=== PATIENT | male | born 1965 | race Asian ===

== ENCOUNTER 2018-08-15 09:41 | Outpatient (REF) | payer BC, SELFPAY ==
[2018-08-15 12:44] LABS: Anion Gap 8.3 mmol/L (3-11); BUN 28 mg/dL (7-18); CO2 28.7 mmol/L (21.0-32.0); CREATININE 1.09 mg/dL (0.70-1.30); Calcium 9.2 mg/dL (8.5-10.1); Chloride 103 mmol/L (98-107); Glucose 172 mg/dL (70-100); Potassium 3.5 mmol/L (3.5-5.1); Sodium 140 mmol/L (136-145)
== END 2018-08-15 10:01 ==
LOC: NCHCN 09:41
PROVIDERS: Visit Provider Nurse Practitioner Family
DX: E10.9 Type 1 diabetes mellitus without complications (principal)
CPT/HCPCS: 80048

== ENCOUNTER 2018-10-31 08:58 | Day surgery (SDC) | payer BC, SELFPAY ==
--- NOTE | 2018-10-31 06:12 | W.COLOREPORT ---
Date of service: 10/31/18 Time of Service: 10:03 Colonoscopy Report Date of procedure: 10/31/18 Pre-op diagnosis general: Colon Cancer Screening Post-op diagnosis procedure note: same Procedure: Colonoscopy Surgeon: Carmel Jackson Anesthesia proc note operative: MAC (Raisa Bhat CRNA/ ASA 3) Estimated blood loss (mL): 0 Pathology: none sent Complications: None Disposition: same day Indications: Mr. Chung is a pleasant 53 year old male seen in the office for a screening colonoscopy. Risks, benefits and complications have been reviewed. Complications include but are not limited to bleeding, pain, perforation, missed small lesion/polyp, sore throat, aspiration and adverse reaction to the medications. Questions were entertained and answered to their satisfaction and they wished to proceed. No guarantees were given or implied. Prep: Miralax/Dulcolax Procedure Start Time: :03 Procedure End Time: 10:41 Retraction Time: 29 minutes Findings: Right sided Diverticulosis Procedure Description: After informed consent was obtained the patient was taken to the procedure room and placed in a left decubitous position. Monitors were applied and a time out was done. The patients name, date of , procedure, allergies to medications and metal in their body was reviewed. The patient was then sedated. Once sedated and comfortable a rectal exam was done. External exam was normal. Internal exam revealed a normal sphincter tone and no palpable masses. The prostate was not felt. The scope was then introduced and retro-flexed. No internal hemorrhoids were identified. The scope was then advanced to the cecum without difficulty. The TI and appendiceal orifice were identified. The prep was OK. There was a lot of bile and bubbles in the right side of the colon. This was irrigated as best as possible. The scope was then slowly retracted over 29 minutes back into the rectum. There were no polyps identified. There was moderate diverticulosis of the right colon. The scope was removed and the patient was woken up and taken back to Same day surgery in stable condition. The patient tolerated the procedure well and there were no immediate complications. Follow up: The patient should follow up in 10 years unless they develop changes in bowel habits or other new gastrointestinal complaints.
--- NOTE | 2018-10-31 06:14 | W.PM.DSUDISC ---
Discharge Plan Disposition Patient Disposition: HOME Condition: Good Discharge Details Reason For Visit: Colon Cancer Screening Attending Provider: Carmel Jackson Primary Care Provider: Silke Lyon Home Meds and New Rx's Prescriptions: Continued cholecalciferol (vitamin D3) 1,000 unit capsule 1,000 unit PO DAILY RF: 0 allopurinol 100 MG tablet 200 mg PO BID RF: 0 metformin [Glucophage] 1,000 MG tablet 1,000 mg PO BID RF: 0 aspirin 325 MG tablet 162 mg PO DAILY RF: 0 chlorthalidone 25 MG tablet 50 mg PO DAILY RF: 0 amlodipine 10 MG tablet 10 mg PO DAILY RF: 0 lisinopril 40 MG tablet 40 mg PO DAILY RF: 0 atorvastatin [Lipitor] 40 MG tablet 40 mg PO DAILY RF: 0 indomethacin 50 MG capsule 50 mg PO TID PRNRF: 0 labetalol 100 MG tablet 100 mg PO BID RF: 0 Tresiba FlexTouch U-200 200 UNIT/ML insulin pen 90 units Sub-Q DAILY RF: 0 Novolin R Regular U-100 Insuln 100 unit/mL solution 40 unit Sub-Q TID RF: 0 Invokana 300 MG tablet 300 mg PO DAILY AM RF: 0 Novolin N NPH U-100 Insulin 100 unit/mL Suspension 70 units subcut HS RF: 0 Discontinued bisacodyl [Dulcolax (bisacodyl)] 5 mg tablet,delayed release (DR/EC) 5 mg PO ONCE Qty: 4 RF: 0 polyethylene glycol 3350 17 gram/dose powder 255 g PO ONCE Qty: 255 RF: 0 Discharge Instructions Instructions: Colonoscopy (DC) Additional Instructions: Findings: Normal colon Follow up: 10 years Please call if you develop: fevers >101.5 Nausea or Vomiting Abdominal pain that is not transient DAY SURGERY UNIT POST COLONOSCOPY INSTRUCTIONS 1. Because there will be medication in your system for the next 24 hours, you may feel a little sleepy. Your coordination will be affected. Therefore: a. Do not drive or operate dangerous equipment for 24 hours. b. Do not drink alcohol beverages for 24 hours (not even beer). c. Plan to go home and rest for the day. 2. Generally there are no restrictions on your activity after a day or so has gone by, but you may feel a bit fatigued for a few days. 3 After you arrive home you may have a light meal and return to a normal diet as you can tolerate it without feeling sick to your stomach. 4. After surgery, you may feel pain or discomfort. This should be only transient, but if it persists please contact your doctor. 5. If there are any questions regarding the findings of your procedure, please feel free to contact your doctor. 6. If you are unable to contact your doctor with a problem, contact the hospital at [phone]. 7. Continue all your regular medications unless directed otherwise. I understand the above instructions and have no questions. Signature of Patient or Responsible Adult Escort Date/Time Name of Responsible Adult Escort Signature of Nurse Date/Time Activity:: Activity as Tolerated Diet:: As Tolerated Discharge Orders Discharge Orders: Discharge Order (Routine); Ordered 10/31/18 Ordered By: Carmel Jackson DS: Diagnosis Discharge Diagnosis (1) S/P colonoscopy: Status: Acute
[2018-10-31 09:18] VITALS: BP 137/77; PULSE 72; RESP 16; TEMP 35.9; O2SAT 96
[2018-10-31] MEDS: Lactated Ringers 1,000 ML 80 ML IV (09:48)
[2018-10-31 11:23] VITALS: BP 135/84; PULSE 73; RESP 16; TEMP 36
== END 2018-10-31 11:27 | disposition home or self-care (01) ==
PROVIDERS: PCP Nurse Practitioner Family; Visit Provider Surgery
PROC: 0DJD8ZZ Inspection of Lower Intestinal Tract, Via Natural or Artificial Opening Endoscopic (ICD-10-PCS; CPT 45378; principal; 2018-10-31 10:00)
DX: Z12.11 Encounter for screening for malignant neoplasm of colon (principal); K57.30 Diverticulosis of large intestine without perforation or abscess without bleeding; E11.9 Type 2 diabetes mellitus without complications; Z79.4 Long term (current) use of insulin; I10 Essential (primary) hypertension; G47.33 Obstructive sleep apnea (adult) (pediatric)
CPT/HCPCS: 45378

== ENCOUNTER 2019-03-27 01:22 | Outpatient (CLI) | payer BC, SELFPAY ==
--- NOTE | 2019-03-27 10:20 | DIABASSESS_ITS ---
DESCRIPTION/ASSESSMENT: Johnson Chung presents for diabetes self management focused on nutrition. Current A1c 9.7. He sees Dr. Deal at [facility] for diabetes management. He reports medication regimen of Tresiba 90 units; NPH 70 units; Regular insulin 40 units per meal. He also takes Invocana and Metformin. States he has had 4 hypoglycemic episodes in 10 years. Johnson admits he 'likes to eat' and also recognizes that he stress eats. He describes being bullied as a kid and was determined to be bigger than those kids. He has 2 eggs, 2 sausage, hash browns and a [place] toast for breakfast; sandwich and diet soda for lunch; 2 cans corporate executive chef boy R iris for lunch with banana, yoplait and 2 diet sodas. He has a slim steven at break. For supper his cooks him noodles or fried rice. In the evening he eats pringles. He admits to high stress caring for 2 adult children with autism. His spends her time at home napping or watching TV. Three nights a week they eat with his mother. States he is drained at the end of his work day and does no physical activity. INTERVENTION: Discussed his goals for diabetes. He would like to 'get in shape'. Reviewed long-term complications of uncontrolled diabetes. Discussed food choices he could change. He can give up rice, but not noodles. Discussed hunger when snacking in the evening. Discussed possible supports for changing some behaviors including seeing the Behavioral Therapist at his provider office. Discussed bariatric surgery and need to find a different stress management plan if he chooses surgery. PLAN: He will look at ways to decrease the volume of food by cutting one item at breakfast; cutting lunch to 1 can of food; increasing vegetables. He will consider bariatric surgery Referral will be made to Behavioral Health Specialist at [facility] Individual MNT __3__ units billed TIME IN: 1020 OUT: 1110 No DM group education series being offered at this time.
== END 2019-03-27 01:42 ==
PROVIDERS: PCP Nurse Practitioner Family; Visit Provider Dietitian, Registered
DX: E11.9 Type 2 diabetes mellitus without complications (principal); Z79.4 Long term (current) use of insulin; Z71.3 Dietary counseling and surveillance
CPT/HCPCS: 97802

== ENCOUNTER 2019-04-10 01:13 | Outpatient (CLI) | payer BC, SELFPAY ==
--- NOTE | 2019-04-10 13:15 | DIABASSESS_ITS ---
DESCRIPTION/ASSESSMENT: Johnson Chung presents for diabetes follow up focused on weight management. He feels he is eating less with the help of Trulicity. He has cut his portion of egg, sausage, and has given up potato at breakfast. He has cut rice portion by 1/2 and will eat only 1 can of Tire Worker boy R D. He still loves noodles. He does admit snacking on junk food at times. He is having trouble with exercise and feels this is his biggest action to work on. 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 States his fasting blood sugar is generally 135-195. INTERVENTION: Discussed food choices; hunger/fullness. Encouraged him to continue decreasing his portions to prevent stomach upset. Further suggested he may need to decrease his insulin. Reviewed hypoglycemia symptoms. Brainstormed physical activity ideas. He thinks he may be able to go to the gym on weekends and take his kids. He also agrees to walk 20 minutes after supper twice in a week. Did take random blood sugar after lunch at 235. Given his complicated insulin regimen, he may benefit from wearing the Professional CGM and will discuss this with him at his follow up appointment. ACTION PLAN: Walk 2 days a week after supper 20 minutes; use [employer] [facility] on weekend Continue cutting portions; watch for hypoglycemia symptoms. Individual MNT __2__ units billed No DM group education series being offered at this time.
== END 2019-04-10 01:33 ==
PROVIDERS: PCP Nurse Practitioner Family; Visit Provider Dietitian, Registered
DX: E11.9 Type 2 diabetes mellitus without complications (principal); Z79.4 Long term (current) use of insulin; Z71.3 Dietary counseling and surveillance
CPT/HCPCS: 97803

== ENCOUNTER 2019-06-05 09:56 | Emergency (ER) | payer BC, SELFPAY ==
[2019-06-05 10:07] VITALS: BP 132/66; PULSE 78; RESP 20; TEMP 36.8; O2SAT 97
--- NOTE | 2019-06-05 10:17 | W.ED.GENAD ---
Discharge Plan Disposition Patient Disposition: HOME Condition: Good Discharge Details Chief Complaint: Orthopedic Clinical Impression: Elbow tendinitis Primary Care Provider: Silke Lyon ED Provider: Hina Hudson Home Meds and New Rx's Prescriptions: Continued cholecalciferol (vitamin D3) 1,000 unit capsule 1,000 unit PO DAILY RF: 0 Trulicity 1.5 mg/0.5 mL pen injector 1.5 mg SC QWEEK RF: 0 allopurinol 100 MG tablet 200 mg PO BID RF: 0 metformin [Glucophage] 1,000 MG tablet 1,000 mg PO BID RF: 0 aspirin 325 MG tablet 162 mg PO DAILY RF: 0 chlorthalidone 25 MG tablet 50 mg PO DAILY RF: 0 amlodipine 10 MG tablet 10 mg PO DAILY RF: 0 lisinopril 40 MG tablet 40 mg PO DAILY RF: 0 atorvastatin [Lipitor] 40 MG tablet 40 mg PO DAILY RF: 0 indomethacin 50 MG capsule 50 mg PO TID PRNRF: 0 labetalol 100 MG tablet 100 mg PO BID RF: 0 Tresiba FlexTouch U-200 200 UNIT/ML insulin pen 90 units Sub-Q DAILY RF: 0 Novolin R Regular U-100 Insuln 100 unit/mL solution 40 unit Sub-Q TID RF: 0 Invokana 300 MG tablet 300 mg PO DAILY AM RF: 0 Novolin N NPH U-100 Insulin 100 unit/mL Suspension 70 units subcut HS RF: 0 Discharge Instructions Instructions: Tendinitis (ED) Additional Instructions: Ice packs or ice massage to the area as discussed. Rest activities as tolerated. Use forearm strap for tennis elbow strap as discussed. May use Tylenol for soreness if needed. May use your indomethacin or ibuprofen for inflammation if needed for 3 days. Follow-up with your orthopedic doctor for reevaluation Return for any worsening or concerns sooner if needed Stand Alone Forms: Work Release Discharge Data Discharge Date/Time-TO BE ENTERED AT DEPARTURE: 06/05/19 10:32 Medical Decision Making Patient's history and physical exam are consistent with lateral epicondylitis of the left arm with tendinitis. Recommended conservative treatments. Patient agrees with plan of care. Is undergoing physical therapy for the right arm as well as under orthopedic evaluation for right arm tendinitis. He will follow with his specialist. Tennis elbow strap encouraged. HPI General Date/Time Provider Initiated Documentation: 06/05/19 10:07. HPI Narrative: Patient presents for complaints of left elbow pain. Patient denies any injury or trauma. Patient is currently undergoing treatment with orthopedic doctor as well as physical therapy for right elbow tendinitis. Has been minimizing use of right elbow therefore increasing use of left arm. Now having onset of left arm soreness which is very similar nature. Again denies any injury or trauma. No associated numbness, tingling or weakness. Patient reports pain at the lateral elbow as well as into the forearm worse with range of motion. Improved with rest. Worse in the last few days. No rashes at the site. No ill feeling. No other concerns or complaints at this time Related Data Home Medications Medication Instructions Recorded Confirmed allopurinol 200 mg PO BID 06/09/13 06/05/19 amlodipine 10 mg PO DAILY 06/09/13 06/05/19 aspirin 162 mg PO DAILY 06/09/13 06/05/19 chlorthalidone 50 mg PO DAILY 06/09/13 06/05/19 lisinopril 40 mg PO DAILY 06/09/13 06/05/19 metformin [Glucophage] 1,000 mg PO BID 06/09/13 06/05/19 Invokana 300 mg PO DAILY AM 08/14/16 06/05/19 Tresiba FlexTouch U-200 90 units SUB-Q DAILY 10/12/17 06/05/19 atorvastatin [Lipitor] 40 mg PO DAILY 10/12/17 06/05/19 indomethacin 50 mg PO TID PRN 10/12/17 06/05/19 labetalol 100 mg PO BID 10/12/17 06/05/19 cholecalciferol (vitamin D3) 1,000 1,000 unit PO DAILY 10/10/18 06/05/19 unit capsule insulin regular human 100 unit/mL 40 unit SUB-Q TID ml 10/10/18 06/05/19 injection solution Novolin N NPH U-100 Insulin 70 units SUBCUT HS 10/27/18 06/05/19 dulaglutide 1.5 mg/0.5 mL 1.5 mg SC QWEEK 03/27/19 06/05/19 subcutaneous pen injector Allergies Allergy/AdvReac Type Severity Reaction Status Date / Time No Known Allergies Allergy Unverified 06/05/19 10:10 General Stated Complaint: Orthopedic NOEMI: 4 Review of Systems Review of Systems Narrative: CONSTITUTIONAL: The patient denies fevers, chills. EYES: Denies vision changes, blurry vision, or eye pain. ENT: Denies hearing changes, tinnitus, vertigo, sore throat. CARDIAC: Denies chest pain, SOB. RESPIRATORY: Denies cough, sputum. Denies difficulty breathing. GASTROINTESTINAL: Denies abdominal pain, changes in bowel, vomiting or nausea. GENITOURINARY: Denies dysuria, or frequency of urination. MUSCULOSKELETAL: No gait changes. Patient with left elbow pain and forearm pain. NEUROLOGIC: Denies headaches, Denies focal weakness. Denies numbness. INTEGUMENT: Denies rashes. PSYCHIATRIC: Denies behavior changes. Denies anxiety or depression. ENDOCRINOLOGY: Denies fatigue. 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 Well hydrated. Alert and alert. HENMT: Head nomocephalic, normal to inspection. Atraumatic. Hearing grossly normal. EYES: General normal appearance. Alignment normal. Eyelids normal. Conjunctiva normal. NECK: Normal visual inspection. FROM. Trachea midline. No Midline tenderness. CHEST: Normal insepection of the chest. RESP: Normal respiratory effort. Speaking full sentences. No cough. No audible wheezing. No retractions. CARDIO: No JVD. MUSCULOSKELETAL: Normal Gait. FROM of all extremities. No shoulder pain with palpation. No humeral pain with palpation. Mild lateral epic condyle tenderness. Mild forearm tenderness. No wrist pain with palpation. Pain in the elbow with flexion of the wrist. Pulses intact distally. No skin rashes. Setter Induction Heating Equipment strength intact. Distal neurovascularly intact SKin: intact, dry no rash NEURO: Alert and awake. Speech clear. PSYCH: Normal affect. Cooperative. Course Vital Signs Vital signs: Vital Signs Temperature 36.8 C 06/05/19 10:07 Pulse 78 06/05/19 10:07 Respiratory Rate 20 06/05/19 10:07 Blood Pressure 132/66 06/05/19 10:07 Pulse Oximetry 97 06/05/19 10:07 Temperature 36.8 C 06/05/19 10:07 Temperature Source Skin 06/05/19 10:07 Pulse 78 06/05/19 10:07 Respiratory Rate 20 06/05/19 10:07 Blood Pressure 132/66 06/05/19 10:07 Blood Pressure Position Sitting 06/05/19 10:07 Pulse Oximetry 97 06/05/19 10:07 Oxygen Delivery Method Room Air 06/05/19 10:07 Oxygen Flow Rate 0 06/05/19 10:07 Pain Level 6 06/05/19 10:07
== END 2019-06-05 10:32 | disposition home or self-care (01) ==
PROVIDERS: Emergency Provider Physician Assistant; PCP Nurse Practitioner Family
DX: M77.12 Lateral epicondylitis, left elbow (principal); M77.9 Enthesopathy, unspecified; E11.9 Type 2 diabetes mellitus without complications; Z79.4 Long term (current) use of insulin; I10 Essential (primary) hypertension
CPT/HCPCS: 99283

== ENCOUNTER 2019-09-24 08:30 | Emergency (ER) | payer BC, SELFPAY ==
[2019-09-24 08:33] VITALS: BP 149/84; PULSE 88; TEMP 36.2; O2SAT 95
--- NOTE | 2019-09-24 08:53 | ED.GENADUL_ITS ---
Discharge Plan Disposition Patient Disposition: HOME Condition: Stable Discharge Details Chief Complaint: Cellulitis Clinical Impression: Leg wound, right, Bilateral leg edema Primary Care Provider: Silke Lyon ED Provider: Jordyn Huff Home Meds and New Rx's Prescriptions: New mupirocin 2 % ointment 1 applic TP TID Qty: 15 RF: 0 cephalexin [Keflex] 500 mg capsule 500 mg PO QID 7 Days Qty: 28 RF: 0 Continued cholecalciferol (vitamin D3) 1,000 unit capsule 1,000 unit PO DAILY RF: 0 Trulicity 1.5 mg/0.5 mL pen injector 1.5 mg SC QWEEK RF: 0 allopurinol 100 MG tablet 200 mg PO BID RF: 0 metformin [Glucophage] 1,000 MG tablet 1,000 mg PO BID RF: 0 aspirin 325 MG tablet 162 mg PO DAILY RF: 0 chlorthalidone 25 MG tablet 50 mg PO DAILY RF: 0 amlodipine 10 MG tablet 10 mg PO DAILY RF: 0 lisinopril 40 MG tablet 40 mg PO DAILY RF: 0 atorvastatin [Lipitor] 40 MG tablet 40 mg PO DAILY RF: 0 indomethacin 50 MG capsule 50 mg PO TID PRNRF: 0 labetalol 100 MG tablet 100 mg PO BID RF: 0 Tresiba FlexTouch U-200 200 UNIT/ML insulin pen 90 units Sub-Q DAILY RF: 0 Novolin R Regular U-100 Insuln 100 unit/mL solution 40 unit Sub-Q TID RF: 0 Invokana 300 MG tablet 300 mg PO DAILY AM RF: 0 Novolin N NPH U-100 Insulin 100 unit/mL Suspension 70 units subcut HS RF: 0 Discharge Instructions Instructions: Acute Wound Care (ED), Leg Edema (ED) Additional Instructions: Keep wound clean and dry. Apply the topical Bactroban ointment to the affected area 3 times daily. Cover the wound with a nonadherent dressing. Wear compression stockings as much as possible to help with your leg swelling. If you have no relief or worsening of leg pain, swelling, redness, start the oral antibiotics. Call your primary care doctor tomorrow to schedule a follow-up appointment for reevaluation this week. Return immediately to the emergency department if you develop any significant worsening of symptoms including fever, red streaking or significant pain. Discharge Data Discharge Physician: Jordyn Huff Medical Decision Making 54-year-old male with a history of morbid obesity, gout, diabetes presents with right leg wound for the past few days. He states he initially sustained the wound on a piece of sharp edge of aluminum 1 year ago which then mostly healed and then returned a few days ago. He denies any known specific new injury. Right distal lateral leg notes two small wounds which appear very minimally superficially infected. There is no evidence of an abscess. He appears nontoxic. Patient has significantly indurated bilateral lower extremities which appear chronic and likely due to patient's frequent standing at work, his weight, and possibly an element of lymphedema. He states he had worn compression stockings 1 year ago but not since then. The area was cleaned and topical antibiotic ointment and nonadherent dressing was placed. We will give a prescription for Bactroban which I think will likely be sufficient at this time. I stressed the importance to patient to keep his legs elevated and wear compression stockings as much as possible as this will be most beneficial for wound healing. We will also send with a prescription for Keflex if symptoms do not improve or worsen. He was advised to follow-up with his primary care doctor this week for reevaluation. Usual and customary return precautions given prior to discharge. Medical Records Medical records reviewed: Yes I reviewed the patient's medical records. HPI General Mode of arrival: ambulatory . Date/Time Provider Initiated Documentation: 09/24/19 08:41 . Limitations to Documentation: no limitations . Information obtained by: patient . History of Present Illness 54 year old M presents to the emergency department with the chief complaint of R leg wound, Quality is described as aching, Patient started experiencing this day(s) (4) and it has been constant. No relieving factors improve symptom(s), No exacerbating factors reported . Patient notes denies fever/chills, headaches, loss of appetite, malaise, seizure, shortness of breath, syncope and weakness. Patient did receive the following treatments prior to arrival, other (topical antibiotic ointment) Related Data Home Medications Medication Instructions Recorded Confirmed allopurinol 200 mg PO BID 06/09/13 09/24/19 amlodipine 10 mg PO DAILY 06/09/13 09/24/19 aspirin 162 mg PO DAILY 06/09/13 09/24/19 chlorthalidone 50 mg PO DAILY 06/09/13 09/24/19 lisinopril 40 mg PO DAILY 06/09/13 09/24/19 metformin [Glucophage] 1,000 mg PO BID 06/09/13 09/24/19 Invokana 300 mg PO DAILY AM 08/14/16 09/24/19 Tresiba FlexTouch U-200 90 units SUB-Q DAILY 10/12/17 09/24/19 atorvastatin [Lipitor] 40 mg PO DAILY 10/12/17 09/24/19 indomethacin 50 mg PO TID PRN 10/12/17 09/24/19 labetalol 100 mg PO BID 10/12/17 09/24/19 cholecalciferol (vitamin D3) 25 1,000 unit PO DAILY 10/10/18 09/24/19 mcg (1,000 unit) capsule insulin regular human 100 unit/mL 40 unit SUB-Q TID ml 10/10/18 09/24/19 injection solution Novolin N NPH U-100 Insulin 70 units SUBCUT HS 10/27/18 09/24/19 dulaglutide 1.5 mg/0.5 mL 1.5 mg SC QWEEK 03/27/19 09/24/19 subcutaneous pen injector cephalexin [Keflex] 500 mg PO QID 7 Days #28 cap 09/24/19 mupirocin 1 applic TP TID #15 gm 09/24/19 Previous Rx's Medication Instructions Recorded cephalexin [Keflex] 500 mg PO QID 7 Days #28 cap 09/24/19 mupirocin 1 applic TP TID #15 gm 09/24/19 Allergies Allergy/AdvReac Type Severity Reaction Status Date / Time No Known Allergies Allergy Unverified 09/24/19 08:42 General Stated Complaint: Cellulitis NOEMI: 4 Review of Systems All systems reviewed & are unremarkable except as noted in HPI and below Constitutional Constitutional: Reports as per HPI, Denies chills and Denies fever(s) Eyes Eyes: Denies blurry vision ENT Ears, Nose, Mouth, and Throat: Denies dizziness, Denies sore throat and Denies throat swelling Cardiovascular Cardiovascular: Denies chest pain and Denies dyspnea Respiratory Respiratory: Denies cough and Denies dyspnea Gastrointestinal Gastrointestinal: Denies abdominal pain, Denies diarrhea and Denies vomiting Genitourinary Genitourinary: Denies hematuria and Denies dysuria Musculoskeletal Musculoskeletal: Denies back pain and Denies numbness Integumentary/Breasts Skin/Breast: Reports lesions and Denies rash Neurologic Neurologic: Denies dizziness, Denies focal weakness and Denies numbness Allergic/Immunologic Allergic/Immunologic: Denies throat swelling [facility] Medical History Diastolic heart failure (Chronic) Glaucoma, bilateral (Chronic) Gout (Chronic) Hyperlipidemia (Chronic) Hypertension (Chronic) 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) Joint stiffness (Chronic) Morbid obesity (Chronic) Obstructive sleep apnea (Chronic) Proteinuria (Chronic) Retinal lattice degeneration (Chronic) Surgical History S/P colonoscopy (Acute ~10/31/18) Social History Smoking/Tobacco Use Status: Never Alcohol Intake: never Drug use: Never Current gender identity: male Do you feel safe at home: Yes Do you feel safe in your relationship?: Yes Exam Const General: cooperative, healthy appearing and no acute distress HENMT Head: normal to inspection Face and sinus: normal facial exam Eyes General: appearance normal, both eyes and all related structures EOM: EOM intact bilaterally Neck Neck: normal visual inspection and No submandibular swelling Lymphatic: no lymphadenopathy noted Chest Chest: normal inspection of the chest and no tenderness Resp Effort & Inspection: normal respiratory effort and able to speak in complete sentences Auscultation: clear to auscultation bilaterally Cardio Rate: regular rate Rhythm: regular rhythm GI Inspection: normal to inspection and obesity Palpation: soft, not firm, not rigid and nontender Auscultation: normal bowel sounds Neuro General: alert, awake and oriented x3 Cognition: normal cognition Speech: speech normal Motor: muscle tone normal throughout Sensory Exam: no sensory deficits noted Extrem General: normal to inspection, full ROM, normal capillary refill, no calf t enderness bilaterally and no edema Ankle/foot/toe images: 1. Two wounds - One 1x2cm and One 1x1cm open wound on right lateral distal leg. There is minimal surrounding erythema around each wound but with extensive induration of entire right and left leg. Psych Appearance: grossly normal Mental Status: mental status grossly normal Speech and Movement: speech and movement normal Affect: normal affect Course Vital Signs Vital signs: Vital Signs Temperature 97.2 F L 09/24/19 08:33 Pulse 88 09/24/19 08:33 Blood Pressure 149/84 H 09/24/19 08:33 Pulse Oximetry 95 09/24/19 08:33 Temperature 97.2 F L 09/24/19 08:33 Temperature Source Skin 09/24/19 08:33 Pulse 88 09/24/19 08:33 Respiratory Effort Non-Labored 09/24/19 08:47 Respiratory Depth Normal 09/24/19 08:47 Respiratory Pattern Normal 09/24/19 08:47 Blood Pressure 149/84 H 09/24/19 08:33 Blood Pressure Position Sitting 09/24/19 08:33 Pulse Oximetry 95 09/24/19 08:33 Oxygen Delivery Method Room Air 09/24/19 08:33 Oxygen Flow Rate 0 09/24/19 08:33 Pain Level 2 09/24/19 08:47
== END 2019-09-24 09:13 | disposition home or self-care (01) ==
PROVIDERS: Emergency Provider Physician Assistant; PCP Nurse Practitioner Family
DX: S81.811A Laceration without foreign body, right lower leg, initial encounter (principal); W26.8XXA Contact with other sharp object(s), not elsewhere classified, initial encounter; L03.115 Cellulitis of right lower limb; R60.0 Localized edema; E11.9 Type 2 diabetes mellitus without complications; Z79.4 Long term (current) use of insulin; E66.01 Morbid (severe) obesity due to excess calories; Z68.42 Body mass index [BMI] 45.0-49.9, adult; I10 Essential (primary) hypertension
CPT/HCPCS: 99283

== ENCOUNTER 2020-07-19 18:05 | Outpatient (REF) | payer BC, SELFPAY ==
[2020-07-19 20:17] LABS: Anion Gap 7.5 mmol/L (3-11); BUN 43 mg/dL (7-18); CO2 29.5 mmol/L (21.0-32.0); CREATININE 1.53 mg/dL (0.70-1.30); Calcium 9.1 mg/dL (8.5-10.1); Chloride 101 mmol/L (98-107); Estimated GFR 48.04 (mL/min/1.73m2); Glucose 332 mg/dL (74-106); Potassium 3.3 mmol/L (3.5-5.1); Sodium 138 mmol/L (136-145)
== END 2020-07-19 18:25 ==
LOC: NCHCN 18:05
PROVIDERS: PCP Nurse Practitioner Family; Visit Provider Physician Assistant
DX: R60.0 Localized edema (principal)
CPT/HCPCS: 80048

== ENCOUNTER 2020-08-12 14:56 | Outpatient (REF) | payer BC, SELFPAY ==
[2020-08-12 20:29] LABS: HGB 11.7 g/dL (13.5-17.5); MCH 30.5 pg (27.0-33.0); MCHC 32.5 % (32.0-36.0); MPV 11.6 fL (8.0-11.0); Platelet Count 173 10^3/uL (130-400); RBC 3.83 10^6/uL (4.36-5.78); RDW 12.3 % (11.8-14.1); RDW-SD 42.6 fL
[2020-08-12 20:46] LABS: ALT 38 U/L (16-63); AST 21 U/L (15-37); Albumin 3.3 g/dL (3.4-5.0); Alkaline Phosphatase 88 U/L (46-116); Anion Gap 10.2 mmol/L (3-11); BUN 49 mg/dL (7-18); Bilirubin, Total 0.3 mg/dL (0.2-1.0); CO2 24.8 mmol/L (21.0-32.0); Calcium 8.1 mg/dL (8.5-10.1); Chloride 101 mmol/L (98-107); Estimated GFR 39.67 (mL/min/1.73m2); Glucose 293 mg/dL (74-106); Potassium 3.7 mmol/L (3.5-5.1); Sodium 136 mmol/L (136-145); Total Protein 6.7 g/dL (6.4-8.2)
== END 2020-08-12 15:16 ==
LOC: NCHCN 14:56
PROVIDERS: PCP Nurse Practitioner Family; Visit Provider Physician Assistant
DX: R60.0 Localized edema (principal)
CPT/HCPCS: 80053; 85027

== ENCOUNTER 2020-08-26 10:56 | Outpatient (REF) | payer BC, SELFPAY ==
[2020-08-26 19:15] LABS: Anion Gap 8.4 mmol/L (3-11); BUN 36 mg/dL (7-18); CO2 24.6 mmol/L (21.0-32.0); CREATININE 1.46 mg/dL (0.70-1.30); Calcium 8.2 mg/dL (8.5-10.1); Chloride 104 mmol/L (98-107); Cholesterol 200 mg/dL (<200); Estimated GFR 50.51 (mL/min/1.73m2); Glucose 149 mg/dL (74-106); HDL Cholesterol 33 mg/dL (40-60); Potassium 3.9 mmol/L (3.5-5.1); Sodium 137 mmol/L (136-145); Triglyceride 622 mg/dL (<150)
[2020-08-26 19:45] LABS: LDL CHOLESTEROL 56 mg/dL (<100)
[2020-08-26 20:52] LABS: Hemoglobin A1C 7.8 % (<5.7)
== END 2020-08-26 11:16 ==
LOC: NCHCN 10:56
PROVIDERS: PCP Nurse Practitioner Family; Visit Provider Physician Assistant
DX: E10.9 Type 1 diabetes mellitus without complications (principal); Z79.4 Long term (current) use of insulin; R60.0 Localized edema; N28.9 Disorder of kidney and ureter, unspecified
CPT/HCPCS: 80048; 80061; 83721; 83036

== ENCOUNTER 2020-09-11 00:31 | Outpatient (CLI) | payer BC, SELFPAY ==
--- NOTE | 2020-09-11 14:50 | DI.US_ITS ---
APPROVED REPORT EXAM: Comprehensive 2D, Doppler, and color-flow Echocardiogram Patient Location: Out-Patient Baker: Lita Rodriguez RDCS (AE) Indications: Bilateral leg edema Other Information Study Quality: Fair. Technically limited study due to body habitus. Conclusion Left Ventricle : The left ventricle is normal size. The left ventricular systolic function is normal. The left ventricular ejection fraction is within the normal range. There is normal left ventricular wall thickness. There is normal LV segmental wall motion. Diastolic function is indeterminate. LVEF i s 57%. Right Ventricle : Right ventricle is not well visualized. Right ventricular systolic function could n ot be assessed. Atria : The left atrium size is normal. The right atrium size is normal. Mitral Valve : Moderate mitral annular calcification. Trace mitral regurgitation. No evidence of mitr al valve stenosis. Great Vessels : The aortic root is normal in size. The ascending aorta is mildly dilated IVC is norm al in size and collapses >50% with inspiration. Wall motion Left Ventricle The left ventricle is normal size. The left ventricular systolic function is normal. The left ventric ular ejection fraction is within the normal range. There is normal left ventricular wall thickness. T here is normal LV segmental wall motion. Diastolic function is indeterminate. There is no ventricular septal defect visualized. LVEF is 57%. Right Ventricle Right ventricle is not well visualized. Right ventricular systolic function could not be assessed. Atria The left atrium size is normal. The right atrium size is normal. The interatrial septum is intact wit h no evidence for an atrial septal defect. Aortic Valve The aortic valve is normal in structure. Aortic valve is trileaflet. There is no aortic valvular sten osis. No aortic regurgitation is present. Mitral Valve Moderate mitral annular calcification. No evidence of mitral valve stenosis. Trace mitral regurgitati on. Tricuspid Valve The tricuspid valve is normal in structure. There is no tricuspid valve stenosis. Trace tricuspid reg urgitation. Unable to assess PA pressure. Pulmonic Valve The pulmonary valve is normal in structure. There is no pulmonic valvular stenosis. Trace pulmonic re gurgitation. Great Vessels The aortic root is normal in size. The ascending aorta is mildly dilated IVC is normal in size and co llapses >50% with inspiration. Pericardium There is no pericardial effusion. 2D Dimensions IVSD d PLAX 1.18 cm M: 0.6-1.2 LV Vol A2C d MOD 113.2 mL LVPW d PLAX 1.17 cm M: 0.6 - 1.2 LV Vol A4C d MOD 180.6 mL LVID d PLAX 5.52 cm M: 4.2 - 5.8 LA vol/ BSA A2C s A-L 28.6 mL/m2 LVDs 3.75 cm M: 2.5 - 4.0 LA vol/ BSA A4C s A-L 24.6 mL/m2 Ao Root d 3.45 cm M: 3.1 - 3.7 LA Vol/ BSA Biplane s A-L 26.7 mL/m2 RA Area A4C 14.49 cm2 LA Area A4C s MOD 19.72 cm2 RA Vol/ BSA A4C s A-L 14.5 mL/m2 LA Area A2C s MOD 21.13 cm2 Ao Asc Diam d 3.80 cm M: 2.6 - 3.4 LV EF A4C MOD 57.2 % LV EF Teichholz 59.4 % LV EF A2C MOD 55.6 % LVEF (Raya's) 53.90 % M: 52 - 72 LV EF Biplane MOD 53.9 % LV Volume 102.28 mL M: 62 - 150 SV 78.65 mL LV Volume Index 41.07 mL/m2 M: 34 - 74 SV Index 31.61 mL/m2 LV Vol Biplane MOD 145.9 mL FS 31.90 % M-Mode TAPSE 2.13 cm (M/F) >1.7 LV Diastology MV E' medial 0.049 (>0.07 m/s) E/A Ratio 1.0 LV E/e MED 12.60 (<14) MV E Vmax 0.62 (0.4-1.3 m/s) MV E' lateral 0.087 (>0.1 m/s) MV A Vmax 0.60 (0.4-1.3 m/s) LV E/e LAT 7.05 (<14) MV E/A Ratio 0.99 MV E/E' medial 12.60 MV E/E' lateral 7.08 Aortic Valve LVOT Area 4.02 cm2 AoV Area Vmax 2.79 cm2 LVOT Vmax 1.03 m/s AoV Area/ BSA (Vmax) 1.12 cm2/m2 LVOT Mean Abel. 0.67 m/s TALA Mean Abel. 2.63 cm2 LVOT Peak Grad 4.2 mmHg TALA Mean Abel. Index 1.06 cm2/m2 LVOT Mean Grad 2.1 mmHg LVOT VTI 0.180 m LVOT Diam s 2.25 cm AoV Vmax 1.48 m/s Velocity Ratio 0.69 AoV Mean Abel. 1.03 m/s AoV Peak Grad 8.8 mmHg LVOT SV 72.44 mL AoV Mean Grad 5.0 mmHg AoV VTI 0.231 m AoV Area VTI 3.13 cm2 AoV Area/ BSA (VTI) 1.26 cm/m2 Mitral Valve MV DT 282 (160-240 msec) MV PHT 82 msec MV Area PHT 2.69 cm2 MV VTI 0.194 m MV VTI Annulus 0.201 m MV Area VTI 3.87 (4.0-6.0 cm2) Pulmonary Valve PV Vmax 1.19 (0.5-1.5 m/s) RVOT Peak Gr. 2.49 mmHg PV Peak Grad 5.6 mmHg RVOT Mean Gr. 1.15 mmHg PV Mean Grad 2.9 mmHg RVOT VTI 0.134 m PV VTI 0.202 m RVOT Vmax 0.79 m/s
== END 2020-09-11 00:51 ==
PROVIDERS: PCP Nurse Practitioner Family; Visit Provider Physician Assistant
DX: I77.810 Thoracic aortic ectasia (principal)
CPT/HCPCS: 93306

== ENCOUNTER 2020-12-06 18:12 | Outpatient (REF) | payer BC, SELFPAY ==
[2020-12-06 19:07] LABS: Anion Gap 11.7 mmol/L (3-11); BUN 51 mg/dL (7-18); CO2 23.3 mmol/L (21.0-32.0); CREATININE 1.9 mg/dL (0.70-1.30); Calcium 8.8 mg/dL (8.5-10.1); Chloride 103 mmol/L (98-107); Estimated GFR 37.27 (mL/min/1.73m2); Glucose 174 mg/dL (74-106); Magnesium 1.9 mg/dL (1.8-2.4); Potassium 4.5 mmol/L (3.5-5.1); Sodium 138 mmol/L (136-145)
== END 2020-12-06 18:13 | disposition home or self-care (01) ==
LOC: NCHCN 18:12
PROVIDERS: PCP Nurse Practitioner Family; Visit Provider Nurse Practitioner Family
DX: I10 Essential (primary) hypertension (principal); E10.9 Type 1 diabetes mellitus without complications; Z79.4 Long term (current) use of insulin
CPT/HCPCS: 80048; 83735

== ENCOUNTER 2021-02-01 12:22 | Observation (INO) | payer BC, SELFPAY ==
[2021-02-01] VITALS (16 sets, daily range): BP systolic 109–145; BP diastolic 43–72; PULSE 91–104; RESP 18–32; TEMP 37.1–38.8; O2SAT 91–98
--- NOTE | 2021-02-01 12:30 | RT.EKG_ITS ---
APPROVED REPORT Exam: Resting ECG Reason for Exam: weakness,nausea Patient Location: E HR:99 bpm ECG Measurements Heart Rate 99 AXIS [place] 188 P 46 QRSd 96 QRS 12 QT 318 T 39 QTc 409 Conclusion Sinus rhythm...normal P axis, V-rate 60- 99 ST elev, probable normal early repol pattern...ST elevation, age<55
[2021-02-01] MEDS: Normal Saline 1,000 ML 1000 ML IV ×2 (12:49→23:37)
[2021-02-01 12:51] LABS: Abs Immature Grans 0.06 10^3/uL (0.0-0.06); Absolute Basophil Count 0.02 10^3/uL (0.0-0.2); Absolute Eosinophil Count 0.02 10^3/uL (0.0-0.7); Absolute Lymphocyte Count 0.92 10^3/uL (1.2-3.4); Absolute Neutrophil Count 9.13 10^3/uL (1.2-6.7); Basophils % 0.2; Eosinophils % 0.2; HGB 9.9 g/dL (13.5-17.5); Immature Grans % 0.5; MCH 31.1 pg (27.0-33.0); MCV 94.3 fL (80-95); MPV 8.8 fL (8.0-11.0); Monocytes % 11.4; Neutrophils % 79.7; Nucleated RBC 0 %; Platelet Count 193 10^3/uL (130-400); RBC 3.18 10^6/uL (4.36-5.78); RDW 12.2 % (11.8-14.1); RDW-SD 42.2 fL; WBC 11.45 10^3/uL (4.4-10.8)
[2021-02-01 12:52] LABS: Absolute Monocyte Count 1.31 10^3/uL (0.1-0.8)
[2021-02-01 13:04] LABS: INR 1.1 (0.9-1.1); PTT Activated 31.9 sec (21.0-27.5); Prothrombin Time 11.3 sec (9.3-11.0)
[2021-02-01 13:05] LABS: Source Nasal/Nares
[2021-02-01 13:06] LABS: ALT 28 U/L (16-63); AST 15 U/L (15-37); Albumin 2.9 g/dL (3.4-5.0); Alkaline Phosphatase 90 U/L (46-116); Anion Gap 9.6 mmol/L (3-11); BUN 39 mg/dL (7-18); Bilirubin, Total 0.6 mg/dL (0.2-1.0); CO2 24.4 mmol/L (21.0-32.0); CREATININE 1.8 mg/dL (0.70-1.30); Calcium 8.8 mg/dL (8.5-10.1); Chloride 99 mmol/L (98-107); Estimated GFR 39.67 (mL/min/1.73m2); Glucose 144 mg/dL (74-106); Magnesium 1.8 mg/dL (1.8-2.4); Potassium 5.3 mmol/L (3.5-5.1); Sodium 133 mmol/L (136-145); Total Protein 7.7 g/dL (6.4-8.2); Troponin I < 0.05 ng/mL (<0.06)
[2021-02-01 13:37] LABS: D-Dimer 527 ng/mlFEU (<500)
--- NOTE | 2021-02-01 13:43 | DI.RAD_ITS ---
Exam(s) XR PORTABLE CHEST AP EXAM: XR PORTABLE CHEST AP CLINICAL HISTORY: nausea,chills. TECHNIQUE: 2D digital imaging was performed. COMPARISON: Prior chest x-ray September 2017 FINDINGS: Heart size is normal. The mediastinum is not widened. Lungs are clear. No infiltrates nor obvious pleural effusions. IMPRESSION: No acute pulmonary findings on this single AP portable view of the chest. DATA REPOSITORY: RADIATION DOSE DELIVERED: All CT scans at this facility use at least one of these dose optimization techniques: automated exposure control; mA and/or kV adjustment per patient size (includes targeted e xams where dose is matched to clinical indication); or iterative reconstruction.
[2021-02-01 13:48] LABS: COVID-19 PCR Negative (Negative)
--- NOTE | 2021-02-01 14:09 | DI.VRAD_ITS ---
PROCEDURE INFORMATION: Exam: XR Chest Exam date and time: 02/01/2021 12:39 PM Age: 55 years old Clinical indication: Shortness of breath; Patient HX: SOB, chest pain TECHNIQUE: Imaging protocol: XR of the chest. Views: 1 view. COMPARISON: CR CHEST 2 VIEWS PA,LAT 10/12/2017 4:37 PM FINDINGS: Lungs: Unremarkable. No consolidation. Pleural spaces: Unremarkable. No pleural effusion. No pneumothorax. Heart/Mediastinum: Unremarkable. No cardiomegaly. Bones/joints: Chronic degenerative changes of the spine are present. IMPRESSION: No acute findings. Dictated and Authenticated by: Manohar Alex MD. Ordering:LISANDRO Polk MD
[2021-02-01 14:20] LABS: Bilirubin Negative (Negative); Blood Moderate (Negative); Clarity Clear (Clear); Glucose 500 mg/dL (Negative); Ketones Negative (Negative); Leukocyte Esterase Negative (Negative); Nitrite Positive (Negative); Urobilinogen 0.2 EU/dL (Up TO 0.2)
[2021-02-01] MEDS: Ondansetron 4 MG/2 ML VIAL IVP ×2 (14:20→18:46)
[2021-02-01 14:29] LABS: *AMPHETAMINES SCREEN URINE Negative (Negative); *BARBITURATES SCREEN URINE Negative (Negative); *BENZODIAZEPINES SCREEN URINE Negative (Negative); Cannabinoids THC Negative (Negative); Cocaine Screen,Urine Negative (Negative); METHADONE URINE SCREEN Negative (Negative); OPIATES URINE SCREEN Negative (Negative)
[2021-02-01 14:30] LABS: Tricyclic Antidepressants Negative (Negative)
[2021-02-01 14:31] LABS: Bacteria Many HPF (Negative); C & S Indicated? Yes; Casts Negative LPF (Negative); Crystals Negative HPF (Negative); Epithelial Cells Few HPF (Negative); Mucus Negative (Negative)
--- NOTE | 2021-02-01 14:39 | W.ED.GENAD ---
Discharge Plan Disposition Patient Disposition: STILL A PATIENT Condition: Stable Discharge Details Clinical Impression: Acute UTI, Nausea Admit Date/Time: 02/01/21 18:34 Admit Provider: Zeenat Rodríguez Attending Provider: Zeenat Rodríguez Primary Care Provider: Silke Lyon ED Provider: Mali Beckham Discharge Data Discharge Date/Time-TO BE ENTERED AT DEPARTURE: 02/01/21 19:40 Medical Decision Making <EDILSON Roberto - Last Filed: 02/02/21 08:08> This is a 55-year-old gentleman, multiple comorbidities, presenting for what he describes as his second episode of epigastric sensation, bloating, fullness. Yesterday developed general fatigue and what he describes as chills. Denies any focal infectious symptoms. He presents with a blood pressure of 109/43, pulse in triage of 102 but during my examination was in the 90s. He initially walked to exam room 1 and was tachypneic at 32 but at rest his respirations were 24, he is afebrile, O2 sat 97% on room air. Given his vague complaints, multiple comorbidities, will initiate cardiac work-up. Patient is agreeable to this plan. Initial laboratory values reveal a white blood cell count of mild nonspecific leukocytosis 11.45 hemoglobin 9.9 hematocrit 30.0. Anemia is trending downward when compared to his most recent laboratory values, denies any black tarry stools or bright red blood in his stools. INR 1.1 D-dimer 527 however when age-adjusted, his normal is 530. Sodium 133, potassium 5.3. He is receiving IV fluid and his EKG was not consistent with hyperkalemia. Creatinine of 1.8, BUN 39, GFR 39.67 which appears to be near his baseline. Glucose 144. Anion gap 9.6. No signs of DKA. Magnesium 1.8 LFTs unremarkable. Troponin less than 0.05. Patient is agreeable to obtaining repeat troponin and EKG. Urinalysis positive nitrate, 10-20 white cells and red cells. Will give 1 g IV Rocephin, culture pending Upon reevaluation patient reports that he continues to feel the sensation in his epigastric region. We discussed giving him Zofran to see if his symptoms are consistent with nausea as well as p.o. challenging him Upon reassessment he reports that his symptoms are much improved, he is tolerating p.o. intake without difficulty Patient does not appear septic or toxic. Covid negative. Medical Records Medical records reviewed: Yes I reviewed the patient's medical records. Imaging Data Radiologic Study: Attestation: I personally reviewed and interpreted this imaging study as follows: Imaging: X-Ray Radiologist's impression: Chest x-ray negative per radiology Lab Data Lab results reviewed: Yes I reviewed the patient's lab results. Labs: 02/01/21 14:02 Urine - Reflex from Ua Urine Culture - Pending Laboratory Tests Range/Units 02/01/21 02/01/21 02/01/21 12:43 12:43 12:43 WBC (4.4-10.8) 10^3/uL 11.45 H RBC (4.36-5.78) 10^6/uL 3.18 L Hgb (13.5-17.5) g/dL 9.9 L Hct (40.0-50.0) % 30.0 L MCV (80-95) fL 94.3 MCH (27.0-33.0) pg 31.1 MCHC (32.0-36.0) % 33.0 RDW (11.8-14.1) % 12.2 Plt Count (130-400) 10^3/uL 193 MPV (8.0-11.0) fL 8.8 Immature Gran % 0.5 Neutrophils % 79.7 Lymphocytes % 8.0 Monocytes % 11.4 Eosinophils % 0.2 Basophils % 0.2 Nucleated RBC % % 0 Absolute Neutrophils (1.2-6.7) 10^3/uL 9.13 H Absolute Lymphocytes (1.2-3.4) 10^3/uL 0.92 L Absolute Monocytes (0.1-0.8) 10^3/uL 1.31 H Absolute Eosinophils (0.0-0.7) 10^3/uL 0.02 Absolute Basophils (0.0-0.2) 10^3/uL 0.02 PT (9.3-11.0) sec 11.3 H INR (0.9-1.1) 1.1 APTT (21.0-27.5) sec 31.9 H D-Dimer (<500) ng/mlFEU Sodium (136-145) mmol/L 133 L Potassium (3.5-5.1) mmol/L 5.3 H Chloride (98-107) mmol/L 99 Carbon Dioxide (21.0-32.0) mmol/L 24.4 Anion Gap (3-11) mmol/L 9.6 BUN (7-18) mg/dL 39 H Creatinine (0.70-1.30) mg/dL 1.8 H Estimated GFR/1.73 m2 (mL/min/1.73m2) 39.67 Glucose (74-106) mg/dL 144 H Calcium (8.5-10.1) mg/dL 8.8 Magnesium (1.8-2.4) mg/dL 1.8 Total Bilirubin (0.2-1.0) mg/dL 0.6 AST (15-37) U/L 15 ALT (16-63) U/L 28 Alkaline Phosphatase (46-116) U/L 90 Troponin I (<0.06) ng/mL < 0.05 Total Protein (6.4-8.2) g/dL 7.7 Albumin (3.4-5.0) g/dL 2.9 L Urine Color (Yellow) Urine Clarity (Clear) Urine pH (5-8) Ur Specific [place] (1.005-1.025) Urine Protein (Negative) mg/dL Urine Ketones (Negative) mg/dL Urine Blood (Negative) Urine Nitrite (Negative) Urine Bilirubin (Negative) Urine Urobilinogen (Up TO 0.2) EU/dL Ur Leukocyte Esterase (Negative) Urine RBC (0-2) HPF Urine WBC (0-5) HPF Ur Epithelial Cells (Negative) HPF Urine Crystals (Negative) HPF Urine Bacteria (Negative) HPF Urine Casts (Negative) LPF Urine Mucus (Negative) Ur Culture Indicated? Urine Glucose (Negative) mg/dL Urine Opiates Screen (Negative) Urine Methadone Screen (Negative) Ur Barbiturates Screen (Negative) Ur Tricyclics Screen (Negative) Ur Amphetamines Screen (Negative) U Benzodiazepines Scrn (Negative) Urine Cocaine Screen (Negative) Ur THC Screen (Negative) COVID-19 Source SARS-CoV-2 (PCR) (Negative) Range/Units 02/01/21 02/01/21 02/01/21 12:43 12:59 14:02 WBC (4.4-10.8) 10^3/uL RBC (4.36-5.78) 10^6/uL Hgb (13.5-17.5) g/dL Hct (40.0-50.0) % MCV (80-95) fL MCH (27.0-33.0) pg MCHC (32.0-36.0) % RDW (11.8-14.1) % Plt Count (130-400) 10^3/uL MPV (8.0-11.0) fL Immature Gran % Neutrophils % Lymphocytes % Monocytes % Eosinophils % Basophils % Nucleated RBC % % Absolute Neutrophils (1.2-6.7) 10^3/uL Absolute Lymphocytes (1.2-3.4) 10^3/uL Absolute Monocytes (0.1-0.8) 10^3/uL Absolute Eosinophils (0.0-0.7) 10^3/uL Absolute Basophils (0.0-0.2) 10^3/uL PT (9.3-11.0) sec INR (0.9-1.1) APTT (21.0-27.5) sec D-Dimer (<500) ng/mlFEU 527 H Sodium (136-145) mmol/L Potassium (3.5-5.1) mmol/L Chloride (98-107) mmol/L Carbon Dioxide (21.0-32.0) mmol/L Anion Gap (3-11) mmol/L BUN (7-18) mg/dL Creatinine (0.70-1.30) mg/dL Estimated GFR/1.73 m2 (mL/min/1.73m2) Glucose (74-106) mg/dL Calcium (8.5-10.1) mg/dL Magnesium (1.8-2.4) mg/dL Total Bilirubin (0.2-1.0) mg/dL AST (15-37) U/L ALT (16-63) U/L Alkaline Phosphatase (46-116) U/L Troponin I (<0.06) ng/mL Total Protein (6.4-8.2) g/dL Albumin (3.4-5.0) g/dL Urine Color (Yellow) Urine Clarity (Clear) Urine pH (5-8) Ur Specific [place] (1.005-1.025) Urine Protein (Negative) mg/dL Urine Ketones (Negative) mg/dL Urine Blood (Negative) Urine Nitrite (Negative) Urine Bilirubin (Negative) Urine Urobilinogen (Up TO 0.2) EU/dL Ur Leukocyte Esterase (Negative) Urine RBC (0-2) HPF Urine WBC (0-5) HPF Ur Epithelial Cells (Negative) HPF Urine Crystals (Negative) HPF Urine Bacteria (Negative) HPF Urine Casts (Negative) LPF Urine Mucus (Negative) Ur Culture Indicated? Urine Glucose (Negative) mg/dL Urine Opiates Screen (Negative) Negative Urine Methadone Screen (Negative) Negative Ur Barbiturates Screen (Negative) Negative Ur Tricyclics Screen (Negative) Negative Ur Amphetamines Screen (Negative) Negative U Benzodiazepines Scrn (Negative) Negative Urine Cocaine Screen (Negative) Negative Ur THC Screen (Negative) Negative COVID-19 Source Nasal/nares SARS-CoV-2 (PCR) (Negative) Negative Range/Units 02/01/21 14:02 WBC (4.4-10.8) 10^3/uL RBC (4.36-5.78) 10^6/uL Hgb (13.5-17.5) g/dL Hct (40.0-50.0) % MCV (80-95) fL MCH (27.0-33.0) pg MCHC (32.0-36.0) % RDW (11.8-14.1) % Plt Count (130-400) 10^3/uL MPV (8.0-11.0) fL Immature Gran % Neutrophils % Lymphocytes % Monocytes % Eosinophils % Basophils % Nucleated RBC % % Absolute Neutrophils (1.2-6.7) 10^3/uL Absolute Lymphocytes (1.2-3.4) 10^3/uL Absolute Monocytes (0.1-0.8) 10^3/uL Absolute Eosinophils (0.0-0.7) 10^3/uL Absolute Basophils (0.0-0.2) 10^3/uL PT (9.3-11.0) sec INR (0.9-1.1) APTT (21.0-27.5) sec D-Dimer (<500) ng/mlFEU Sodium (136-145) mmol/L Potassium (3.5-5.1) mmol/L Chloride (98-107) mmol/L Carbon Dioxide (21.0-32.0) mmol/L Anion Gap (3-11) mmol/L BUN (7-18) mg/dL Creatinine (0.70-1.30) mg/dL Estimated GFR/1.73 m2 (mL/min/1.73m2) Glucose (74-106) mg/dL Calcium (8.5-10.1) mg/dL Magnesium (1.8-2.4) mg/dL Total Bilirubin (0.2-1.0) mg/dL AST (15-37) U/L ALT (16-63) U/L Alkaline Phosphatase (46-116) U/L Troponin I (<0.06) ng/mL Total Protein (6.4-8.2) g/dL Albumin (3.4-5.0) g/dL Urine Color (Yellow) Yellow Urine Clarity (Clear) Clear Urine pH (5-8) 6.0 Ur Specific [place] (1.005-1.025) 1.020 Urine Protein (Negative) mg/dL >=300 H Urine Ketones (Negative) mg/dL Negative Urine Blood (Negative) Moderate H Urine Nitrite (Negative) Positive H Urine Bilirubin (Negative) Negative Urine Urobilinogen (Up TO 0.2) EU/dL 0.2 Ur Leukocyte Esterase (Negative) Negative Urine RBC (0-2) HPF 10-20 H Urine WBC (0-5) HPF 10-20 H Ur Epithelial Cells (Negative) HPF Few Urine Crystals (Negative) HPF Negative Urine Bacteria (Negative) HPF Many Urine Casts (Negative) LPF Negative Urine Mucus (Negative) Negative Ur Culture Indicated? Yes Urine Glucose (Negative) mg/dL 500 H Urine Opiates Screen (Negative) Urine Methadone Screen (Negative) Ur Barbiturates Screen (Negative) Ur Tricyclics Screen (Negative) Ur Amphetamines Screen (Negative) U Benzodiazepines Scrn (Negative) Urine Cocaine Screen (Negative) Ur THC Screen (Negative) COVID-19 Source SARS-CoV-2 (PCR) (Negative) ECG Data Attestation: I personally reviewed and interpreted this ECG (s) as follows: Interpretation: Please see official report by Dr. Soliz. Sinus rhythm, ventricular of 99. Nonspecific ST abnormalities, probable normal early repolarization pattern. No STEMI. <EDILSON Conteh - Last Filed: 02/01/21 18:56> Patient was signed out to me from Jam Sanchez PA-C, did evaluate the patient he had a temp of 102, will admit him for pyelonephritis as he has CT evidence of cystitis and pyelonephritis as well We will perform bladder scan Patient was given ceftriaxone prior to my evaluation of patient and he will have blood cultures although some several hours after receiving ceftriaxone, his lactate was negative but he meets sepsis criteria in terms of vitals and source given his comorbidities including chronic kidney disease, diabetes, I think this patient would benefit from overnight admission CT reviewed by me, [facility] interpretation reviewed where available Urine sent for culture 2 troponins negative for acute abnormality, found to be hyperkalemic, 5.3, no EKG findings consistent with this, no current chest pain or shortness of breath D-dimer found to be slightly elevated however using age-adjusted D-dimer and patient's lack findings consistent with pulmonary embolism including clinically no shortness of breath or chest pain, I do not think CTA is necessary at this point Case was discussed with Dr. Rodríguez who will admit patient to the hospitalist service at this time Differential Diagnosis Differential Diagnosis: Appendicitis, angina, diabetic ketoacidosis, pyelonephritis HPI <EDILSON Roberto - Last Filed: 02/02/21 08:08> General Mode of arrival: ambulatory. Date/Time Provider Initiated Documentation: 02/01/21 12:22. Limitations to Documentation: no limitations. Information obtained by: patient. HPI Narrative: This is a 55-year-old gentleman, past medical history that includes diastolic heart failure, gout, hyperlipidemia, hypertension, type 2 diabetes, morbid obesity, sleep apnea, who unfortunately is a very vague and poor historian. Patient reports that 2 weeks ago he developed a sensation in his epigastric region that he describes as a fullness, bloating, slightly nauseous. It resolved on its own after couple days and he never sought any treatment. He states that it returned 2 days ago, seem to be worse yesterday while at work, and tells me that he developed general fatigue and chills. He never had a fever. Patient states that he is still moving his bowels, and denies any vomiting. He denies recent illness or trauma. Denies any headache, fever, visual changes, neck pain, chest pain, shortness of breath, back pain, dysuria, diarrhea, numbness, tingling, weakness, worsening swelling of his legs, skin rash. He reports that he is able to eat but does not really want to, he is fearful if he eats it will not go down. Related Data Home Medications Medication Instructions Recorded Confirmed allopurinol 200 mg PO BID 06/09/13 02/01/21 aspirin 162 mg PO DAILY 06/09/13 02/01/21 chlorthalidone 50 mg PO DAILY 06/09/13 02/01/21 lisinopril 40 mg PO DAILY 06/09/13 02/01/21 metformin [Glucophage] 1,000 mg PO BID 06/09/13 02/01/21 Invokana 300 mg PO DAILY AM 08/14/16 02/01/21 Tresiba FlexTouch U-200 90 units SUB-Q DAILY 10/12/17 02/01/21 atorvastatin [Lipitor] 40 mg PO DAILY 10/12/17 02/01/21 indomethacin 50 mg PO TID PRN 10/12/17 02/01/21 labetalol 100 mg PO BID 10/12/17 02/01/21 cholecalciferol (vitamin D3) 25 1,000 unit PO DAILY 10/10/18 02/01/21 mcg (1,000 unit) capsule insulin regular human 100 unit/mL 40 unit SUB-Q TID ml 10/10/18 02/01/21 injection solution Novolin N NPH U-100 Insulin 70 units SUBCUT HS 10/27/18 02/01/21 dulaglutide 1.5 mg/0.5 mL 1.5 mg SC QWEEK 03/27/19 02/01/21 subcutaneous pen injector mupirocin 1 applic TP TID #15 gm 09/24/19 02/01/21 Previous Rx's Medication Instructions Recorded mupirocin 1 applic TP TID #15 gm 09/24/19 Allergies Allergy/AdvReac Type Severity Reaction Status Date / Time No Known Allergies Allergy Unverified 02/01/21 12:38 General Stated Complaint: GenMedical NOEMI: 2 Review of Systems <EDILSON Roberto - Last Filed: 02/02/21 08:08> Constitutional Constitutional: Reports fatigue, Denies fever(s) and Denies weakness Eyes Eyes: Denies change in vision ENT Ears, Nose, Mouth, and Throat: Denies neck pain Cardiovascular Cardiovascular: Denies chest pain and Denies dyspnea Respiratory Respiratory: Denies cough and Denies dyspnea Gastrointestinal Gastrointestinal: Denies abdominal pain, Denies melena, Denies hematochezia, Reports nausea and Denies vomiting Genitourinary Genitourinary: Denies dysuria Musculoskeletal Musculoskeletal: Denies back pain, Denies neck pain, Denies numbness and Denies tingling Integumentary/Breasts Skin/Breast: Denies rash Neurologic Neurologic: Denies numbness, Denies tingling and Denies weakness Endocrine Endocrine: Reports fatigue Hematologic/Lymphatic Hematologic/Lymphatic: Denies easy bleeding and Denies easy bruising PFSH <EDILSON Roberto - Last Filed: 02/02/21 08:08> Medical History (Updated 02/01/21 @ 23:37 by Zeenat Rodríguez MD) CKD (chronic kidney disease) stage 3, GFR 30-59 ml/min Diastolic heart failure Glaucoma, bilateral Gout Hyperlipidemia Hypertension Insulin dependent type 2 diabetes mellitus Joint stiffness Morbid obesity Obstructive sleep apnea noncompliant with CPAP; sleep study at [facility] [place] Proteinuria Retinal detachment, left Retinal lattice degeneration Surgical History (Updated 02/01/21 @ 23:37 by Zeenat Rodríguez MD) H/O eye surgery Left retinal detachment S/P colonoscopy (~10/31/18) Social History Smoking/Tobacco Use Status: Never Smoking risk assessment performed?: Yes Alcohol Intake: never Drug use: Never Current gender identity: male Do you feel safe at home: Yes Do you feel safe in your relationship?: Yes Exam <EDILSON Roberto - Last Filed: 02/02/21 08:08> Const General: cooperative, healthy appearing, comfortable and no acute distress Orientation: alert, awake and oriented x3 HENMT Head: normal to inspection, normocephalic and atraumatic Face and sinus: normal facial exam Mouth: moist mucous membranes Throat: posterior oropharynx normal Eyes General: appearance normal, both eyes and all related structures Conjunctivae: conjunctivae normal Neck Neck: normal visual inspection, full ROM, trachea midline, supple and nontender Resp Effort & Inspection: normal respiratory effort and able to speak in complete sentences Auscultation: clear to auscultation bilaterally Cardio Rate: regular rate Rhythm: regular rhythm GI Inspection: normal to inspection and obesity Palpation: soft, not firm, no guarding, no pulsatile masses and nontender Auscultation: normal bowel sounds Back/Spine/Pelvis Back: No back tenderness Skin General skin exam: no rashes or lesions noted Neuro General: patient alert, patient awake, moves all extremities and no focal motor deficits Cognition: normal cognition Speech: speech normal Gait: normal gait Motor: muscle tone normal throughout Sensory Exam: no sensory deficits noted Extrem General: full ROM, capillary refill normal, no calf tenderness and pedal edema bilaterally pitting and 3+ Psych Appearance: grossly normal Mental Status: mental status grossly normal Course <EDILSON Roberto - Last Filed: 02/02/21 08:08> Vital Signs Vital signs: Vital Signs Temperature 37.3 C 02/01/21 12:31 Pulse 102 H 02/01/21 12:31 Respiratory Rate 32 H 02/01/21 12:31 Blood Pressure 109/43 L 02/01/21 12:31 Pulse Oximetry 97 02/01/21 12:31 Temperature 37.3 C 02/01/21 12:31 Temperature Source Temporal Artery Scan 02/01/21 12:31 Pulse 98 H 02/01/21 14:10 Pulse 99 H 02/01/21 14:10 Respiratory Rate 32 H 02/01/21 13:01 Respiratory Effort 02/01/21 14:25 Respiratory Depth Normal 02/01/21 14:25 Respiratory Pattern Normal 02/01/21 12:47 Blood Pressure 122/49 L 02/01/21 14:10 Blood Pressure Mean 67 02/01/21 14:10 Blood Pressure Position Supine 02/01/21 12:31 Pulse Oximetry 96 02/01/21 14:10 Oxygen Delivery Method Room Air 02/01/21 12:31 Oxygen Flow Rate 0 02/01/21 12:31 Pain Level 0 02/01/21 12:31 Lab/Test Results Lab/Test Results: 02/01/21 14:02 Urine - Reflex from Ua Urine Culture - Pending Laboratory Tests Range/Units 02/01/21 02/01/21 02/01/21 12:43 12:43 12:43 WBC (4.4-10.8) 10^3/uL 11.45 H RBC (4.36-5.78) 10^6/uL 3.18 L Hgb (13.5-17.5) g/dL 9.9 L Hct (40.0-50.0) % 30.0 L MCV (80-95) fL 94.3 MCH (27.0-33.0) pg 31.1 MCHC (32.0-36.0) % 33.0 RDW (11.8-14.1) % 12.2 Plt Count (130-400) 10^3/uL 193 MPV (8.0-11.0) fL 8.8 Immature Gran % 0.5 Neutrophils % 79.7 Lymphocytes % 8.0 Monocytes % 11.4 Eosinophils % 0.2 Basophils % 0.2 Nucleated RBC % % 0 Absolute Neutrophils (1.2-6.7) 10^3/uL 9.13 H Absolute Lymphocytes (1.2-3.4) 10^3/uL 0.92 L Absolute Monocytes (0.1-0.8) 10^3/uL 1.31 H Absolute Eosinophils (0.0-0.7) 10^3/uL 0.02 Absolute Basophils (0.0-0.2) 10^3/uL 0.02 PT (9.3-11.0) sec 11.3 H INR (0.9-1.1) 1.1 APTT (21.0-27.5) sec 31.9 H D-Dimer (<500) ng/mlFEU Sodium (136-145) mmol/L 133 L Potassium (3.5-5.1) mmol/L 5.3 H Chloride (98-107) mmol/L 99 Carbon Dioxide (21.0-32.0) mmol/L 24.4 Anion Gap (3-11) mmol/L 9.6 BUN (7-18) mg/dL 39 H Creatinine (0.70-1.30) mg/dL 1.8 H Estimated GFR/1.73 m2 (mL/min/1.73m2) 39.67 Glucose (74-106) mg/dL 144 H Calcium (8.5-10.1) mg/dL 8.8 Magnesium (1.8-2.4) mg/dL 1.8 Total Bilirubin (0.2-1.0) mg/dL 0.6 AST (15-37) U/L 15 ALT (16-63) U/L 28 Alkaline Phosphatase (46-116) U/L 90 Troponin I (<0.06) ng/mL < 0.05 Total Protein (6.4-8.2) g/dL 7.7 Albumin (3.4-5.0) g/dL 2.9 L Urine Color (Yellow) Urine Clarity (Clear) Urine pH (5-8) Ur Specific [place] (1.005-1.025) Urine Protein (Negative) mg/dL Urine Ketones (Negative) mg/dL Urine Blood (Negative) Urine Nitrite (Negative) Urine Bilirubin (Negative) Urine Urobilinogen (Up TO 0.2) EU/dL Ur Leukocyte Esterase (Negative) Urine RBC (0-2) HPF Urine WBC (0-5) HPF Ur Epithelial Cells (Negative) HPF Urine Crystals (Negative) HPF Urine Bacteria (Negative) HPF Urine Casts (Negative) LPF Urine Mucus (Negative) Ur Culture Indicated? Urine Glucose (Negative) mg/dL Urine Opiates Screen (Negative) Urine Methadone Screen (Negative) Ur Barbiturates Screen (Negative) Ur Tricyclics Screen (Negative) Ur Amphetamines Screen (Negative) U Benzodiazepines Scrn (Negative) Urine Cocaine Screen (Negative) Ur THC Screen (Negative) COVID-19 Source SARS-CoV-2 (PCR) (Negative) Range/Units 02/01/21 02/01/21 02/01/21 12:43 12:59 14:02 WBC (4.4-10.8) 10^3/uL RBC (4.36-5.78) 10^6/uL Hgb (13.5-17.5) g/dL Hct (40.0-50.0) % MCV (80-95) fL MCH (27.0-33.0) pg MCHC (32.0-36.0) % RDW (11.8-14.1) % Plt Count (130-400) 10^3/uL MPV (8.0-11.0) fL Immature Gran % Neutrophils % Lymphocytes % Monocytes % Eosinophils % Basophils % Nucleated RBC % % Absolute Neutrophils (1.2-6.7) 10^3/uL Absolute Lymphocytes (1.2-3.4) 10^3/uL Absolute Monocytes (0.1-0.8) 10^3/uL Absolute Eosinophils (0.0-0.7) 10^3/uL Absolute Basophils (0.0-0.2) 10^3/uL PT (9.3-11.0) sec INR (0.9-1.1) APTT (21.0-27.5) sec D-Dimer (<500) ng/mlFEU 527 H Sodium (136-145) mmol/L Potassium (3.5-5.1) mmol/L Chloride (98-107) mmol/L Carbon Dioxide (21.0-32.0) mmol/L Anion Gap (3-11) mmol/L BUN (7-18) mg/dL Creatinine (0.70-1.30) mg/dL Estimated GFR/1.73 m2 (mL/min/1.73m2) Glucose (74-106) mg/dL Calcium (8.5-10.1) mg/dL Magnesium (1.8-2.4) mg/dL Total Bilirubin (0.2-1.0) mg/dL AST (15-37) U/L ALT (16-63) U/L Alkaline Phosphatase (46-116) U/L Troponin I (<0.06) ng/mL Total Protein (6.4-8.2) g/dL Albumin (3.4-5.0) g/dL Urine Color (Yellow) Urine Clarity (Clear) Urine pH (5-8) Ur Specific [place] (1.005-1.025) Urine Protein (Negative) mg/dL Urine Ketones (Negative) mg/dL Urine Blood (Negative) Urine Nitrite (Negative) Urine Bilirubin (Negative) Urine Urobilinogen (Up TO 0.2) EU/dL Ur Leukocyte Esterase (Negative) Urine RBC (0-2) HPF Urine WBC (0-5) HPF Ur Epithelial Cells (Negative) HPF Urine Crystals (Negative) HPF Urine Bacteria (Negative) HPF Urine Casts (Negative) LPF Urine Mucus (Negative) Ur Culture Indicated? Urine Glucose (Negative) mg/dL Urine Opiates Screen (Negative) Negative Urine Methadone Screen (Negative) Negative Ur Barbiturates Screen (Negative) Negative Ur Tricyclics Screen (Negative) Negative Ur Amphetamines Screen (Negative) Negative U Benzodiazepines Scrn (Negative) Negative Urine Cocaine Screen (Negative) Negative Ur THC Screen (Negative) Negative COVID-19 Source Nasal/nares SARS-CoV-2 (PCR) (Negative) Negative Range/Units 05/15/21 14:02 WBC (4.4-10.8) 10^3/uL RBC (4.36-5.78) 10^6/uL Hgb (13.5-17.5) g/dL Hct (40.0-50.0) % MCV (80-95) fL MCH (27.0-33.0) pg MCHC (32.0-36.0) % RDW (11.8-14.1) % Plt Count (130-400) 10^3/uL MPV (8.0-11.0) fL Immature Gran % Neutrophils % Lymphocytes % Monocytes % Eosinophils % Basophils % Nucleated RBC % % Absolute Neutrophils (1.2-6.7) 10^3/uL Absolute Lymphocytes (1.2-3.4) 10^3/uL Absolute Monocytes (0.1-0.8) 10^3/uL Absolute Eosinophils (0.0-0.7) 10^3/uL Absolute Basophils (0.0-0.2) 10^3/uL PT (9.3-11.0) sec INR (0.9-1.1) APTT (21.0-27.5) sec D-Dimer (<500) ng/mlFEU Sodium (136-145) mmol/L Potassium (3.5-5.1) mmol/L Chloride (98-107) mmol/L Carbon Dioxide (21.0-32.0) mmol/L Anion Gap (3-11) mmol/L BUN (7-18) mg/dL Creatinine (0.70-1.30) mg/dL Estimated GFR/1.73 m2 (mL/min/1.73m2) Glucose (74-106) mg/dL Calcium (8.5-10.1) mg/dL Magnesium (1.8-2.4) mg/dL Total Bilirubin (0.2-1.0) mg/dL AST (15-37) U/L ALT (16-63) U/L Alkaline Phosphatase (46-116) U/L Troponin I (<0.06) ng/mL Total Protein (6.4-8.2) g/dL Albumin (3.4-5.0) g/dL Urine Color (Yellow) Yellow Urine Clarity (Clear) Clear Urine pH (5-8) 6.0 Ur Specific [place] (1.005-1.025) 1.020 Urine Protein (Negative) mg/dL >=300 H Urine Ketones (Negative) mg/dL Negative Urine Blood (Negative) Moderate H Urine Nitrite (Negative) Positive H Urine Bilirubin (Negative) Negative Urine Urobilinogen (Up TO 0.2) EU/dL 0.2 Ur Leukocyte Esterase (Negative) Negative Urine RBC (0-2) HPF 10-20 H Urine WBC (0-5) HPF 10-20 H Ur Epithelial Cells (Negative) HPF Few Urine Crystals (Negative) HPF Negative Urine Bacteria (Negative) HPF Many Urine Casts (Negative) LPF Negative Urine Mucus (Negative) Negative Ur Culture Indicated? Yes Urine Glucose (Negative) mg/dL 500 H Urine Opiates Screen (Negative) Urine Methadone Screen (Negative) Ur Barbiturates Screen (Negative) Ur Tricyclics Screen (Negative) Ur Amphetamines Screen (Negative) U Benzodiazepines Scrn (Negative) Urine Cocaine Screen (Negative) Ur THC Screen (Negative) COVID-19 Source SARS-CoV-2 (PCR) (Negative) Sign Out <EDILSON Roberto - Last Filed: 02/02/21 08:08> Sign Out Data: Sign Out Comment: Presents for nausea, general fatigue, subjective chills yesterday. Cardiac work-up negative thus far. Awaiting repeat troponin and EKG. Urinalysis consistent with UTI, given 1 g IV Rocephin. Patient was given IV Zofran and p.o. challenge. Reports that his epigastric symptoms have greatly improved. Last updated by Jam Sanchez PA at 02/01/21 15:07
[2021-02-01] MEDS: cefTRIAXone 1 GM/50 ML BAG IVPB ×2 (14:48→22:01)
--- NOTE | 2021-02-01 15:45 | RT.EKG_ITS ---
APPROVED REPORT Exam: Resting ECG Reason for Exam: nausea Patient Location: E HR:95 bpm ECG Measurements Heart Rate [address] 187 P 50 QRSd 97 QRS 7 QT 323 T 34 QTc 408 Conclusion Sinus rhythm...normal P axis, V-rate 60- 99 ST elev, probable normal early repol pattern...ST elevation, age<55
--- NOTE | 2021-02-01 16:15 | DI.CT_ITS ---
Exam(s) CT ABDOMEN PELVIS WO EXAM: CT ABDOMEN PELVIS WO CLINICAL HISTORY: abdominal pain, sepsis, uti, elevated creatinine. TECHNIQUE: Imaging Protocol: Axial computed tomography images with coronal and sagittal reformatted images were created and reviewed CONTRAST MATERIAL: Intravenous: none Oral: None COMPARISON: No exams were available for comparison FINDINGS: VISUALIZED LUNG BASES: No nodules nor pleural effusions evident. ABDOMEN: There is no ascites. LIVER: There is slightly prominent in size. There is no obvious hepatic mass evident on this noninfu sed study. GALLBLADDER/BILIARY: Multiple small calculi are seen within the gallbladder lumen. There is no gallb ladder wall edema nor pericholecystic fluid. CBD is not dilated. PANCREAS: No evidence of pancreatic mass nor dilatation of the pancreatic duct. SPLEEN: Spleen size upper normal. ADRENALS: There is a 2 centimeter nodule at the genu of the right adrenal gland. The left adrenal gl and is unremarkable. KIDNEYS:There is a 1.8 x 1.6 cm exophytic cyst the lower pole level of the right kidney. There is al so a 1.1 x 1.1 cm probable cyst off the superior pole the right kidney. There is a tiny 1 millimeter nonobstructive calculus in the right kidney. No hydronephrosis nor hydroureter on either side. The re is some perinephric streaking bilaterally but more so around the right kidney. Possibly related t o infection. There is no obvious hydronephrosis.. ABDOMINAL AORTA: Abdominal aorta is not enlarged. LYMPH NODES: There is no retroperitoneal nor paraaortic adenopathy. ABDOMINAL WALL: No evidence of anterior abdominal hernia but there is relatively symmetrical thickeni ng of the skin and subcutaneous tissues over both sides of the abdomen without a drainable fluid onesimo ection. Correlation with clinical findings recommended. Probable cellulitis. No findings at the le althea of the umbilicus and subumbilical region of the anterior abdominal wall. GI: There is no evidence of bowel obstruction, free air, nor abscess. PELVIS: LYMPH NODES: There is no intrapelvic nor inguinal adenopathy. GI: No evidence of appendicitis.No evidence of sigmoid diverticulitis. URINARY BLADDER: Uniform thickening of the bladder wall, possibly related to under distention or cyst itis. REPRODUCTIVE: Prostate gland is not enlarged. OSSEOUS: No significant osseous lesions. IMPRESSION: 1. In addition to small cyst in the right kidney there is perinephric streaking-edema around the righ t kidney which may be related to infectious etiology such as pyelonephritis. However, cannot exclude the possibility that this is related to renal vein thrombosis which is difficult to visualize becaus e there was no IV contrast here. 2. Cholelithiasis. No obvious acute cholecystitis. Gallbladder is not distended nor edematous. The biliary tree is not dilated. 3. There is relatively symmetrical abnormal symmetrical thickening of the skin and subcutaneous fat o henrik both sides of the abdomen but without a drainable fluid collection. Probable infectious etiologi es such as cellulitis. Uniform thickening of the urinary bladder wall. This may be due to under distension but cannot rule out the possibility that this is related to cystitis. RADIATION DOSE DELIVERED: 2,290.37mGy.cm Total DLP DATA REPOSITORY: All CT scans at this facility are submitted to the National Radiology Data Registry (NRDR) Dose Index Registry (DIR) with the [employer] (ACR). RADIATION OPTIMIZATION: All CT scans at this facility use at least one of these dose optimization te chniques: automated exposure control; mA and/or kV adjustment per patient size (includes targeted exa ms where dose is matched to clinical indication); or iterative reconstruction.
[2021-02-01 16:28] LABS: Lactate 0.5 mmol/L (0.6-1.4)
[2021-02-01] MEDS: Acetaminophen 500 MG TAB 1000 MG PO (16:31)
[2021-02-01 16:33] LABS: Potassium 5.3 mmol/L (3.5-5.1)
[2021-02-01 16:36] LABS: Troponin I < 0.05 ng/mL (<0.06)
--- NOTE | 2021-02-01 17:10 | DI.VRAD_ITS ---
PROCEDURE INFORMATION: Exam: CT Abdomen And Pelvis Without Contrast Exam date and time: 02/01/2021 4:20 PM Age: 55 years old Clinical indication: Pain and abnormal findings; Abnormal lab test; Abnormal kidney function lab tests; Abdominal pain; Patient HX: Sepsis, TECHNIQUE: Imaging protocol: Computed tomography of the abdomen and pelvis without contrast. COMPARISON: No relevant prior studies available. FINDINGS: Liver: Normal. No mass. Gallbladder and bile ducts: Multiple gallstones are noted within the gallbladder. No gallbladder wall thickening or pericholecystic fluid is seen. Pancreas: Normal. No ductal dilation. Spleen: Normal. No splenomegaly. Adrenal glands: Normal. No mass. Kidneys and ureters: No hydronephrosis is noted. However, there is right perinephric edema especially adjacent to the inferior pole right kidney. There is a 1.8 cm diameter exophytic cyst arising from the lower pole right kidney with a density of -3 Hounsfield units. No nephrolithiasis is noted. The ureters do not appear dilated. Stomach and bowel: Diverticulosis of the colon is present. Appendix: The appendix is well-visualized and appears normal. Intraperitoneal space: Unremarkable. No free air. No significant fluid collection. Vasculature: Unremarkable. No abdominal aortic aneurysm. Lymph nodes: Unremarkable. No enlarged lymph nodes. Urinary bladder: The urinary bladder wall appears diffusely thickened. However, it is not well distended. Reproductive: Unremarkable as visualized. Bones/joints: Mild chronic degenerative change of the spine are present. Soft tissues: Unremarkable. IMPRESSION: 1. Cholelithiasis. 2. Right perinephric edema. This is a nonspecific finding but most commonly indicates pyelonephritis. Other causes such as venous thrombosis or neoplasm should be considered in the appropriate clinical circumstance. 3. Simple cyst of the lower pole right kidney. 4. Diverticulosis. 5. Thickened wall of the urinary bladder. This may be artifact due to lack of distention. However, cystitis or neoplasm cannot be excluded. Dictated and Authenticated by: Manohar Alex MD. Ordering:REINA Samson MD
[2021-02-01 20:15] LABS: C-Reactive Protein 13.39 mg/dL (0.0-0.3)
[2021-02-01] MEDS: Normal Saline Flush 10 ML SYR ×2 (21:58→22:01)
[2021-02-01] MEDS: Enoxaparin 30 MG/0.3 ML SYR SC (21:59)
[2021-02-01] MEDS: Pantoprazole 40 MG VIAL IVP (21:59)
[2021-02-01] MEDS: Normal Saline 1,000 ML 150 ML IV (22:00)
[2021-02-01 22:02] LABS: Procalcitonin 0.4 ng/mL
--- NOTE | 2021-02-01 22:02 | W.PM.HP.N ---
Date of service: 02/01/21 Time of Service: 22:02 Assessment and Plan Assessment and plan (1) Sepsis: Status: Acute Assessment and plan: Due to pyelonephritis, present on admission. While it is unusual to have pyelonephritis in absence of leucocyte esterase on UA, it is confirmed by imaging. I suspect that he does have urinary retention contributing to the complicated UTI. No surgical intervention indicated based on CT - no obstructive uropathy, 1 tiny stone. Continue IV ceftriaxone. Await blood and urine cx results. Continue IVF. (2) Pyelonephritis: Status: Acute Assessment and plan: As above (3) Nausea: Status: Acute Assessment and plan: Likely due to pyelonephritis. ?also component of gastroparesis. Provide antiemetics. Consider reglan. The patient is tolerating a diet - advance as tolerated. Decrease tonight's dose of insulin. (4) Insulin dependent type 2 diabetes mellitus: Status: Chronic Assessment and plan: As above- The patient did not take insulins as he was not eating. Will monitor sugars closely. Decrease doses of insulin. continue home insulins, but adjust tonight's NPH dose. (5) CKD (chronic kidney disease) stage 3, GFR 30-59 ml/min: Status: Chronic Assessment and plan: At baseline. Monitor Cr. (6) Obstructive sleep apnea: Status: Chronic Assessment and plan: Not compliant with CPAP because he ran out of supplies. States that the CPAP used to be through [facility]. States had a sleep study 8 years ago at [facility]. Agrees to wear a CPAP while here. (7) Hypertension: Status: Chronic Assessment and plan: Hold chlorthalidone in light of sepsis and patient needing IVF. Hold lisinopril due to hyperkalemia. (8) Hyperkalemia: Status: Acute Assessment and plan: As above - hold lisinopril. Low potassium diet. IVF. Recheck in am (9) DVT prophylaxis: Status: Acute Assessment and plan: SC lovenox (10) Discharge planning issues: Status: Acute Assessment and plan: Full code Obs Could benefit from a CGM/diabetes education Needs to have the CPAP supplies addressed. History of Present Illness History of Present Illness Chief Complaint: chills, fatigue, abdominal fullness Narrative: Mr Chung is a 55 year old male with PMHx of IDDM2, CHFpEF, hypertension, hyperlipidemia, obesity with BMI of 46.5, KEENA noncompliant with CPAP (states he does not have supplies for it; sleep study was done at [facility]) who presented to [facility] ED not feeling well since yesterday. Specifically, he endorses feeling tired, weak, having subjective fevers/chills, and a sensation of epigastric fullness, like something is stuck. He states he has barely eaten anything since yesterday, and because of that he had not taken any insulin today. His ED workup revealed evidence of pyelonephritis of both kidneys, though his UA was negative for leucocyte esterase. He was febrile and had a leucocytosis of 11.45, procalcitonin of 0.4. There was evidence of thickened bladder on the CT and urinary retention is being ruled out. The patient endorses nocturia, but denies dysuria/frequency/difficulty initiation the stream, feeling like he is not emptying his bladder, or back pain. There was a tiny nonobstructing calculus in the right kidney without evidence of obstructive uropathy on CT. He was initiated on empiric ceftriaxone and aggressive. Due to his overall ill appearance, hospitalist admission was requested. Patient is being placed in observation status. Review of Systems All systems reviewed & are unremarkable except as noted in HPI and below PFSH Medical History (Updated 02/01/21 @ 23:37 by Zeenat Rodríguez MD) CKD (chronic kidney disease) stage 3, GFR 30-59 ml/min Diastolic heart failure Glaucoma, bilateral Gout Hyperlipidemia Hypertension Insulin dependent type 2 diabetes mellitus Joint stiffness Morbid obesity Obstructive sleep apnea noncompliant with CPAP; sleep study at [facility] Proteinuria Retinal detachment, left Retinal lattice degeneration Surgical History (Updated 02/01/21 @ 23:37 by Zeenat Rodríguez MD) H/O eye surgery Left retinal detachment S/P colonoscopy (~10/31/18) Social History Smoking/Tobacco Use Status: Never Smoking risk assessment performed?: Yes Alcohol Intake: never Drug use: Never Current gender identity: male Do you feel safe at home: Yes Do you feel safe in your relationship?: Yes Meds Allergies and Home Medications Allergies Allergy/AdvReac Type Severity Reaction Status Date / Time No Known Allergies Allergy Unverified 02/01/21 12:38 Home Medications Medication Instructions Recorded Confirmed Type allopurinol 200 mg PO BID 06/09/13 02/01/21 History aspirin 162 mg PO DAILY 06/09/13 02/01/21 History chlorthalidone 50 mg PO DAILY 06/09/13 02/01/21 History lisinopril 40 mg PO DAILY 06/09/13 02/01/21 History metformin [Glucophage] 1,000 mg PO BID 06/09/13 02/01/21 History Invokana 300 mg PO DAILY AM 08/14/16 02/01/21 History Tresiba FlexTouch U-200 90 units SUB-Q DAILY 10/12/17 02/01/21 History atorvastatin [Lipitor] 40 mg PO DAILY 10/12/17 02/01/21 History indomethacin 50 mg PO TID PRN 10/12/17 02/01/21 History labetalol 100 mg PO BID 10/12/17 02/01/21 History cholecalciferol (vitamin D3) 25 1,000 unit PO DAILY 10/10/18 02/01/21 History mcg (1,000 unit) capsule insulin regular human 100 unit/mL 40 unit SUB-Q TID ml 10/10/18 02/01/21 History injection solution Novolin N NPH U-100 Insulin 70 units SUBCUT HS 10/27/18 02/01/21 History dulaglutide 1.5 mg/0.5 mL 1.5 mg SC QWEEK 03/27/19 02/01/21 History subcutaneous pen injector mupirocin 1 applic TP TID #15 gm 09/24/19 02/01/21 Rx Exam Narrative Exam Narrative: General: Very pleasant obese male who looks ill, A&Ox3, able to answer all questions Neurological: A&ox3, no focal deficits; preserved sensation in B feet Psychiatric: Appropriate speech pattern/content Skin: Acanthosis nigricans of the neck, ankles; B feet without lesions HEENT: Atraumatic, normocephalic, EOMI, dry MM, clear oropharynx, no submandibular or cervical lymphadenopathy, + goiter, no JVD Cardiovascular: RRR, no m/r/g, tachycardic Lungs: CTAB Gastrointestinal: soft,nontender, nondistended Genitourinary: deferred Extremities: +1 edmea BLE's (chronic), no c/c, trace pedal pulses B Results Imaging Additional studies: CT abdomen/pelvis: 1. In addition to small cyst in the right kidney there is perinephric streaking-edema around the right kidney which may be related to infectious etiology such as pyelonephritis.? However, cannot exclude the possibility that this is related to renal vein thrombosis which is difficult to visualize because there was no IV contrast here. 2. Cholelithiasis.? No obvious acute cholecystitis.? Gallbladder is not distended nor edematous.? The biliary tree is not dilated. 3. There is relatively symmetrical abnormal symmetrical thickening of the skin and subcutaneous fat over both sides of the abdomen but without a drainable fluid collection.? Probable infectious etiologies such as cellulitis. Uniform thickening of the urinary bladder wall.? This may be due to under distension but cannot rule out the possibility that this is related to cystitis. CXR: No acute pulmonary findings on this single AP portable view of the chest. EKG #1: ST, HR 99, peaked T waves vs early repolarization pattern, no acute ischemia EKG #2: ST, HR 95, unchanged Labs Result diagrams: 02/01/21 12:43 02/01/21 15:40 Labs: Laboratory Results - last 24 hr 02/01/21 02/01/21 02/01/21 12:43 12:43 12:43 WBC 11.45 H RBC 3.18 L Hgb 9.9 L Hct 30.0 L MCV 94.3 MCH 31.1 MCHC 33.0 RDW 12.2 Plt Count 193 MPV 8.8 Immature Gran % 0.5 Neutrophils % 79.7 Lymphocytes % 8.0 Monocytes % 11.4 Eosinophils % 0.2 Basophils % 0.2 Nucleated RBC % 0 Absolute Neutrophils 9.13 H Absolute Lymphocytes 0.92 L Absolute Monocytes 1.31 H Absolute Eosinophils 0.02 Absolute Basophils 0.02 PT 11.3 H INR 1.1 APTT 31.9 H D-Dimer VBG Lactate Sodium 133 L Potassium 5.3 H Chloride 99 Carbon Dioxide 24.4 Anion Gap 9.6 BUN 39 H Creatinine 1.8 H Estimated GFR/1.73 m2 39.67 Glucose 144 H Calcium 8.8 Magnesium 1.8 Total Bilirubin 0.6 AST 15 ALT 28 Alkaline Phosphatase 90 Troponin I < 0.05 C-Reactive Protein Total Protein 7.7 Albumin 2.9 L Urine Color Urine Clarity Urine pH Ur Specific [place] Urine Protein Urine Ketones Urine Blood Urine Nitrite Urine Bilirubin Urine Urobilinogen Ur Leukocyte Esterase Urine RBC Urine WBC Ur Epithelial Cells Urine Crystals Urine Bacteria Urine Casts Urine Mucus Ur Culture Indicated? Urine Glucose Urine Opiates Screen Urine Methadone Screen Ur Barbiturates Screen Ur Tricyclics Screen Ur Amphetamines Screen U Benzodiazepines Scrn Urine Cocaine Screen Ur THC Screen COVID-19 Source SARS-CoV-2 (PCR) 02/01/21 02/01/21 02/01/21 12:43 12:59 14:02 WBC RBC Hgb Hct MCV MCH MCHC RDW Plt Count MPV Immature Gran % Neutrophils % Lymphocytes % Monocytes % Eosinophils % Basophils % Nucleated RBC % Absolute Neutrophils Absolute Lymphocytes Absolute Monocytes Absolute Eosinophils Absolute Basophils PT INR APTT D-Dimer 527 H VBG Lactate Sodium Potassium Chloride Carbon Dioxide Anion Gap BUN Creatinine Estimated GFR/1.73 m2 Glucose Calcium Magnesium Total Bilirubin AST ALT Alkaline Phosphatase Troponin I C-Reactive Protein Total Protein Albumin Urine Color Urine Clarity Urine pH Ur Specific [place] Urine Protein Urine Ketones Urine Blood Urine Nitrite Urine Bilirubin Urine Urobilinogen Ur Leukocyte Esterase Urine RBC Urine WBC Ur Epithelial Cells Urine Crystals Urine Bacteria Urine Casts Urine Mucus Ur Culture Indicated? Urine Glucose Urine Opiates Screen Negative Urine Methadone Screen Negative Ur Barbiturates Screen Negative Ur Tricyclics Screen Negative Ur Amphetamines Screen Negative U Benzodiazepines Scrn Negative Urine Cocaine Screen Negative Ur THC Screen Negative COVID-19 Source Nasal/nares SARS-CoV-2 (PCR) Negative 02/01/21 02/01/21 02/01/21 14:02 15:40 15:40 WBC RBC Hgb Hct MCV MCH MCHC RDW Plt Count MPV Immature Gran % Neutrophils % Lymphocytes % Monocytes % Eosinophils % Basophils % Nucleated RBC % Absolute Neutrophils Absolute Lymphocytes Absolute Monocytes Absolute Eosinophils Absolute Basophils PT INR APTT D-Dimer VBG Lactate Sodium Potassium 5.3 H Chloride Carbon Dioxide Anion Gap BUN Creatinine Estimated GFR/1.73 m2 Glucose Calcium Magnesium Total Bilirubin AST ALT Alkaline Phosphatase Troponin I < 0.05 C-Reactive Protein Total Protein Albumin Urine Color Yellow Urine Clarity Clear Urine pH 6.0 Ur Specific [place] 1.020 Urine Protein >=300 H Urine Ketones Negative Urine Blood Moderate H Urine Nitrite Positive H Urine Bilirubin Negative Urine Urobilinogen 0.2 Ur Leukocyte Esterase Negative Urine RBC 10-20 H Urine WBC 10-20 H Ur Epithelial Cells Few Urine Crystals Negative Urine Bacteria Many Urine Casts Negative Urine Mucus Negative Ur Culture Indicated? Yes Urine Glucose 500 H Urine Opiates Screen Urine Methadone Screen Ur Barbiturates Screen Ur Tricyclics Screen Ur Amphetamines Screen U Benzodiazepines Scrn Urine Cocaine Screen Ur THC Screen COVID-19 Source SARS-CoV-2 (PCR) 02/01/21 02/01/21 15:40 16:22 WBC RBC Hgb Hct MCV MCH MCHC RDW Plt Count MPV Immature Gran % Neutrophils % Lymphocytes % Monocytes % Eosinophils % Basophils % Nucleated RBC % Absolute Neutrophils Absolute Lymphocytes Absolute Monocytes Absolute Eosinophils Absolute Basophils PT INR APTT D-Dimer VBG Lactate 0.5 L Sodium Potassium Chloride Carbon Dioxide Anion Gap BUN Creatinine Estimated GFR/1.73 m2 Glucose Calcium Magnesium Total Bilirubin AST ALT Alkaline Phosphatase Troponin I C-Reactive Protein 13.39 H Total Protein Albumin Urine Color Urine Clarity Urine pH Ur Specific [place] Urine Protein Urine Ketones Urine Blood Urine Nitrite Urine Bilirubin Urine Urobilinogen Ur Leukocyte Esterase Urine RBC Urine WBC Ur Epithelial Cells Urine Crystals Urine Bacteria Urine Casts Urine Mucus Ur Culture Indicated? Urine Glucose Urine Opiates Screen Urine Methadone Screen Ur Barbiturates Screen Ur Tricyclics Screen Ur Amphetamines Screen U Benzodiazepines Scrn Urine Cocaine Screen Ur THC Screen COVID-19 Source SARS-CoV-2 (PCR) Last Vital Signs Temp 37.1 C 02/01/21 19:58 Pulse 94 H 02/01/21 19:58 Resp 18 02/01/21 19:58 BP 135/72 02/01/21 19:58 Pulse Ox 96 02/01/21 19:58 COVID-19 Screening Have you, or household traveled for leisure in last 14 days?: No Had IN PERSON contact w/suspected or confirmed C-19 person: No
[2021-02-01] MEDS: Insulin NPH-Human 300 UNITS/3 ML PEN 50 UNIT SC (23:04)
[2021-02-02] VITALS (11 sets, daily range): BP systolic 121–140; BP diastolic 65–84; PULSE 83–97; RESP 17–26; TEMP 36.5–38.6; O2SAT 90–98
--- NOTE | 2021-02-02 | DI.US_ITS ---
Exam(s) US RENAL EXAM: US RENAL CLINICAL HISTORY: edema around right kidney, ? pyelo vs renal thromb TECHNIQUE: Ultrasound of both kidneys performed using standard protocol. COMPARISON: US US ECHOCARDIOGRAM from 09/11/2020 FINDINGS: RIGHT KIDNEY: Measures 13.4 cm in length. There is an exophytic cyst off the inferior pole of the right kidney bonifacio uring 2 x 2.1 cm. Is also a 1.6 x 1.3 cm cyst in the superior pole of the right kidney. Normal tanner ical thickness and corticomedullary differentiation. No intrarenal calculi nor hydronephrosis. LEFT KIDNEY: Measures 12.7 cm in length. Small 8 x 7 millimeter midpole level cyst. No other focal left kidney f indings. Normal cortical thickness and corticomedullary differentiaion. No solids masses. No intrar enal calculi nor hydonephrosis. URINARY BLADDER: Prevoid volume is 298 cc Postvoid volume is 5 cc No evidence of bladder mass nor diverticuli. Ureterovesical jets: Both identified and appear symmetrical IMPRESSION: 1. Small bilateral renal cysts. No solid renal masses. No calculi nor hydronephrosis. 2. Incidentally noted are multiple gallbladder polyps. Largest measures 7 millimeters. DATA REPOSITORY:
[2021-02-02] MEDS: Acetaminophen 325 MG TAB 650 MG PO (03:30)
[2021-02-02] MEDS: Normal Saline 1,000 ML 150 ML IV (07:07)
[2021-02-02 07:26] LABS: Abs Immature Grans 0.05 10^3/uL (0.0-0.06); Absolute Basophil Count 0.02 10^3/uL (0.0-0.2); Absolute Eosinophil Count 0.04 10^3/uL (0.0-0.7); Absolute Lymphocyte Count 0.95 10^3/uL (1.2-3.4); Absolute Monocyte Count 1.25 10^3/uL (0.1-0.8); Basophils % 0.2; Eosinophils % 0.4; HCT 25.6 % (40.0-50.0); HGB 8.3 g/dL (13.5-17.5); Immature Grans % 0.5; Lymphocytes % 9.3; MCH 31.1 pg (27.0-33.0); MCHC 32.4 % (32.0-36.0); MCV 95.9 fL (80-95); MPV 9.2 fL (8.0-11.0); Monocytes % 12.2; Neutrophils % 77.4; Nucleated RBC 0 %; RBC 2.67 10^6/uL (4.36-5.78); RDW 12.4 % (11.8-14.1); RDW-SD 43.5 fL; WBC 10.21 10^3/uL (4.4-10.8)
[2021-02-02 07:43] LABS: Iron 18 ug/dL (65-175); Total Iron Binding Capacity 139 ug/dL (250-450); Transferrin Sat 13 % (20-55)
[2021-02-02 08:00] LABS: BUN 38 mg/dL (7-18); CREATININE 1.9 mg/dL (0.70-1.30); Calcium 8.2 mg/dL (8.5-10.1); Chloride 102 mmol/L (98-107); Estimated GFR 37.27 (mL/min/1.73m2); Ferritin 533 ng/mL (26-388); Glucose 115 mg/dL (74-106); Magnesium 2.1 mg/dL (1.8-2.4); Potassium 4.8 mmol/L (3.5-5.1); Sodium 137 mmol/L (136-145)
[2021-02-02 08:02] LABS: Basophilic Stippling Present; Diff Comment Diff Reviewed; Hypochromasia 1+; Polychromasia Present
[2021-02-02 08:09] LABS: Uric Acid 5.3 mg/dL (3.5-7.2)
[2021-02-02 08:11] LABS: TSH (W/Ref FT4) 0.86 uIU/mL (0.36-3.74); Vitamin B12 381 pg/mL (193-986)
[2021-02-02] MEDS: Labetalol 100 MG TAB PO ×2 (08:15→19:50)
[2021-02-02] MEDS: Aspirin 81 MG CHEW 162 MG PO (08:15)
[2021-02-02] MEDS: Cholecalciferol (Vitamin D3) 1,000 UNIT TAB 1000 UNITS PO (08:15)
[2021-02-02] MEDS: Allopurinol 100 MG TAB 200 MG PO ×2 (08:16→19:49)
[2021-02-02] MEDS: Atorvastatin 40 MG TAB PO (08:16)
--- NOTE | 2021-02-02 10:52 | DI.VRAD_ITS ---
PROCEDURE INFORMATION: Exam: US Retroperitoneal; Complete; Kidneys and Bladder Exam date and time: 02/02/2021 9:01 AM Age: 55 years old Clinical indication: Pain; Other: Epigastric; Patient HX: Edema around right kidney seen on CT. ? Pylo vs. Renal thrombus TECHNIQUE: Imaging protocol: Real-time ultrasound of the retroperitoneum with image documentation. Complete exam focused on the kidneys and bladder. COMPARISON: CT ABDOMEN PELVIS WO 02/01/2021 4:38 PM FINDINGS: Liver: Fatty infiltration of the liver, partially visualized. Gallbladder: Nonmobile polyps versus adenomyomatosis of the gallbladder. Largest measures 7 mm. Right kidney: Measures 13.4 x 5.7 x 6.3 cm. No stones. No hydronephrosis. Multiple cortical renal cysts. Largest on the right measures 2 x 1.2 x 2.1 cm. Contains internal echoes, may be artifact due to patient body habitus. Left kidney: Measures 12.7 x 5.5 x 6.3 cm. No stones. No hydronephrosis. Cortical renal cysts, largest measures 0.8 x 0.7 x 0.8 cm. Urinary bladder: Unremarkable. Full bladder measures 298 cubic cm, postvoid measures 5 cubic cm. IMPRESSION: 1. Cortical renal cysts bilaterally. No hydronephrosis. 2. Nonmobile polyps versus adenomyomatosis of the gallbladder. Largest measures 7 mm. Dictated and Authenticated by: Aileen Cali MD. Ordering:BYRON Xiao MD
[2021-02-02] MEDS: Insulin Aspart 300 UNITS/3 ML PEN SC ×2 (11:55→21:23)
--- NOTE | 2021-02-02 13:02 | PGE_ITS ---
Date of Service Date of service: 02/02/21 Time of Service: 13:02 Assessment and Plan Assessment and plan (1) Sepsis: Start date: 02/02/21 Start time: 13:06 Status: Ruled-out Assessment and plan: He was febrile, however lactate 0.5 WBC 11.45 now at 10.21 he was febrile on admission. Blood cultures pending. No pain at this time HR slight tach Resp normal BP normotensive. (2) Pyelonephritis: Start date: 02/02/21 Start time: 13:15 Status: Acute Assessment and plan: Per CT pyelo, No complaints of pain at this time. continue ceftriaxone CRP was 13. Procal 0.4 growing gram negative sujatha greater than 100,000 continue ceftriaxone. (3) Nausea: Start date: 02/02/21 Start time: 13:19 Status: Resolved Assessment and plan: Resolved, no longer feeling nauseated (4) Insulin dependent type 2 diabetes mellitus: Start date: 02/02/21 Start time: 13:20 Status: Chronic Assessment and plan: Confusion on insulin regimen. Pt states taking NPH but has not picked any up since over a year. Pharmacy will contact PCP for Clarification. At this time BGL is 150's. Continue to monitor. (5) CKD (chronic kidney disease) stage 3, GFR 30-59 ml/min: Start date: 02/02/21 Start time: 13:23 Status: Chronic Assessment and plan: At baseline. Monitor Cr. (6) Obstructive sleep apnea: Start date: 02/02/21 Start time: 13:23 Status: Chronic Assessment and plan: Not compliant with CPAP because he ran out of supplies. States that the CPAP used to be through [facility]. States had a sleep study 8 years ago at [facility]. Agrees to wear a CPAP while here. (7) Hypertension: Start date: 02/02/21 Start time: 13:24 Status: Chronic Assessment and plan: will continue to hold chlorithaladone in setting of worsening CKD Hold lisinopril due to hyperkalemia. (8) Hyperkalemia: Start date: 02/02/21 Start time: 13:25 Status: Resolved Assessment and plan: Now 4.8 recently placed on spironolactone, and potassium supplement, potassium should be discontinued if he is hyperkalemic on spironolactone (9) DVT prophylaxis: Start date: 02/02/21 Start time: 13:25 Status: Acute Assessment and plan: [place] dennisx (10) Discharge planning issues: Start date: 02/02/21 Start time: 13:25 Status: Acute Assessment and plan: Full code Obs Could benefit from a CGM/diabetes education Needs to have the CPAP supplies addressed. discussed with dr. Schumacher Subjective Subjective Patient reports: feels better Interval history since last seen: Doing well. Laying in bed no complaints. Renal US with IMPRESSION: 1. Cortical renal cysts bilaterally. No hydronephrosis. 2. Nonmobile polyps versus adenomyomatosis of the gallbladder. Largest measures 7 mm. He denies pain. Afebrile at this time. continue antibiotics, tolerating diet. Exam Narrative Exam Narrative: General: Very pleasant obese male laying in bed NADl, able to answer all questions Neurological: A&ox3, no focal deficits; preserved sensation in B feet Psychiatric: Appropriate speech pattern/content Skin: Acanthosis nigricans of the neck, ankles; B feet without lesions HEENT: Atraumatic, normocephalic, EOMI, dry MM, clear oropharynx, no submandibular or cervical lymphadenopathy, + goiter, no JVD Cardiovascular: RRR, no m/r/g, tachycardic Lungs: CTAB Gastrointestinal: soft,nontender, nondistended Extremities: BLE's with chronic discoloration and vascular changes, no c/c, trace pedal pulses B Objective Last Vital Signs Temp 36.6 C 02/02/21 11:01 Pulse 83 02/02/21 11:01 Resp 20 02/02/21 11:01 BP 124/65 02/02/21 11:01 Pulse Ox 94 02/02/21 11:01 Laboratory Results - last 24 hr 02/01/21 02/01/21 02/01/21 12:43 12:43 12:43 WBC RBC Hgb Hct MCV MCH MCHC RDW Plt Count MPV Immature Gran % Neutrophils % Lymphocytes % Monocytes % Eosinophils % Basophils % Nucleated RBC % Absolute Neutrophils Absolute Lymphocytes Absolute Monocytes Absolute Eosinophils Absolute Basophils RBC Morphology Polychromasia Hypochromasia Basophilic Stippling PT 11.3 H INR 1.1 APTT 31.9 H D-Dimer 527 H VBG Lactate Sodium 133 L Potassium 5.3 H Chloride 99 Carbon Dioxide 24.4 Anion Gap 9.6 BUN 39 H Creatinine 1.8 H Estimated GFR/1.73 m2 39.67 Glucose 144 H Uric Acid Calcium 8.8 Magnesium 1.8 Iron TIBC Transferrin % Sat Ferritin Total Bilirubin 0.6 AST 15 ALT 28 Alkaline Phosphatase 90 Troponin I < 0.05 C-Reactive Protein Total Protein 7.7 Albumin 2.9 L Vitamin B12 Folate Procalcitonin TSH Urine Color Urine Clarity Urine pH Ur Specific [place] Urine Protein Urine Ketones Urine Blood Urine Nitrite Urine Bilirubin Urine Urobilinogen Ur Leukocyte Esterase Urine RBC Urine WBC Ur Epithelial Cells Urine Crystals Urine Bacteria Urine Casts Urine Mucus Ur Culture Indicated? Urine Glucose Urine Opiates Screen Urine Methadone Screen Ur Barbiturates Screen Ur Tricyclics Screen Ur Amphetamines Screen U Benzodiazepines Scrn Urine Cocaine Screen Ur THC Screen COVID-19 Source SARS-CoV-2 (PCR) 02/01/21 02/01/21 02/01/21 12:59 14:02 14:02 WBC RBC Hgb Hct MCV MCH MCHC RDW Plt Count MPV Immature Gran % Neutrophils % Lymphocytes % Monocytes % Eosinophils % Basophils % Nucleated RBC % Absolute Neutrophils Absolute Lymphocytes Absolute Monocytes Absolute Eosinophils Absolute Basophils RBC Morphology Polychromasia Hypochromasia Basophilic Stippling PT INR APTT D-Dimer VBG Lactate Sodium Potassium Chloride Carbon Dioxide Anion Gap BUN Creatinine Estimated GFR/1.73 m2 Glucose Uric Acid Calcium Magnesium Iron TIBC Transferrin % Sat Ferritin Total Bilirubin AST ALT Alkaline Phosphatase Troponin I C-Reactive Protein Total Protein Albumin Vitamin B12 Folate Procalcitonin TSH Urine Color Yellow Urine Clarity Clear Urine pH 6.0 Ur Specific [place] 1.020 Urine Protein >=300 H Urine Ketones Negative Urine Blood Moderate H Urine Nitrite Positive H Urine Bilirubin Negative Urine Urobilinogen 0.2 Ur Leukocyte Esterase Negative Urine RBC 10-20 H Urine WBC 10-20 H Ur Epithelial Cells Few Urine Crystals Negative Urine Bacteria Many Urine Casts Negative Urine Mucus Negative Ur Culture Indicated? Yes Urine Glucose 500 H Urine Opiates Screen Negative Urine Methadone Screen Negative Ur Barbiturates Screen Negative Ur Tricyclics Screen Negative Ur Amphetamines Screen Negative U Benzodiazepines Scrn Negative Urine Cocaine Screen Negative Ur THC Screen Negative COVID-19 Source Nasal/nares SARS-CoV-2 (PCR) Negative 02/01/21 02/01/21 02/01/21 15:40 15:40 15:40 WBC RBC Hgb Hct MCV MCH MCHC RDW Plt Count MPV Immature Gran % Neutrophils % Lymphocytes % Monocytes % Eosinophils % Basophils % Nucleated RBC % Absolute Neutrophils Absolute Lymphocytes Absolute Monocytes Absolute Eosinophils Absolute Basophils RBC Morphology Polychromasia Hypochromasia Basophilic Stippling PT INR APTT D-Dimer VBG Lactate Sodium Potassium 5.3 H Chloride Carbon Dioxide Anion Gap BUN Creatinine Estimated GFR/1.73 m2 Glucose Uric Acid Calcium Magnesium Iron TIBC Transferrin % Sat Ferritin Total Bilirubin AST ALT Alkaline Phosphatase Troponin I < 0.05 C-Reactive Protein Total Protein Albumin Vitamin B12 Folate Procalcitonin 0.4 TSH Urine Color Urine Clarity Urine pH Ur Specific [place] Urine Protein Urine Ketones Urine Blood Urine Nitrite Urine Bilirubin Urine Urobilinogen Ur Leukocyte Esterase Urine RBC Urine WBC Ur Epithelial Cells Urine Crystals Urine Bacteria Urine Casts Urine Mucus Ur Culture Indicated? Urine Glucose Urine Opiates Screen Urine Methadone Screen Ur Barbiturates Screen Ur Tricyclics Screen Ur Amphetamines Screen U Benzodiazepines Scrn Urine Cocaine Screen Ur THC Screen COVID-19 Source SARS-CoV-2 (PCR) 02/01/21 02/01/21 02/02/21 15:40 16:22 06:30 WBC RBC Hgb Hct MCV MCH MCHC RDW Plt Count MPV Immature Gran % Neutrophils % Lymphocytes % Monocytes % Eosinophils % Basophils % Nucleated RBC % Absolute Neutrophils Absolute Lymphocytes Absolute Monocytes Absolute Eosinophils Absolute Basophils RBC Morphology Polychromasia Hypochromasia Basophilic Stippling PT INR APTT D-Dimer VBG Lactate 0.5 L Sodium 137 Potassium 4.8 Chloride 102 Carbon Dioxide 23.0 Anion Gap 12.0 H BUN 38 H Creatinine 1.9 H Estimated GFR/1.73 m2 37.27 Glucose 115 H Uric Acid 5.3 Calcium 8.2 L Magnesium 2.1 Iron TIBC Transferrin % Sat Ferritin 533 H Total Bilirubin AST ALT Alkaline Phosphatase Troponin I C-Reactive Protein 13.39 H Total Protein Albumin Vitamin B12 Folate Procalcitonin TSH Urine Color Urine Clarity Urine pH Ur Specific [place] Urine Protein Urine Ketones Urine Blood Urine Nitrite Urine Bilirubin Urine Urobilinogen Ur Leukocyte Esterase Urine RBC Urine WBC Ur Epithelial Cells Urine Crystals Urine Bacteria Urine Casts Urine Mucus Ur Culture Indicated? Urine Glucose Urine Opiates Screen Urine Methadone Screen Ur Barbiturates Screen Ur Tricyclics Screen Ur Amphetamines Screen U Benzodiazepines Scrn Urine Cocaine Screen Ur THC Screen COVID-19 Source SARS-CoV-2 (PCR) 02/02/21 02/02/21 02/02/21 06:30 06:30 06:30 WBC 10.21 RBC 2.67 L Hgb 8.3 L Hct 25.6 L MCV 95.9 H MCH 31.1 MCHC 32.4 RDW 12.4 Plt Count MPV 9.2 Immature Gran % 0.5 Neutrophils % 77.4 Lymphocytes % 9.3 Monocytes % 12.2 Eosinophils % 0.4 Basophils % 0.2 Nucleated RBC % 0 Absolute Neutrophils 7.90 H Absolute Lymphocytes 0.95 L Absolute Monocytes 1.25 H Absolute Eosinophils 0.04 Absolute Basophils 0.02 RBC Morphology See below Polychromasia Present Hypochromasia 1+ Basophilic Stippling Present PT INR APTT D-Dimer VBG Lactate Sodium Potassium Chloride Carbon Dioxide Anion Gap BUN Creatinine Estimated GFR/1.73 m2 Glucose Uric Acid Calcium Magnesium Iron 18 L TIBC 139 L Transferrin % Sat 13 L Ferritin Total Bilirubin AST ALT Alkaline Phosphatase Troponin I C-Reactive Protein Total Protein Albumin Vitamin B12 381 Folate 16.0 Procalcitonin TSH 0.86 Urine Color Urine Clarity Urine pH Ur Specific [place] Urine Protein Urine Ketones Urine Blood Urine Nitrite Urine Bilirubin Urine Urobilinogen Ur Leukocyte Esterase Urine RBC Urine WBC Ur Epithelial Cells Urine Crystals Urine Bacteria Urine Casts Urine Mucus Ur Culture Indicated? Urine Glucose Urine Opiates Screen Urine Methadone Screen Ur Barbiturates Screen Ur Tricyclics Screen Ur Amphetamines Screen U Benzodiazepines Scrn Urine Cocaine Screen Ur THC Screen COVID-19 Source SARS-CoV-2 (PCR)
[2021-02-02] MEDS: Insulin Glargine 300 UNITS/3 ML PEN 45 UNITS SC (14:11)
--- NOTE | 2021-02-02 18:03 | RESPIRATORY ---
Pt does not use cpap at home, says he is unable to afford supplies and hasn't used in about 5 years.
[2021-02-02] MEDS: Pantoprazole 40 MG VIAL IVP (18:17)
[2021-02-02] MEDS: Normal Saline Flush 10 ML SYR IVP ×2 (18:18→19:51)
[2021-02-02] MEDS: cefTRIAXone 2 GM/50 ML BAG IVPB (18:18)
--- NOTE | 2021-02-02 18:59 | PDOC.CMIN ---
- If Service Date Differs Date of service: 02/02/21 Time of Service: 18:59 Care Management Initial Assess REASON FOR HOSPITALIZATION:: sepsis PAST MEDICAL HISTORY/PAST SURGICAL HISTORY:: Medical History (Updated 02/01/21 @ 23:37 by Zeenat Rodríguez MD). CKD (chronic kidney disease) stage 3, GFR 30-59 ml/min. Diastolic heart failure. Glaucoma, bilateral. Gout. Hyperlipidemia. Hypertension. Insulin dependent type 2 diabetes mellitus. Joint stiffness. Morbid obesity. Obstructive sleep apnea. noncompliant with CPAP; sleep study at [facility]. Proteinuria. Retinal detachment, left. Retinal lattice degeneration. Surgical History (Updated 02/01/21 @ 23:37 by Zeenat Rodríguez MD). H/O eye surgery. Left retinal detachment. S/P colonoscopy (~10/31/18) PREVIOUS FUNCTIONAL STATUS/SOCIAL/FAMILY SUPPORTS:: Johnson lives in a single family home in [place] with his and 2 children ages 21 and 23. He works at [employer] in [place] in various capacities. Johnson is independent at baseline, drives and does not receive any community services. CURRENT FUNCTIONAL STATUS:: Johnson was sitting up in bed when CM met with him. He was polite but not talkative, answering questions when asked. Johnson did share that his left eye is blurry all the time and is extremely bothersome. He is scheduled to have cataract surgery in 2 weeks. He was febrile last night and admitted to being in a lot of pain. ADVANCE DIRECTIVES:: no and not interested at this time. Has patient been provided with info about the portal/API?: Yes Did the patient sign up for the portal?: No CODE STATUS:: Full Code INSURANCE COVERAGE / FINANCIAL ISSUES:: [employer] CURRENT HOME/COMMUNITY SERVICES/EQUIPMENT:: none PRIMARY CARE PHYSICIAN:: Silke Lyon POTENTIAL DISCHARGE NEEDS:: Follow up with PCP and plan of care PATIENT/FAMILY EDUCATION NEEDS:: Review of discharge instructions, medications, activity, limitations, Ask Me Three. TRANSPORTATION:: via private vehicle with family PLAN:: Johnson will likely be discharged home with no new services. He will follow up with his community providers and plan of care and transport with family. CM will contine to support Johnson and assess for discharge planning concerns.
[2021-02-02] MEDS: Enoxaparin 30 MG/0.3 ML SYR SC (19:51)
[2021-02-03 03:24] VITALS: BP 127/68; PULSE 87; RESP 19; TEMP 37.2; O2SAT 96
[2021-02-03 07:30] VITALS: BP 155/75; PULSE 89; RESP 18; TEMP 36.8; O2SAT 96
[2021-02-03 07:39] LABS: Abs Immature Grans 0.05 10^3/uL (0.0-0.06); Absolute Basophil Count 0.03 10^3/uL (0.0-0.2); Absolute Monocyte Count 0.95 10^3/uL (0.1-0.8); Absolute Neutrophil Count 6.68 10^3/uL (1.2-6.7); Basophils % 0.3; Eosinophils % 1.1; HCT 25.8 % (40.0-50.0); HGB 8.4 g/dL (13.5-17.5); Immature Grans % 0.6; Lymphocytes % 10.3; MCHC 32.6 % (32.0-36.0); MCV 95.2 fL (80-95); MPV 9.5 fL (8.0-11.0); Monocytes % 10.9; Neutrophils % 76.8; Nucleated RBC 0 %; Platelet Count 180 10^3/uL (130-400); RBC 2.71 10^6/uL (4.36-5.78); RDW 12.2 % (11.8-14.1); RDW-SD 42.6 fL; WBC 8.71 10^3/uL (4.4-10.8)
[2021-02-03 07:47] LABS: Anion Gap 8.7 mmol/L (3-11); BUN 31 mg/dL (7-18); CO2 24.3 mmol/L (21.0-32.0); CREATININE 1.8 mg/dL (0.70-1.30); Calcium 8.6 mg/dL (8.5-10.1); Chloride 102 mmol/L (98-107); Estimated GFR 39.67 (mL/min/1.73m2); Glucose 86 mg/dL (74-106); Potassium 4.4 mmol/L (3.5-5.1); Sodium 135 mmol/L (136-145)
[2021-02-03] MEDS: Labetalol 100 MG TAB PO (08:31)
[2021-02-03] MEDS: Atorvastatin 40 MG TAB PO (08:31)
[2021-02-03] MEDS: Cholecalciferol (Vitamin D3) 1,000 UNIT TAB 1000 UNITS PO (08:32)
[2021-02-03] MEDS: Allopurinol 100 MG TAB 200 MG PO (08:32)
[2021-02-03] MEDS: Aspirin 81 MG CHEW 162 MG PO (08:32)
[2021-02-03] MEDS: Insulin Glargine 300 UNITS/3 ML PEN 45 UNITS SC (08:32)
--- NOTE | 2021-02-03 11:47 | W.PM.DS.N ---
Date of service: 02/03/21 Time of Service: 11:47 DS: Diagnosis Discharge Diagnosis (1) Pyelonephritis: Start date: 02/03/21 Start time: 11:47 Status: Resolved Asessment and Plan: No pain. evidenced by CT. Initiated on ceftriaxone. Fevers have defervesced. he has been doing well. He denies pain, and dysuria. His blood cultures no growth to date. Spoke with lab urine culture growing e. coli. sensitive to ceftriaxone. Therefore patient will discharged home on levaquin daily x 7 days. (2) Nausea: Start date: 02/03/21 Start time: 12:01 Status: Resolved Asessment and Plan: resolved (3) Insulin dependent type 2 diabetes mellitus: Start date: 02/03/21 Start time: 12:02 Status: Chronic Asessment and Plan: He needs to follow up with his director of materials management to adjust medication regimen and narrow insulins. Continue carb controlled diet. (4) CKD (chronic kidney disease) stage 3, GFR 30-59 ml/min: Start date: 02/03/21 Start time: 12:04 Status: Chronic Asessment and Plan: at baseline (5) Obstructive sleep apnea: Start date: 02/03/21 Start time: 12:04 Status: Chronic Asessment and Plan: Refuses to wear cpap at home, he was agreeable here (6) Hypertension: Start date: 02/03/21 Start time: 12:05 Status: Chronic Asessment and Plan: continue home regimen, variable while in the hospital mostly normatensive (7) Hyperkalemia: Start date: 02/03/21 Start time: 12:05 Status: Resolved Asessment and Plan: Normal, potassium should be held until he sees his primary as he is on spironolactone and came in with hyperkalemia above case discussed with Dr. Schumacher Discharge Plan Disposition Patient Disposition: HOME Condition: Stable Discharge Details Reason For Visit: SEPSIS DUE TO PYELONEPHRITIS Admit Date/Time: 02/01/21 18:34 Admit Provider: Zeenat Rodríguez Attending Provider: Zeenat Rodríguez Primary Care Provider: Silke Lyon Hospital Course Hospital Course: 55 y.o male admitted to [facility] for pyelonephritis and UTI. Labs in the ED revealed slight elevated WBC at 11, anemia of 8.4, potassium 5.3, procal 0.4,. He was admitted to /s and initiated on ceftriaxone. He was febrile on admission but defervesced over the last 24 hours. Urine cx growing e.coli per lab. Will treat with 7 day course of levaquin for complicated UTI. Renal u/s revealed no hydronephrosis, cysts bilaterally. Blood cultures negative. He feels well. Denies pain, dysuria. He is being discharged home. Recommend follow up with his Floor Clerk to narrow insulin. Follow up with PCP in 1 week. call to make appt. Home Meds and New Rx's Prescriptions: New levofloxacin 750 mg tablet 750 mg PO DAILY Qty: 7 RF: 0 Continued cholecalciferol (vitamin D3) 1,000 unit capsule 1,000 unit PO DAILY RF: 0 Trulicity 1.5 mg/0.5 mL pen injector 1.5 mg SC QWEEK RF: 0 allopurinol 100 MG tablet 200 mg PO BID RF: 0 metformin [Glucophage] 1,000 MG tablet 1,000 mg PO BID RF: 0 aspirin 325 MG tablet 162 mg PO DAILY RF: 0 chlorthalidone 25 MG tablet 50 mg PO DAILY RF: 0 lisinopril 40 MG tablet 40 mg PO DAILY RF: 0 atorvastatin [Lipitor] 40 MG tablet 40 mg PO DAILY RF: 0 labetalol 100 MG tablet 100 mg PO BID RF: 0 Toujeo SoloStar U-300 Insulin 300 unit/mL (1.5 mL) insulin pen 90 unit SUBCUT DAILY RF: 0 betamethasone dipropionate 0.05 % cream 0 applic TOPICAL BID RF: 0 spironolactone 50 mg tablet 50 mg PO DAILY RF: 0 Invokana 300 MG tablet 300 mg PO DAILY AM RF: 0 No Action Novolin R Regular U-100 Insuln 100 unit/mL solution 40 unit Sub-Q AC RF: 0 Novolin N NPH U-100 Insulin 100 unit/mL suspension 70 unit SUBCUT HS RF: 0 Discharge Instructions Instructions: Urinary Tract Infection in Men (GEN), Kidney Infection (GEN) Additional Instructions: Follow up with PCP in 1 week, call to make that appt. Take antibiotics x 1 week Continue low carb diet. Stand Alone Forms: Nursing Discharge Form Referrals: Silke Lyon [Primary Care Provider] - 02/14/21 1:30 pm Activity:: Activity as Tolerated Equipment/Supplies:: No Equipment Needed Diet:: Carb Counting Discharge Orders Discharge Orders: Discharge Order (Routine); Ordered 02/03/21 Ordered By: Ninoska Manley DS: Summary Time Spent with Patient providing and/or coordinating discharge services: Greater than 30 minutes Status at Discharge Functional status at discharge: independent ambulation Overall status at discharge: patient is back to baseline Mental Status: mental status grossly normal Speech and Movement: speech and movement normal Mood: congruent mood Affect: normal affect Exam Narrative Exam Narrative: General: Very pleasant obese male sitting up in chair. NAD, able to answer all questions Neurological: A&ox3, no focal deficits; preserved sensation in B feet Psychiatric: Appropriate speech pattern/content Skin: Acanthosis nigricans of the neck, ankles; B feet without lesions HEENT: Atraumatic, normocephalic, EOMI, dry MM, clear oropharynx, no submandibular or cervical lymphadenopathy, + goiter, no JVD Cardiovascular: RRR, no m/r/g, tachycardic Lungs: CTAB Gastrointestinal: soft,nontender, nondistended Extremities: BLE's with chronic discoloration and vascular changes, no c/c, trace pedal pulses B Psych Mental Status: mental status grossly normal Speech and Movement: speech and movement normal Mood: congruent mood Affect: normal affect DS: Data Vitals/I&O Vitals and I&O: Vital Signs Temperature 36.8 C 02/03/21 07:30 Temperature Source Tympanic 02/03/21 07:30 Pulse 89 02/03/21 07:30 Pulse Rhythm Regular 02/03/21 09:11 Pulse 104 H 02/01/21 17:31 Respiratory Rate 18 02/03/21 07:30 Respiratory Effort Non-Labored 02/03/21 09:11 Respiratory Depth Normal 02/03/21 09:11 Respiratory Pattern Normal 02/03/21 09:11 Blood Pressure 155/75 H 02/03/21 07:30 Blood Pressure Mean 72 02/01/21 17:31 Blood Pressure Position Supine 02/01/21 12:31 Pulse Oximetry 96 02/03/21 07:30 Oxygen Delivery Method Room Air 02/03/21 07:30 Oxygen Flow Rate 0 02/03/21 07:30 Pain Level 0 02/03/21 07:30 Intake & Output 02/02/21 02/02/21 02/03/21 11:59 23:59 11:59 Intake Total 1000 / 4110 3110 / 4110 250 / 250 Output Total 1000 / 2200 1200 / 2200 1000 / 1000 Balance 0 / 1910 1910 / 1910 -750 / -750 Weight 136.9 kg Intake: IV 1000 / 3060 2060 / 3060 Oral 1050 / 1050 250 / 250 Output: Urine 1000 / 2200 1200 / 2200 1000 / 1000 Other: Urine Color Yellow Yellow Yellow Urine Appearance Clear Clear Clear Urine Odor Normal None Comment multiple voids empited another 1000cc from night auditor Voiding Methods Toilet Toilet Toilet Data Completed and Pending Completed studies during hospitalization [Text1]: Exam(s) XR PORTABLE CHEST AP EXAM:? XR PORTABLE CHEST AP CLINICAL HISTORY: ? nausea,chills. ? TECHNIQUE:? 2D digital imaging was performed. COMPARISON:? Prior chest x-ray September 2017 FINDINGS: Heart size is normal.? The mediastinum is not widened. Lungs are clear.? No infiltrates nor obvious pleural effusions. Exam(s) US RENAL EXAM:? US RENAL CLINICAL HISTORY:? edema around right kidney, ? pyelo vs renal thromb TECHNIQUE:? Ultrasound of both kidneys? performed using standard protocol. COMPARISON:? US US ECHOCARDIOGRAM from 09/11/2020 FINDINGS: RIGHT KIDNEY: Measures 13.4 cm in length. There is an exophytic cyst off the inferior pole of the right kidney measuring 2 x 2.1 cm.? Is also a 1.6 x 1.3 cm cyst in the superior pole of the right kidney.? Normal cortical thickness and corticomedullary differentiation. No intrarenal calculi nor hydronephrosis. LEFT KIDNEY: Measures 12.7 cm in length.? Small 8 x 7 millimeter midpole level cyst.? No other focal left kidney findings.? Normal cortical thickness and corticomedullary differentiaion.? No solids masses. No intrarenal calculi nor hydonephrosis. URINARY BLADDER: Prevoid volume is 298 cc Postvoid volume is 5 cc No evidence of bladder mass nor diverticuli. Ureterovesical jets: Both identified and appear symmetrical IMPRESSION: 1.? Small bilateral renal cysts.? No solid renal masses.? No calculi nor hydronephrosis. 2.? Incidentally noted are multiple gallbladder polyps.? Largest measures 7 millimeters. : 1965 Age: 55 ? Exam(s) a CT:CT abdomen & pelvis wo Exam(s) CT ABDOMEN ? PELVIS WO EXAM: ? CT ABDOMEN ? PELVIS WO CLINICAL HISTORY: ? abdominal pain, sepsis, uti, elevated creatinine. ? TECHNIQUE:? Imaging Protocol: Axial computed tomography images with coronal and sagittal reformatted images were created and reviewed CONTRAST MATERIAL:? Intravenous: none Oral: None COMPARISON:? No exams were available for comparison FINDINGS: VISUALIZED LUNG BASES: No nodules nor pleural effusions evident.? ABDOMEN: There is no ascites. LIVER: There is slightly prominent in size.? There is no obvious hepatic mass evident on this noninfused study.? GALLBLADDER/BILIARY: Multiple small calculi are seen within the gallbladder lumen.? There is no gallbladder wall edema nor pericholecystic fluid.? CBD is not dilated. PANCREAS: No evidence of pancreatic mass nor dilatation of the pancreatic duct.? SPLEEN: Spleen size upper normal. ADRENALS: There is a 2 centimeter nodule at the genu of the right adrenal gland.? The left adrenal gland is unremarkable. KIDNEYS:There is a 1.8 x 1.6 cm exophytic cyst the lower pole level of the right kidney.? There is also a 1.1 x 1.1 cm probable cyst off the superior pole the right kidney.? There is a tiny 1 millimeter nonobstructive calculus in the right kidney.? No hydronephrosis nor hydroureter on either side.? There is some perinephric streaking bilaterally but more so around the right kidney.? Possibly related to infection.? There is no obvious hydronephrosis.. ABDOMINAL AORTA: Abdominal aorta is not enlarged. LYMPH NODES: There is no retroperitoneal nor paraaortic adenopathy. ABDOMINAL WALL: No evidence of anterior abdominal hernia but there is relatively symmetrical thickening of the skin and subcutaneous tissues over both sides of the abdomen without a drainable fluid collection.? Correlation with clinical findings recommended.? Probable cellulitis.? No findings at the level of the umbilicus and subumbilical region of the anterior abdominal wall. GI: There is no evidence of bowel obstruction, free air, nor abscess. PELVIS:? LYMPH NODES: There is no intrapelvic nor inguinal adenopathy. GI: No evidence of appendicitis.No evidence of sigmoid diverticulitis. URINARY BLADDER: Uniform thickening of the bladder wall, possibly related to under distention or cystitis. REPRODUCTIVE: Prostate gland is not enlarged. OSSEOUS: No significant osseous lesions. IMPRESSION: 1. In addition to small cyst in the right kidney there is perinephric streaking-edema around the right kidney which may be related to infectious etiology such as pyelonephritis.? However, cannot exclude the possibility that this is related to renal vein thrombosis which is difficult to visualize because there was no IV contrast here. 2. Cholelithiasis.? No obvious acute cholecystitis.? Gallbladder is not distended nor edematous.? The biliary tree is not dilated. 3. There is relatively symmetrical abnormal symmetrical thickening of the skin and subcutaneous fat over both sides of the abdomen but without a drainable fluid collection.? Probable infectious etiologies such as cellulitis. Uniform thickening of the urinary bladder wall.? This may be due to under distension but cannot rule out the possibility that this is related to cystitis. Labs on day of discharge: Labs from last 24 hours 02/03/21 02/03/21 07:10 07:10 WBC 8.71 RBC 2.71 L Hgb 8.4 L Hct 25.8 L MCV 95.2 H MCH 31.0 MCHC 32.6 RDW 12.2 Plt Count 180 MPV 9.5 Immature Gran % 0.6 Neutrophils % 76.8 Lymphocytes % 10.3 Monocytes % 10.9 Eosinophils % 1.1 Basophils % 0.3 Nucleated RBC % 0 Absolute Neutrophils 6.68 Absolute Lymphocytes 0.90 L Absolute Monocytes 0.95 H Absolute Eosinophils 0.10 Absolute Basophils 0.03 Sodium 135 L Potassium 4.4 Chloride 102 Carbon Dioxide 24.3 Anion Gap 8.7 BUN 31 H Creatinine 1.8 H Estimated GFR/1.73 m2 39.67 Glucose 86 Calcium 8.6 Magnesium 2.0 Preliminary micro results at discharge 02/01/21 14:02 Urine Culture - Preliminary Urine - Reflex from Ua Gram Negative Spike Gram Negative Spike#2 02/01/21 19:05 Blood Culture - Preliminary Blood NO GROWTH 24 HOURS 02/01/21 18:56 Blood Culture - Preliminary Blood NO GROWTH 24 HOURS [facility] Medical History (Updated 02/03/21 @ 11:47 by Ninoska Manley NP) CKD (chronic kidney disease) stage 3, GFR 30-59 ml/min Diastolic heart failure Glaucoma, bilateral Gout Hyperlipidemia Hypertension Insulin dependent type 2 diabetes mellitus Joint stiffness Morbid obesity Obstructive sleep apnea noncompliant with CPAP; sleep study at [facility] Proteinuria Retinal detachment, left Retinal lattice degeneration Surgical History (Updated 02/01/21 @ 23:37 by Zeenat Rodríguez MD) H/O eye surgery Left retinal detachment S/P colonoscopy (~10/31/18) Social History Smoking/Tobacco Use Status: Never Smoking risk assessment performed?: Yes Alcohol Intake: never Drug use: Never Current gender identity: male Do you feel safe at home: Yes Do you feel safe in your relationship?: Yes
[2021-02-03 12:54] LABS: C-Reactive Protein 13.33 mg/dL (0.0-0.3)
[2021-02-03 13:15] LABS: Procalcitonin 0.4 ng/mL
--- NOTE | 2021-02-03 13:30 | W.INDIABCONS ---
Date of service: 02/03/21 Time of Service: 13:31 Diabetes Inpatient Consult DESCRIPTION/ASSESSMENT: 55 year old male admitted with hyperkalemia, UTI with pyelonephritis. PMH: IDDM, HTN, morbid obesity, CHF. Most recent A1C: 7.8% indicates moderately elevated blood sugars. Met with Johnson today to provide diabetes education. Johnson reports he does not need additional information at this time. Following diabetic diet with adequate intake. Not at nutritional risk. INTERVENTION: Declined diabetes education PLAN: provided contact information if wants diabetes education in future. will continue to follow. Time Spent in Nutritional Counseling and Treatment: 5
--- NOTE | 2021-02-03 13:34 | PDOC.CMDIS ---
- If Service Date Differs Date of service: 02/03/21 Time of Service: 13:34 LACE Index Scoring Tool - Questions: Length of Stay (in days): 2 Acuity (Admit via E.D.?): Yes Comorbidities: Diabetes w/o Complication, Mild Liver/Renal Disease E.D. Visits: 2 - Answers: Total Score: 10 Risk of Readmission: High Risk Care Management Discharge Reason for Hospitalization: sepsis Discharge Plan: Johnson will return home with no additional services at this time. He will transport via private vehicle, driven by himself. He will follow up with his PCP and discharge plan of care. Patient/Family Education Needs: Review discharge instructions regarding activity levels and medications, discussion of self care needs including ask me three.
[2021-02-03] MEDS: levoFLOXacin 500 MG, levoFLOXacin 250 MG 750 MG PO (13:38)
== END 2021-02-03 14:00 | disposition home or self-care (01) ==
LOC: ER 18:52 → MS 19:44
PROVIDERS: Nurse Practitioner Family; Physician Assistant; Admitting Provider Internal Medicine; Emergency Provider Physician Assistant; PCP Nurse Practitioner Family; Visit Provider Internal Medicine
DX: N10 Acute pyelonephritis (principal); R33.9 Retention of urine, unspecified; E11.22 Type 2 diabetes mellitus with diabetic chronic kidney disease; N18.30 Chronic kidney disease, stage 3 unspecified; G47.33 Obstructive sleep apnea (adult) (pediatric); E87.5 Hyperkalemia; I50.30 Unspecified diastolic (congestive) heart failure; I13.0 Hypertensive heart and chronic kidney disease with heart failure and stage 1 through stage 4 chronic kidney disease, or unspecified chronic kidney disease; E78.5 Hyperlipidemia, unspecified; Z68.42 Body mass index [BMI] 45.0-49.9, adult; H40.89 Other specified glaucoma; M10.9 Gout, unspecified; Z20.822 Contact with and (suspected) exposure to COVID-19; E66.01 Morbid (severe) obesity due to excess calories; H35.9 Unspecified retinal disorder; R11.0 Nausea; Z79.4 Long term (current) use of insulin; Z91.19 Patient's noncompliance with other medical treatment and regimen; B96.20 Unspecified Escherichia coli [E. coli] as the cause of diseases classified elsewhere
CPT/HCPCS: 36415; 76770; 80048; 80053; 80307; 84145; 87040; 87077; 87635; 93005; 96361; 96365; 96375; 99285; 71045; 74176; 81003; 81015; 82607; 82728; 82746; 83540; 83550; 83605; 83735; 84132; 84443; 84484; 84550; 85025; 85379; 85610; 85730; 86140; 87086; 87186; 93010; 99217; 99220; 99225; G0378; J0696; J1650; J2405

== ENCOUNTER 2021-02-11 14:47 | Outpatient (REF) | payer BC, SELFPAY ==
[2021-02-11 15:49] LABS: HCT 28.6 % (40.0-50.0); HGB 9.5 g/dL (13.5-17.5); MCHC 33.2 % (32.0-36.0); MCV 93.5 fL (80-95); MPV 9.5 fL (8.0-11.0); Platelet Count 271 10^3/uL (130-400); RBC 3.06 10^6/uL (4.36-5.78); RDW 12.9 % (11.8-14.1); RDW-SD 43.6 fL; WBC 5.55 10^3/uL (4.4-10.8)
[2021-02-11 16:23] LABS: Iron 81 ug/dL (65-175); Total Iron Binding Capacity 236 ug/dL (250-450); Transferrin Sat 34 % (20-55)
[2021-02-11 16:42] LABS: Anion Gap 11.5 mmol/L (3-11); CO2 22.5 mmol/L (21.0-32.0); CREATININE 1.6 mg/dL (0.70-1.30); Chloride 107 mmol/L (98-107); Estimated GFR 45.44 (mL/min/1.73m2); Ferritin 289 ng/mL (26-388); Glucose 88 mg/dL (74-106); Potassium 4.7 mmol/L (3.5-5.1); Sodium 141 mmol/L (136-145)
[2021-02-11 16:50] LABS: BUN 44 mg/dL (7-18)
== END 2021-02-11 14:48 | disposition home or self-care (01) ==
LOC: NCHCN 14:47
PROVIDERS: PCP Nurse Practitioner Family; Visit Provider Nurse Practitioner Family
DX: D64.9 Anemia, unspecified (principal); N18.30 Chronic kidney disease, stage 3 unspecified; E87.5 Hyperkalemia
CPT/HCPCS: 80048; 85027; 82728; 83540; 83550

== ENCOUNTER 2021-05-29 17:05 | Outpatient (REF) | payer MEDICAID, SELFPAY ==
[2021-05-29 19:52] LABS: HCT 33.2 % (40.0-50.0); HGB 11.2 g/dL (13.5-17.5); MCH 31.7 pg (27.0-33.0); MCHC 33.7 % (32.0-36.0); MCV 94.1 fL (80-95); MPV 10.8 fL (8.0-11.0); Platelet Count 206 10^3/uL (130-400); RBC 3.53 10^6/uL (4.36-5.78); RDW 13.2 % (11.8-14.1); RDW-SD 44.7 fL; WBC 6.28 10^3/uL (4.4-10.8)
[2021-05-29 20:51] LABS: Anion Gap 9.9 mmol/L (3-11); BUN 37 mg/dL (7-18); CO2 24.1 mmol/L (21.0-32.0); CREATININE 1.4 mg/dL (0.70-1.30); Calcium 8.6 mg/dL (8.5-10.1); Chloride 105 mmol/L (98-107); Estimated GFR 53.01 (mL/min/1.73m2); Glucose 153 mg/dL (74-106); Potassium 4.4 mmol/L (3.5-5.1); Sodium 139 mmol/L (136-145)
== END 2021-05-29 17:06 | disposition home or self-care (01) ==
LOC: NCHCN 17:05
PROVIDERS: PCP Nurse Practitioner Family; Visit Provider Nurse Practitioner Family
DX: N18.30 Chronic kidney disease, stage 3 unspecified (principal); Z86.2 Personal history of diseases of the blood and blood-forming organs and certain disorders involving the immune mechanism
CPT/HCPCS: 80048; 85027

== ENCOUNTER 2022-03-27 14:58 | Outpatient (REF) | payer MEDICAID, SELFPAY ==
[2022-03-27 15:48] LABS: Anion Gap 10.7 mmol/L (3-11); BUN 74 mg/dL (7-18); CO2 23.3 mmol/L (21.0-32.0); CREATININE 1.9 mg/dL (0.70-1.30); Calcium 8.7 mg/dL (8.5-10.1); Chloride 98 mmol/L (98-107); Cholesterol 253 mg/dL (<200); Estimated GFR 37.13 (mL/min/1.73m2); Glucose 306 mg/dL (74-106); HDL Cholesterol 32 mg/dL (40-60); Potassium 4.8 mmol/L (3.5-5.1); Sodium 132 mmol/L (136-145)
[2022-03-27 15:53] LABS: Triglyceride 1158 mg/dL (<150)
[2022-03-27 16:19] LABS: LDL CHOLESTEROL 49 mg/dL (<100)
== END 2022-03-27 14:59 | disposition home or self-care (01) ==
LOC: NCHCN 14:58
PROVIDERS: PCP Nurse Practitioner Family; Visit Provider Nurse Practitioner Family
DX: E78.5 Hyperlipidemia, unspecified (principal)
CPT/HCPCS: 80048; 80061; 83721

== ENCOUNTER 2022-09-17 17:12 | Outpatient (REF) | payer MEDICAID, SELFPAY ==
[2022-09-17 17:17] LABS: ALT 36 U/L (16-63); Albumin 3.4 g/dL (3.4-5.0); Alkaline Phosphatase 112 U/L (46-116); Anion Gap 9.8 mmol/L (3-11); BUN 61 mg/dL (7-18); Bilirubin, Total 0.2 mg/dL (0.2-1.0); CO2 22.2 mmol/L (21.0-32.0); CREATININE 1.9 mg/dL (0.70-1.30); Calcium 8.7 mg/dL (8.5-10.1); Chloride 102 mmol/L (98-107); Cholesterol 173 mg/dL (<200); Estimated GFR 41.14 (mL/min/1.73m2); Glucose 233 mg/dL (74-106); HDL Cholesterol 36 mg/dL (40-60); Potassium 4.9 mmol/L (3.5-5.1); Sodium 134 mmol/L (136-145); Total Protein 7.5 g/dL (6.4-8.2); Triglyceride 845 mg/dL (<150)
[2022-09-17 17:29] LABS: AST 19 U/L (15-37)
[2022-09-17 17:42] LABS: LDL CHOLESTEROL 36 mg/dL (<100)
== END 2022-09-17 17:13 | disposition home or self-care (01) ==
LOC: NCHCN 17:12
PROVIDERS: PCP Nurse Practitioner Family; Visit Provider Nurse Practitioner Family
DX: I10 Essential (primary) hypertension (principal); N18.30 Chronic kidney disease, stage 3 unspecified; Z00.00 Encounter for general adult medical examination without abnormal findings; E78.5 Hyperlipidemia, unspecified; E78.1 Pure hyperglyceridemia
CPT/HCPCS: 80053; 80061; 83721

== ENCOUNTER 2022-10-13 03:37 | Outpatient (CLI) | payer MEDICAID, SELFPAY ==
--- NOTE | 2022-10-13 13:00 | NS.NUTBLAN_ITS ---
Johnson was referred for diabetes self management education. He is motivated to improve his Dm as he has 2 adult special need kids and he realizes that his insulin dosage as at its all time high and will soon max out on doses. 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 Most recent A1C: 8.5%, up from 8.0% last year. elevated triglycerides (845 mg/dl 09/24/22- just started new med for this). At very high risk for CVA, CAD. PMH: Dm2, CKD3, HTN, HLD, GOUT, obesity 5'7 316 lbs BMI: 49 Diet Recall: B: 2 eggo waffles with 2 eggs, L: noodles, D: 6 inch sub with fried shrimp on side, only drinks diet soda. Does not exercise due to back pain and time. DM meds: 90 u lantus q AM, 40 units humalog with meals, 70 units NPH at hs, 1000 mg meformin BID, 3 mg trulicity q week, 300 mg invokana qd- on 1.7 units insulin per kg. Johnson typically checks his blood sugars in morning. reports no values greater than 250 mg/dl. Has hypoglycemic awareness- occurs regularly, requires him to eat candy or regular soda to correct. Used to have a CGM but did not work well and often fell off. Session today focused on making changes to his daily intake of carbohydrates and reducing carb load to no more than 100 grams daily. Unclear why he is taking NPH as will increase risk for hypoglycemia and weight gain. Goal: reduce intake of carbohydrate, reduce insulin, improve A1C, lose 10% of weight in next 6 months. Plan: Recommend reduce NPH to 35 units daily to avoid hypoglycemia when reducing carb intake to 100 grams daily. Recommend getting prescription for Dexcom G6 from PCP and bring it to next appointment for programming and placement. Will follow up by phone in 1 week to schedule follow up.
== END 2022-10-13 03:38 | disposition home or self-care (01) ==
LOC: DS 03:37
PROVIDERS: PCP Nurse Practitioner Family; Visit Provider Dietitian, Registered
DX: E11.9 Type 2 diabetes mellitus without complications (principal); Z79.4 Long term (current) use of insulin; Z71.3 Dietary counseling and surveillance
CPT/HCPCS: 97802

== ENCOUNTER 2023-01-18 15:49 | Emergency (ER) | payer MEDICAID, SELFPAY ==
[2023-01-18 15:54] VITALS: BP 137/52; PULSE 90; RESP 20; TEMP 36.8; O2SAT 100
[2023-01-18 18:11] VITALS: BP 118/72; PULSE 90; RESP 20; TEMP 36.4; O2SAT 93
--- NOTE | 2023-01-18 18:16 | W.ED.GENAD ---
Discharge Plan Disposition Patient Disposition: Home Discharge Details Clinical Impression: Pneumonia, Creatinine elevation Primary Care Provider: Fly Mace ED Provider: Katherin Rodriges Home Meds and New Rx's Prescriptions: Continued Trulicity 1.5 mg/0.5 mL pen injector 3 mg SC QWEEK insulin glargine [Lantus Solostar U-100 Insulin] 100 unit/mL (3 mL) insulin pen 90 unit subcut QAM insulin lispro [Humalog U-100 Insulin] 100 unit/mL solution 40 unit subcut QAC aspirin 325 MG tablet 162 mg PO DAILY chlorthalidone 25 MG tablet 50 mg PO DAILY lisinopril 40 MG tablet 40 mg PO DAILY atorvastatin [Lipitor] 40 MG tablet 40 mg PO DAILY labetalol 100 MG tablet 100 mg PO BID Novolin N NPH U-100 Insulin 100 unit/mL suspension 70 unit SUBCUT HS Patient Comments: INJECT 70 UNITS SUBCUTANEOUSLY IN THE EVENING No Action cholecalciferol (vitamin D3) 1,000 unit capsule 1,000 unit PO DAILY ezetimibe 10 mg tablet 10 mg PO DAILY indomethacin 50 mg capsule 50 mg PO TID PRN Rx Instructions: administer with food or milk allopurinol 100 MG tablet 200 mg PO BID Patient Comments: 08/14/16 has a new insulin pen to replace lantus metformin [Glucophage] 1,000 MG tablet 1,000 mg PO BID betamethasone dipropionate 0.05 % cream 0 applic TOPICAL BID Patient Comments: APPLY CREAM TOPICALLY TO AFFECTED AREA TWICE DAILY DIRECTED spironolactone 50 mg tablet 50 mg PO DAILY Patient Comments: TAKE 1 TABLET BY MOUTH ONCE DAILY Invokana 300 MG tablet 300 mg PO DAILY AM Discharge Instructions Instructions: Pneumonia (ED), Impaired Kidney Function (ED) Additional Instructions: Your BUN and creatinine are elevated today. You do have chronic kidney disease on your past medical history. This seems to be worsening. This may be due to some of the medications that you are taking. Also your liver enzymes are elevated. Please do not take any more Tylenol. Please follow-up with primary care provider within the next 2 to 3 days. You were also placed on care management list to assist you with this. Follow up with primary care provider in 3-5 days. Return to ED sooner if any worsening or concerns. Increase oral fluids. Use the albuterol inhaler 1 to 2 puffs every 4-6 hours as needed. Stand Alone Forms: Work Release Referrals: Silke Lyon [NURSE PRACTITIONER] - 2 days Discharge Data Discharge Date/Time-TO BE ENTERED AT DEPARTURE: 01/18/23 21:54 Medical Decision Making 57-year-old male presents to the ER with a chief complaint of recheck after being seen in [place] for pneumonia. Patient is on Augmentin. He was found to have elevated BUN and creatinine at that time and they wanted to admit him however patient refused at that time. Patient is in between PCPs at this time. He does have a past medical history of hypertension, insulin-dependent diabetes, obstructive sleep apnea, chronic kidney disease stage III. He reports decreased urine output. CBC CMP urinalysis ordered. CBC shows anemia hemoglobin 8.2 hematocrit 24.9, sodium 133, BUN 74 creatinine 2.6 GFR is 28.24, glucose 164 AST 99 ALT 122 alk phos 316 urinalysis shows greater than 300 protein small blood 3-5 RBCs no evidence of UTI. CT abdomen pelvis results noted below. Discussed results with patient who verbalized understanding. I did place him on the care management list to get a follow-up appointment with PCP in the next 2 to 3 days. I do suspect that the labs could be or the result of the medications such as allopurinol patient does endorse taking a lot of Tylenol over the last couple weeks. He verbalized understanding. Patient is a diabetic. This does not appear to be acute. No evidence of GI bleed per patient report. This text was generated using [employer] system, please disregard any oddities of phrase or misspellings. Medical Records Medical records reviewed: Yes I reviewed the patient's medical records. Imaging Data Radiologic Study: Imaging: CT Scan Radiologist's impression: IMPRESSION: 1. Large pleural based mass in the medial right lung adjacent to the mediastinum. 2. Nodular density in the right upper lobe. 3. Airspace consolidation in the right lung base. This in part appears to represent atelectasis but additional pneumonia is not excluded. There is accompanying pleural effusion Radiologic Study #2: Imaging: CT Scan Radiologist's impression: IMPRESSION: Cirrhotic appearing liver. Borderline splenomegaly. No ascites. No acute abnormality. Thank you for allowing us to participate in the care of your patient. Dictated and Authenticated by: Noel Tomas MD Lab Data Lab results reviewed: Yes I reviewed the patient's lab results. Labs: Laboratory Tests Range/Units 01/18/23 01/18/23 01/18/23 18:34 18:34 19:00 WBC (4.4-10.8) 10^3/uL 8.49 RBC (4.36-5.78) 10^6/uL 2.70 L Hgb (13.5-17.5) g/dL 8.2 L Hct (40.0-50.0) % 24.9 L MCV (80-95) fL 92 MCH (27.0-33.0) pg 30.4 MCHC (32.0-36.0) % 32.9 RDW (11.8-14.1) % 13.0 Plt Count (130-400) 10^3/uL 307 MPV (8.0-11.0) fL 9.1 Immature Gran % 1.1 Neutrophils % 71.0 Lymphocytes % 12.1 Monocytes % 10.2 Eosinophils % 5.1 Basophils % 0.5 Nucleated RBC % (0.0-0.3) % 0.0 Absolute Neutrophils (1.2-6.7) 10^3/uL 6.03 Absolute Lymphocytes (1.2-3.4) 10^3/uL 1.03 L Absolute Monocytes (0.1-0.8) 10^3/uL 0.87 H Absolute Eosinophils (0.0-0.7) 10^3/uL 0.43 Absolute Basophils (0.0-0.2) 10^3/uL 0.04 Sodium (136-145) mmol/L 133 L Potassium (3.5-5.1) mmol/L 4.5 Chloride (98-107) mmol/L 101 Carbon Dioxide (21.0-32.0) mmol/L 22.0 Anion Gap (3-11) mmol/L 10.0 BUN (7-18) mg/dL 74 H Creatinine (0.70-1.30) mg/dL 2.6 H Est GFR (CKD-EPI 2020) (mL/min/1.73m2) 28.24 Glucose (74-106) mg/dL 164 H Calcium (8.5-10.1) mg/dL 9.1 Magnesium (1.8-2.4) mg/dL 2.1 Total Bilirubin (0.2-1.0) mg/dL 0.2 AST (15-37) U/L 99 H ALT (16-63) U/L 122 H Alkaline Phosphatase (46-116) U/L 316 H Total Protein (6.4-8.2) g/dL 7.6 Albumin (3.4-5.0) g/dL 2.0 L Urine Color (Yellow) Yellow Urine Clarity (Clear) Clear Urine pH (5-8) 5.5 Ur Specific [place] (1.005-1.025) >= 1.030 H Urine Protein (Negative) mg/dL >=300 H Urine Ketones (Negative) mg/dL Negative Urine Blood (Negative) Small H Urine Nitrite (Negative) Negative Urine Bilirubin (Negative) Negative Urine Urobilinogen (Up to 0.2) mg/dL 0.2 Ur Leukocyte Esterase (Negative) Negative Urine RBC (0-2) HPF 3-5 H Urine WBC (0-5) HPF 0-2 Ur Epithelial Cells (Negative) HPF Few Urine Crystals (Negative) HPF Negative Urine Bacteria (Negative) HPF Negative Urine Casts (Negative) LPF Negative Urine Mucus (Negative) Moderate Ur Culture Indicated? No Urine Glucose (Negative) mg/dL 500 H HPI General Mode of arrival: ambulatory. Date/Time Provider Initiated Documentation: 01/18/23 15:59. Limitations to Documentation: no limitations. Information obtained by: patient, RN notes reviewed and old records reviewed. HPI Narrative: 57-year-old male presents to the ER with a chief complaint of recheck after being seen in [place] for pneumonia. Patient is on Augmentin. He was found to have elevated BUN and creatinine at that time and they wanted to admit him however patient refused at that time. Patient is in between PCPs at this time. He does have a past medical history of hypertension, insulin-dependent diabetes, obstructive sleep apnea, chronic kidney disease stage III. He reports decreased urine output. Related Data Home Medications Medication Instructions Recorded Confirmed allopurinol 100 mg tablet 200 mg PO BID 06/09/13 01/18/23 aspirin 325 mg tablet 162 mg PO DAILY 06/09/13 01/18/23 chlorthalidone 25 mg tablet 50 mg PO DAILY 06/09/13 01/18/23 lisinopril 40 mg tablet 40 mg PO DAILY 06/09/13 01/18/23 metformin 1,000 mg tablet 1,000 mg PO BID 06/09/13 01/18/23 (Glucophage) canagliflozin 300 mg tablet 300 mg PO DAILY AM 08/14/16 01/18/23 (Invokana) atorvastatin 40 mg tablet (Lipitor) 40 mg PO DAILY 10/12/17 01/18/23 labetalol 100 mg tablet 100 mg PO BID 10/12/17 01/18/23 cholecalciferol (vitamin D3) 25 1,000 unit PO DAILY 10/10/18 01/18/23 mcg (1,000 unit) capsule betamethasone dipropionate 0.05 % 0 applic topical BID 02/02/21 01/18/23 topical cream insulin NPH isoph U-100 human 100 70 unit subcut HS 02/02/21 01/18/23 unit/mL subcutaneous suspension (Novolin N NPH U-100 Insulin isophane) spironolactone 50 mg tablet 50 mg PO DAILY 02/02/21 01/18/23 insulin glargine 100 unit/mL (3 90 unit subcut QAM 02/05/22 01/18/23 mL) subcutaneous pen (Lantus Solostar U-100 Insulin) ezetimibe 10 mg tablet 10 mg PO DAILY 10/01/22 01/18/23 dulaglutide 1.5 mg/0.5 mL 3 mg subcut QWEEK 10/06/22 01/18/23 subcutaneous pen injector (Trulicity) insulin lispro 100 unit/mL 40 unit subcut QAC 10/06/22 01/18/23 subcutaneous solution (Humalog U-100 Insulin) indomethacin 50 mg capsule 50 mg PO TID PRN 12/15/22 01/18/23 Allergies Allergy/AdvReac Type Severity Reaction Status Date / Time pollen extracts Allergy Verified 10/06/22 12:44 General Stated Complaint: GenMedical NOEMI: 3 Review of Systems All systems reviewed & are unremarkable except as noted in HPI and below Respiratory Respiratory: Reports as per HPI and Reports cough Genitourinary Genitourinary: Reports flank pain and Reports urinary hesitancy PFSH All Active Problems (Updated 01/18/23 @ 21:34 by Katherin Rodriges NP) Pneumonia (Acute) Creatinine elevation (Acute) Obstructive sleep apnea (Chronic) noncompliant with CPAP[place] [facility] [place]pertension (Chronic) 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) Encounter for screening colonoscopy (Acute) S/P colonoscopy (Acute ~10/31/18) Right lateral epicondylitis (Chronic) Left lateral epicondylitis (Chronic) Tinnitus, bilateral (Acute) Sensorineural hearing loss of combined sites, bilateral (Acute) Acute UTI (Acute) CKD (chronic kidney disease) stage 3, GFR 30-59 ml/min (Chronic) DVT prophylaxis (Acute) Discharge planning issues (Acute) Cubital tunnel syndrome on right (Acute) Right carpal tunnel syndrome (Acute) Medical History Anemia Decreased hearing Diastolic heart failure Glaucoma, bilateral Gout Hand paresthesia Headache History of blood transfusion Hyperlipidemia Hypertriglyceridemia Joint stiffness Lateral epicondylitis of both elbows Leg edema Morbid obesity Muscle cramps Proteinuria Retinal detachment Retinal detachment, left Retinal lattice degeneration Tinnitus aurium Type 2 diabetes mellitus Venous stasis dermatitis Vitreous floaters Surgical History H/O eye surgery Left retinal detachment Social History Smoking/Tobacco Use Status: Never Smoking risk assessment performed?: Yes Alcohol Intake: never Drug use: Never Current gender identity: male Do you feel safe at home: Yes Do you feel safe in your relationship?: Yes Exam Narrative Exam Narrative: Constitutional: Alert and oriented x3. Appears stated age. Obese body habitus. Head: Normocephalic, no trauma. Eyes: Pupils PERRL, Red reflex noted, EOM's intact. Eyelids symmetrical without lesions, discharge, or swelling. ENT: Bilateral TM's WNL, External ear normal to inspection, no mastoid TTP, swelling, or erythema, Nasal turbinates WNL, no nasal discharge. Normal dentition, Posterior pharynx WNL, no exudate. Chest: RRR, Normal S1, S2, distal pulses intact. Resp: Lungs clear to auscultation bilaterally, no wheezes, rales, or rhonchi. Abdomen: Soft, non-distended, Normoactive bowel sounds all 4 quads. Musculoskeletal: Normal gait, 5/5 strength to all four extremities. Skin: No suspicious rashes or lesions. Capillary refill less than 2 sec. Neurologic: Cranial nerves II-XII intact. Alert and oriented x 3. Motor: No deficits noted. Sensory: Intact bilaterally all 4 extremities. Reflexes: DTR's intact bilaterally.. Hematologic/Lymphatic: No ecchymosis, no lymphadenopathy. Course Vital Signs Vital signs: Vital Signs Temperature 36.8 C 01/18/23 15:54 Pulse 90 01/18/23 15:54 Respiratory Rate 20 01/18/23 15:54 Blood Pressure 137/52 L 01/18/23 15:54 Pulse Oximetry 100 01/18/23 15:54 Temperature 36.4 C L 01/18/23 18:11 Temperature Source Temporal Artery Scan 01/18/23 18:11 Pulse 90 01/18/23 18:11 Respiratory Rate 20 01/18/23 18:11 Respiratory Effort Normal, Non-Labored 01/18/23 16:04 Blood Pressure 118/72 01/18/23 18:11 Blood Pressure Position Supine 01/18/23 15:54 Pulse Oximetry 93 01/18/23 18:11 Oxygen Delivery Method Room Air 01/18/23 18:11 Oxygen Flow Rate 0 01/18/23 18:11 Pain Level 0 01/18/23 15:54
[2023-01-18 18:41] LABS: Abs Immature Grans 0.09 10^3/uL (0.0-0.06); Absolute Basophil Count 0.04 10^3/uL (0.0-0.2); Absolute Eosinophil Count 0.43 10^3/uL (0.0-0.7); Absolute Lymphocyte Count 1.03 10^3/uL (1.2-3.4); Absolute Monocyte Count 0.87 10^3/uL (0.1-0.8); Absolute Neutrophil Count 6.03 10^3/uL (1.2-6.7); Basophils % 0.5; Eosinophils % 5.1; HCT 24.9 % (40.0-50.0); HGB 8.2 g/dL (13.5-17.5); Immature Grans % 1.1; Lymphocytes % 12.1; MCH 30.4 pg (27.0-33.0); MCHC 32.9 % (32.0-36.0); MCV 92 fL (80-95); MPV 9.1 fL (8.0-11.0); Monocytes % 10.2; Platelet Count 307 10^3/uL (130-400); RDW-SD 43.8 fL; WBC 8.49 10^3/uL (4.4-10.8)
[2023-01-18 18:54] LABS: ALT 122 U/L (16-63); AST 99 U/L (15-37); Alkaline Phosphatase 316 U/L (46-116); BUN 74 mg/dL (7-18); Bilirubin, Total 0.2 mg/dL (0.2-1.0); CREATININE 2.6 mg/dL (0.70-1.30); Calcium 9.1 mg/dL (8.5-10.1); Chloride 101 mmol/L (98-107); Estimated GFR 28.24 (mL/min/1.73m2); Glucose 164 mg/dL (74-106); Magnesium 2.1 mg/dL (1.8-2.4); Potassium 4.5 mmol/L (3.5-5.1); Sodium 133 mmol/L (136-145); Total Protein 7.6 g/dL (6.4-8.2)
--- NOTE | 2023-01-18 19:00 | DI.CT_ITS ---
Exam(s) CT CHEST/ABD/PEL WO EXAM: CT CHEST/ABD/PEL WO CLINICAL HISTORY: Cough, Right Flank Pain. TECHNIQUE: Imaging Protocol: Axial computed tomography images with coronal and sagittal reformatted images were created and reviewed CONTRAST MATERIAL: Intravenous: none Oral: None COMPARISON: CR,XR XR PORTABLE CHEST AP from 02/01/[address] ABDOMEN PELVIS WO from 02/01/2021 FINDINGS: CHEST: LUNGS: In the right lung apex there is a 1.2 by 0.6 cm slightly spiculated nodule evident.. Lower do wn there is significant infiltrate in the right lower lobe which is associated with small pleural eff usion which appears loculated. There is also soft tissue density intimately associated with the righ t heart border-pericardium and exhibiting fluid density. There is also some loculated pleural fluid anteriorly in the right lung base, also not associated with overlying rib destruction. Right hemidia phragm is elevated. The opposite-left lung is clear and there is no pleural effusion on the left side. No significant focal findings in the trachea and mainstem bronchi. MEDIASTINUM: There is no adenopathy in the anterior mediastinal fat. Some enlarged lymph nodes are n oted in the right hilar region. CARDIAC: Heart size normal. No pericardial effusion although there mass density associated with the right side of the heart border as described above. This measures 9 cm AP x 2.3 cm wide.Caliber of th e thoracic aorta is within normal limits. OSSEOUS: No significant osseous lesions.No fractures.. ABDOMEN: There is no ascites. LIVER: Enlarged and cirrhotic appearing and hypodense implying steatosis. No obvious mass evident in the liver on this non few study. GALLBLADDER/BILIARY: Small gallstones noted. No gallbladder wall edema. CBD is not dilated. PANCREAS: No evidence of obvious pancreatic mass nor dilatation of the pancreatic duct. SPLEEN: Upper normal size. No masses. ADRENALS: There is a nodule in the right adrenal gland which measures to by 2 cm, unchanged from CT s can of January 2021. Probable adenoma. Left adrenal gland remains unremarkable. KIDNEYS: No calculi nor hydronephrosis. No obvious solid renal masses. Small benign exophytic cyst of f the lateral aspect inferior pole left kidney again noted, measuring 1.3 cm, slightly increased in s ize but not requiring further study. There is also a similar size hemorrhagic cyst off the superior aspect of the right kidney which is uniformly hyperdense. ABDOMINAL AORTA: Abdominal aorta is not enlarged. LYMPH NODES: There is no retroperitoneal nor para-aortic adenopathy. ABDOMINAL WALL/GI: No evidence of significant anterior abdominal hernia but again noted is relatively symmetrical subcutaneous density over lateral aspect of the anterior wall of the abdomen bilaterally , not associated with drainable fluid collections. Possibly related to multiple injections. No evidence of bowel obstruction. There are colonic diverticuli noted. No evidence of diverticulitis. These diverticuli are predomina tely right-sided in the colon. There is no sigmoid diverticulosis. PELVIS: LYMPH NODES: There is no intrapelvic nor inguinal adenopathy. GI: No evidence of appendicitis.No evidence of sigmoid diverticulitis. URINARY BLADDER: Mild uniform wall thickening. REPRODUCTIVE: Mild prostate enlargement. Seminal vesicles unremarkable. OSSEOUS: No significant osseous lesions. Partial ankylosis of the sacroiliac joints. No fractures. No lytic osseous lesions evident. IMPRESSION: 1. There is mass density contiguous with the right heart border-right middle lobe region with measure ments as above and appearing to invade the right pericardium. This measures 9 cm AP x 2.3 cm wide by 7 cm craniocaudal. There is also significant infiltrate in the right lower lobe and loculated pleur al fluid as described above. Right hemidiaphragm is elevated. There is some adenopathy in the right hilum. Lungs clear. 2. Enlarged cirrhotic appearing liver. Spleen size upper normal. No ascites evident. 3. Cholelithiasis without evidence of acute cholecystitis nor dilatation biliary tree. 4. Stable 2 cm size nodule in the right adrenal gland unchanged from CT scan of January 2021, 2 years ag o and therefore probably a benign adenoma. The opposite-left adrenal gland is unremarkable. Other findings as above. First read by [facility]. RADIATION DOSE DELIVERED: 2,205.29mGy.cm Total DLP DATA REPOSITORY: All CT scans at this facility are submitted to the National Radiology Data Registry (NRDR) Dose Index Registry (DIR) with the [employer] (ACR). RADIATION OPTIMIZATION: All CT scans at this facility use at least one of these dose optimization te chniques: automated exposure control; mA and/or kV adjustment per patient size (includes targeted exa ms where dose is matched to clinical indication); or iterative reconstruction.
[2023-01-18 19:10] LABS: Bilirubin Negative (Negative); Blood Small (Negative); Clarity Clear (Clear); Glucose 500 mg/dL (Negative); Ketones Negative (Negative); Leukocyte Esterase Negative (Negative); Nitrite Negative (Negative); Specific Gravity >= 1.030 (1.005-1.025); Urobilinogen 0.2 mg/dL (Up to 0.2); pH 5.5 (5-8)
[2023-01-18 19:20] LABS: Bacteria Negative HPF (Negative); C & S Indicated? No; Casts Negative LPF (Negative); Crystals Negative HPF (Negative); Epithelial Cells Few HPF (Negative); Mucus Moderate (Negative); WBC 0-2 HPF (0-5)
[2023-01-18] MEDS: Normal Saline 500 ML IV (19:24)
--- NOTE | 2023-01-18 19:56 | NUR.NOTE ---
Referral to Care Management to establish primary care on a week. Diabetes, abnormal liver function test abnormal renal function tests.Nursing Note:
--- NOTE | 2023-01-18 21:17 | DI.VRAD_ITS ---
PROCEDURE INFORMATION: Exam: CT Chest Without Contrast; Diagnostic Exam date and time: 01/18/2023 8:11 PM Age: 57 years old Clinical indication: Other: Cough, right flank pain; Patient HX: Right sided pneumonia recently TECHNIQUE: Imaging protocol: Diagnostic computed tomography of the chest without contrast. Radiation optimization: All CT scans at this facility use at least one of these dose optimization techniques: automated exposure control; mA and/or kV adjustment per patient size (includes targeted exams where dose is matched to clinical indication); or iterative reconstruction. COMPARISON: CR XR PORTABLE CHEST AP 01/02/2021 13:37 FINDINGS: Thyroid: Normal. No significant nodule or enlargement. Trachea: Normal. Lungs: There is a 17 mm lobulated and partly solid mass at the right pulmonary apex. In the right lung base there is dense consolidation with air bronchograms. There appears to be associated volume loss with elevation of the diaphragm. Left lung is clear. Pleural spaces: Small right pleural effusion. There is fluid within the fissure. Adjacent to the mediastinum on the right there is a pleural based mass measuring about 7.8 cm. Heart: No cardiomegaly. No pericardial effusion. Coronary arteries: No significant calcification. Esophagus: No esophageal mass or wall thickening. No hiatal hernia. Mediastinal space: Normal. No mass or adenopathy. Lymph nodes: No enlarged mediastinal or axillary lymph nodes. Vasculature: Unremarkable. No aortic aneurysm. Bones/joints: Unremarkable. No acute fracture. Soft tissues: Unremarkable. Other findings: Visualized upper abdomen is unremarkable. IMPRESSION: 1. Large pleural based mass in the medial right lung adjacent to the mediastinum. 2. Nodular density in the right upper lobe. 3. Airspace consolidation in the right lung base. This in part appears to represent atelectasis but additional pneumonia is not excluded. There is accompanying pleural effusion. PROCEDURE INFORMATION: Exam: CT Abdomen And Pelvis Without Contrast Exam date and time: 01/18/2023 8:11 PM Age: 57 years old Clinical indication: Other: Cough, right flank pain; Patient HX: Right sided pneumonia recently TECHNIQUE: Imaging protocol: Computed tomography of the abdomen and pelvis without contrast. Radiation optimization: All CT scans at this facility use at least one of these dose optimization techniques: automated exposure control; mA and/or kV adjustment per patient size (includes targeted exams where dose is matched to clinical indication); or iterative reconstruction. COMPARISON: CT ABDOMEN PELVIS WO 01/02/2021 16:38 FINDINGS: Liver: The liver has a cirrhotic appearance with left lobe prominence and mild surface nodularity. No mass or ductal dilatation. Gallbladder and bile ducts: Small calcified gallstones. No wall thickening. Pancreas: Normal. No mass or ductal dilation. Spleen: Mild enlargement of the spleen with a sagittal diameter of 13.4 cm. Adrenal glands: Normal. No mass. Kidneys and ureters: Normal. No hydronephrosis, calculus, cyst or mass. Stomach and bowel: Unremarkable. No significant dilatation or obstruction. No mucosal thickening or visible mass. Appendix: No evidence of appendicitis. Intraperitoneal space: Unremarkable. No free air. No significant fluid collection. Vasculature: Unremarkable. No abdominal aortic aneurysm or significant atherosclerosis. Lymph nodes: Few shotty retroperitoneal lymph nodes. No significant adenopathy. Urinary bladder: No mass or wall thickening. Reproductive: Unremarkable as visualized. Bones/joints: Unremarkable. No acute fracture. No lytic lesion. Soft tissues: Unremarkable. IMPRESSION: Cirrhotic appearing liver. Borderline splenomegaly. No ascites. No acute abnormality. Dictated and Authenticated by: Noel Tomas MD. Ordering:COLEMAN Pandey MD
[2023-01-18] MEDS: Albuterol HFA 8 GM 60 PUFF INH IH (21:50)
[2023-01-18 21:51] VITALS: BP 132/73; PULSE 90; RESP 20; TEMP 37.7; O2SAT 92
== END 2023-01-18 21:54 | disposition home or self-care (01) ==
PROVIDERS: Emergency Provider Registered Nurse Emergency; PCP Physician Assistant
DX: R06.02 Shortness of breath (principal); R05.9 Cough, unspecified; R07.89 Other chest pain; J18.9 Pneumonia, unspecified organism; R74.8 Abnormal levels of other serum enzymes
CPT/HCPCS: 36415; 71250; 80053; 96360; 96361; 99283; 74176; 81003; 81015; 83735; 85025

== ENCOUNTER 2023-01-19 15:48 | Outpatient (REF) | payer MEDICAID, SELFPAY ==
[2023-01-20 22:57] LABS: Legionella Ag Detection Urine Negative (Negative)
== END 2023-01-19 15:49 | disposition home or self-care (01) ==
LOC: NCHCN 15:48
PROVIDERS: PCP Nurse Practitioner Family; Visit Provider Physician Assistant
DX: R06.02 Shortness of breath (principal); J18.9 Pneumonia, unspecified organism
CPT/HCPCS: 87449

== ENCOUNTER 2023-01-26 13:04 | Outpatient (REF) | payer MEDICAID, SELFPAY ==
[2023-01-26 15:33] LABS: HCT 26.6 % (40.0-50.0); HGB 8.8 g/dL (13.5-17.5); MCHC 33.1 % (32.0-36.0); MCV 94 fL (80-95); Platelet Count 434 10^3/uL (130-400); RBC 2.84 10^6/uL (4.36-5.78); RDW 12.6 % (11.8-14.1); RDW-SD 43.7 fL; WBC 7.63 10^3/uL (4.4-10.8)
[2023-01-26 16:08] LABS: Anion Gap 10.8 mmol/L (3-11); BUN 59 mg/dL (7-18); CO2 20.2 mmol/L (21.0-32.0); CREATININE 1.8 mg/dL (0.70-1.30); Calcium 8.9 mg/dL (8.5-10.1); Chloride 101 mmol/L (98-107); Glucose 272 mg/dL (74-106); Potassium 5.6 mmol/L (3.5-5.1); Sodium 132 mmol/L (136-145)
[2023-01-26 17:11] LABS: Iron 72 ug/dL (65-175); Total Iron Binding Capacity 238 ug/dL (250-450); Transferrin Sat 30 % (20-55)
== END 2023-01-26 13:05 | disposition home or self-care (01) ==
LOC: NCHCN 13:04
PROVIDERS: PCP Physician Assistant; Visit Provider Physician Assistant
DX: N18.30 Chronic kidney disease, stage 3 unspecified (principal); D64.9 Anemia, unspecified
CPT/HCPCS: 80048; 85027; 83540; 83550

== ENCOUNTER 2023-02-05 02:53 | Outpatient (CLI) | payer MEDICAID, SELFPAY ==
[2023-02-05 16:56] LABS: Procalcitonin < 0.1 ng/mL
[2023-02-05 17:26] LABS: Anion Gap 11.2 mmol/L (3-11); BUN 58 mg/dL (7-18); CO2 22.8 mmol/L (21.0-32.0); Calcium 8.7 mg/dL (8.5-10.1); Chloride 103 mmol/L (98-107); Estimated GFR 38.69 (mL/min/1.73m2); Glucose 203 mg/dL (74-106); Sodium 137 mmol/L (136-145)
[2023-02-05 18:24] LABS: LDH 168 U/L (85-227); TSH (W/Ref FT4) 1.74 uIU/mL (0.36-3.74)
[2023-02-05 22:23] LABS: Rheumatoid Factor <8.6 IU/mL (<12.0)
[2023-02-08 10:01] LABS: Cyclic Citrullinated Peptide <2.5 U/mL (<5.0)
[2023-02-08 11:36] LABS: AFP Tumor Marker <2.5 ng/mL (<8.1)
[2023-02-08 11:43] LABS: Myeloperoxidase Ab IgG <0.2 U; Proteinase 3 Ab (PR3) <0.2 U
[2023-02-08 13:10] LABS: Beta-HCG, Quant, Tumor Marker <0.6 IU/L (<1.4)
[2023-02-08 15:16] LABS: ANA Interpretation Negative (Negative)
[2023-02-08 15:58] LABS: Leukemia/Lymphoma by FC (Blood (See below)
[2023-02-09 13:38] LABS: Fungitell Qualitative Negative (Negative); Fungitell Quantitative Value <31 pg/mL (<60 pg/mL)
[2023-02-10 16:18] LABS: Blastomyces Ag Result Not Detected; Blastomyces Ag Value Not Detected
== END 2023-02-05 02:54 | disposition home or self-care (01) ==
LOC: LBO 02:53
PROVIDERS: PCP Physician Assistant; Visit Provider Student in an Organized Health Care Education/Training Program
DX: D49.89 Neoplasm of unspecified behavior of other specified sites (principal); R91.8 Other nonspecific abnormal finding of lung field
CPT/HCPCS: 36415; 80048; 84145; 86200; 87449; 88185; 82105; 83516; 83615; 84443; 84702; 86038; 86431; 87385; 88184; 88189

== ENCOUNTER 2023-03-16 14:15 | Outpatient (REF) | payer MEDICAID, SELFPAY ==
[2023-03-16 20:45] LABS: COMMENT (LAB VIEW ONLY) 74.26 mg/dL
== END 2023-03-16 14:16 | disposition home or self-care (01) ==
LOC: NCHCN 14:15
PROVIDERS: PCP Physician Assistant; Visit Provider Physician Assistant
DX: E10.9 Type 1 diabetes mellitus without complications (principal)
CPT/HCPCS: 82043; 82570

== ENCOUNTER 2023-04-15 11:30 | Outpatient (CLI) | payer MEDICAID, SELFPAY ==
--- NOTE | 2023-04-15 16:03 | DI.RAD_ITS ---
Exam(s) XR WRIST RT COMPLETE EXAM: XR WRIST RT COMPLETE CLINICAL HISTORY: right wrist pain. TECHNIQUE: 2D digital imaging was performed of the right wrist. Three views were obtained. PA, lat eral and oblique views were obtained. COMPARISON: No exams were available for comparison FINDINGS: BONES: No acute fracture is present. No bony destructive lesion is seen. There well corticated osseou s densities seen adjacent to the tip of the ulnar styloid process which appear old. JOINTS: The carpal bones are normally aligned. SOFT TISSUE: Normal. IMPRESSION: No acute abnormality. DATA REPOSITORY: RADIATION DOSE DELIVERED:
== END 2023-04-15 11:31 | disposition home or self-care (01) ==
LOC: DIORS 04-16 13:26
PROVIDERS: PCP Physician Assistant; Referring Provider Physician Assistant; Visit Provider Physician Assistant
DX: M25.531 Pain in right wrist (principal)
CPT/HCPCS: 73110

== ENCOUNTER 2023-04-20 01:45 | Outpatient (CLI) | payer MEDICAID, SELFPAY ==
--- NOTE | 2023-04-20 06:45 | DI.US_ITS ---
Exam(s) US RENAL EXAM: US RENAL CLINICAL HISTORY: right renal cyst seen on pet, N28.1. TECHNIQUE: Toscano scale, color and spectral Doppler were used. COMPARISON: CT CT CHEST/ABD/PEL WO from 01/18/2023 FINDINGS: Exam is limited by patient body habitus. The liver is echogenic, suboptimal window for evaluating th e right kidney. Renal size in cm: Right: Left: Echogenicity: Normal Hydronephrosis: No Cyst or mass: 1.2 centimeter cyst upper pole left kidney. Cyst noted at upper pole of right kidney l ikely too small to visualize on this examination. Findings are consistent with a small hyperdense cy sts. No further follow-up recommended. Nephrolithiasis: No Hepatic steatosis noted. Bladder:Normal . Both ureteral jets were visualized. Prevoid vol:99 Postvoid vol:0 Prostate volume 18 cc. IMPRESSION: Limited exam due to patient body habitus. No suspicious renal masses. Small cyst upper pole left ki dney. No further follow-up recommended. DATA REPOSITORY:
== END 2023-04-20 02:05 ==
LOC: DI 01:47
PROVIDERS: PCP Physician Assistant; Visit Provider Student in an Organized Health Care Education/Training Program
DX: N28.1 Cyst of kidney, acquired (principal)
CPT/HCPCS: 76770

== ENCOUNTER 2023-04-20 11:31 | Outpatient (REF) | payer MEDICAID, SELFPAY ==
[2023-04-20 16:40] LABS: HCT 30.4 % (40.0-50.0); HGB 10.1 g/dL (13.5-17.5); MCH 30.2 pg (27.0-33.0); MCHC 33.2 % (32.0-36.0); MCV 91 fL (80-95); MPV 10.6 fL (8.0-11.0); Platelet Count 175 10^3/uL (130-400); RBC 3.34 10^6/uL (4.36-5.78); RDW 11.9 % (11.8-14.1); RDW-SD 39.9 fL; WBC 5.57 10^3/uL (4.4-10.8)
[2023-04-20 17:13] LABS: Anion Gap 9.4 mmol/L (3-11); BUN 71 mg/dL (7-18); CO2 25.6 mmol/L (21.0-32.0); Calcium 8.8 mg/dL (8.5-10.1); Chloride 101 mmol/L (98-107); Estimated GFR 38.69 (mL/min/1.73m2); Glucose 321 mg/dL (74-106); Potassium 4.7 mmol/L (3.5-5.1); Sodium 136 mmol/L (136-145)
[2023-04-20 17:32] LABS: Vitamin D 25 Total 10.9 ng/mL (30-100)
[2023-04-20 17:34] LABS: PHOSPHORUS 4.7 mg/dL (2.6-4.7)
[2023-04-22 10:09] LABS: Parathyroid Hormone,Intact 135 pg/mL (19-88)
== END 2023-04-20 11:32 | disposition home or self-care (01) ==
LOC: NCHCN 11:31
PROVIDERS: PCP Physician Assistant; Visit Provider Physician Assistant
DX: N18.30 Chronic kidney disease, stage 3 unspecified (principal)
CPT/HCPCS: 80048; 82306; 85027; 83970; 84100

== ENCOUNTER → 2023-05-12 03:47 | Outpatient (CLI) | payer MEDICAID, SELFPAY ==
--- NOTE | 2023-05-12 08:15 | DI.MRI_ITS ---
Exam(s) MR UPPER EXTREMITY RT WO EXAM: MR UPPER EXTREMITY RT WO CLINICAL HISTORY: PAIN, EVAL PISOTRIGUDRAL JOINT, ?CYST,M79.641. TECHNIQUE: Multiplanar multisequence MRI was performed. COMPARISON: None. FINDINGS: BONES: There is no fracture or contusion pattern. JOINTS: The radiocarpal joint is unremarkable. The carpal joints are unremarkable. TENDONS: Flexors: Unremarkable. Extensors: There is mild thickening and intermediate signal seen in the extensor carpi ulnaris tendon . The extensor tendons are otherwise unremarkable. MUSCLES: Unremarkable. MEDIAN NERVE: Unremarkable on this noncontrast examination. ULNAR NERVE: Unremarkable on this noncontrast examination. SOFT TISSUES: There is a 1.1 x 50.4 cm fluid collection associated with the pisotriquetral joint. Th is may represent a ganglion cyst. This is located predominantly proximal to the joint. There is als o fluid collection adjacent to the distal aspect of the of the pisotriquetral joint measuring 5 x 8 m m. It does appear to communicate with the joint and may represent a 2nd ganglion cyst. LIGAMENTS: Unremarkable. TRIANGULAR FIBROCARTILAGE: Unremarkable. OTHER: IMPRESSION: 1. Two cystic lesions adjacent to the pisotriquetral joint likely reflecting ganglion cyst. 2. Thickening and intermediate signal of the extensor carpi ulnaris tendon which may represent tendin osis. DATA REPOSITORY:
== END ==
PROVIDERS: PCP Physician Assistant; Visit Provider Student in an Organized Health Care Education/Training Program
DX: M79.641 Pain in right hand (principal)
CPT/HCPCS: 73218

== ENCOUNTER 2023-06-30 11:12 | Day surgery (SDC) | payer MEDICAID, SELFPAY ==
[2023-06-30] VITALS (9 sets, daily range): BP systolic 117–161; BP diastolic 42–85; PULSE 72–88; RESP 11–25; TEMP 36.3–36.8; O2SAT 95–100; BMI 47.6
[2023-06-30] MEDS: Celecoxib 200 MG CAP 400 MG PO (12:38)
[2023-06-30] MEDS: Acetaminophen 500 MG TAB 1000 MG PO (12:39)
[2023-06-30] MEDS: Lactated Ringers 1,000 ML 80 ML IV (12:55)
--- NOTE | 2023-06-30 12:58 | HPE_ITS ---
Assessment and Plan Assessment and plan (1) Cubital tunnel syndrome on right: Status: Acute Assessment and plan: Johnson is a 57-year-old who has cubital tunnel on the right side. I once again reviewed the procedure with him. I discussed the technical details. I reviewed the risk to include bleeding, infection, pain, stiffness, continued numbness, damage to nerves or vessels, damage to muscle and tendons, numbness of the medial elbow, recurrence, nerve instability, need for repeat procedures. Despite these risk, he elects to proceed. 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 I reviewed this with him. Given that he is here on anesthesia for the right cubital tunnel I did offer pisotriquetral injection. I discussed this with him. He elects to proceed with this as well. History of Present Illness Narrative: Johnson is a 57-year-old have seen for numbness and tingling and weakness and pain about the right upper extremity. He has been diagnosed with cubital tunnel syndrome and is here today for cubital tunnel release. Please see the previous office note for complete detailed history. He also been having some intermittent pain and swelling about the right wrist. MRI was previously performed and shows 2 small cystic structures originate from the pisotriquetral joint but no impingement on the passing ulnar nerve, Guyon's canal, or at the carpal tunnel. He has also requested some treatment for pain from this and therefore I offered an injection about the right pisotriquetral joint. He has had no changes to his health. No chest pain or shortness of breath. 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) Encounter for screening colonoscopy (Acute) S/P colonoscopy (Acute ~10/31/18) Right lateral epicondylitis (Chronic) Left lateral epicondylitis (Chronic) Tinnitus, bilateral (Acute) Sensorineural hearing loss of combined sites, bilateral (Acute) Acute UTI (Acute) CKD (chronic kidney disease) stage 3, GFR 30-59 ml/min (Chronic) DVT prophylaxis (Acute) Discharge planning issues (Acute) Cubital tunnel syndrome on right (Acute) Right carpal tunnel syndrome (Acute) Lung nodule (Acute) SOB (shortness of breath) (Acute) Paresthesia of both hands (Acute) Chronic kidney disease (CKD) (Chronic) Lung mass (Acute) Hemidiaphragm paralysis (Acute) Anterior mediastinal tumor (Acute) Pleural effusion (Acute) Renal cyst (Acute) Right wrist pain (Acute) Medical History Anemia Decreased hearing Diastolic heart failure Pt. denies-states this should have never been in his records Glaucoma, bilateral Gout Hand paresthesia Headache History of blood transfusion pt. denies History of cataract Hyperlipidemia Hypertriglyceridemia Joint stiffness Lateral epicondylitis of both elbows Leg edema Morbid obesity Muscle cramps Proteinuria Retinal detachment Retinal detachment, left Retinal lattice degeneration Tinnitus aurium Type 2 diabetes mellitus Venous stasis dermatitis Vitreous floaters Surgical History H/O eye surgery Left retinal detachment Social History Smoking/Tobacco Use Status: Never Smoking risk assessment performed?: Yes Alcohol Intake: never Drug use: Never Substance use type: does not use Housing: house Current gender identity: male Do you feel safe at home: Yes Do you feel safe in your relationship?: Yes Meds Allergies and Home Medications Allergies Allergy/AdvReac Type Severity Reaction Status Date / Time pollen extracts Allergy Verified 06/30/23 11:51 Home Medications Medication Instructions Recorded Confirmed Type aspirin 325 mg tablet 162 mg PO DAILY 06/09/13 06/30/23 History chlorthalidone 25 mg tablet 50 mg PO DAILY 06/09/13 06/30/23 History lisinopril 40 mg tablet 40 mg PO DAILY 06/09/13 06/30/23 History atorvastatin 40 mg tablet (Lipitor) 40 mg PO DAILY 10/12/17 06/30/23 History labetalol 100 mg tablet 100 mg PO BID 10/12/17 06/30/23 History betamethasone dipropionate 0.05 % 0 applic topical BID 02/02/21 06/30/23 History topical cream spironolactone 50 mg tablet 50 mg PO DAILY 02/02/21 06/30/23 History ezetimibe 10 mg tablet 10 mg PO DAILY 10/01/22 06/30/23 History albuterol sulfate 90 mcg/actuation See Rx Instructions inhalation 01/25/23 06/30/23 History aerosol inhaler .Q4-6H PRN furosemide 20 mg tablet 20 mg PO DAILY 03/15/23 06/30/23 History canagliflozin 300 mg tablet 100 mg PO DAILY AM 03/16/23 06/30/23 History (Invokana) insulin NPH isoph U-100 human 100 50 unit subcut HS 04/15/23 06/30/23 History unit/mL subcutaneous suspension (Novolin N NPH U-100 Insulin isophane) insulin glargine 100 unit/mL (3 20 unit subcut QAM 04/15/23 06/30/23 History mL) subcutaneous pen (Lantus Solostar U-100 Insulin) insulin lispro 100 unit/mL 30 unit subcut QAC 04/15/23 06/30/23 History subcutaneous solution (Humalog U-100 Insulin) cholecalciferol (vitamin D3) 25 2,000 unit PO DAILY 05/07/23 06/30/23 History mcg (1,000 unit) capsule dulaglutide 1.5 mg/0.5 mL 4.5 mg subcut QWEEK 05/07/23 06/30/23 History subcutaneous pen injector (Trulicity) acetaminophen 500 mg tablet 1,000 mg PO Q6H PRN 06/30/23 06/30/23 History (Tylenol Extra Strength) Exam Resp Effort & Inspection: normal respiratory effort Auscultation: clear to auscultation bilaterally Extrem Other: Evaluation of the right upper extremity shows pain to palpation about the pisotriquetral joint. There is pain with compression of the pisiform. Some crepitus with motion of the right pisiform. Decree sensation in the ulnar nerve distribution. Negative Results Imaging Imaging Studies: MRI of the right wrist shows 2 small cystic structures mostly from the dorso medial aspect of the pisotriquetral joint. Some thinning of the cartilage of the pisotriquetral joint. No other suspicious lesions. Last Vital Signs Temp 36.4 C L 06/30/23 12:15 Pulse 88 06/30/23 12:15 Resp 20 06/30/23 12:15 BP 161/84 H 06/30/23 12:15 Pulse Ox 97 06/30/23 12:15
--- NOTE | 2023-06-30 13:22 | W.ANESPRE ---
General Info Date of Service Date Performed: 06/30/23 Height: 5 ft 8 in Weight: 142.2 kg Body Mass Index (BMI): 47.6 Surgical Procedure: Operation Date: 06/30/23 14:10 Proposed Procedure Side Surgeon p RIGHT CUBITAL TUNNEL RELEASE Right Jan Velasquez MD Meds Allergies and Home Medications Allergies Allergy/AdvReac Type Severity Reaction Status Date / Time pollen extracts Allergy Verified 06/30/23 11:51 Home Medication Medication Instructions Recorded aspirin 325 mg tablet 162 mg PO DAILY 06/09/13 chlorthalidone 25 mg tablet 50 mg PO DAILY 06/09/13 lisinopril 40 mg tablet 40 mg PO DAILY 06/09/13 atorvastatin 40 mg tablet (Lipitor) 40 mg PO DAILY 10/12/17 labetalol 100 mg tablet 100 mg PO BID 10/12/17 betamethasone dipropionate 0.05 % 0 applic topical BID 02/02/21 topical cream spironolactone 50 mg tablet 50 mg PO DAILY 02/02/21 ezetimibe 10 mg tablet 10 mg PO DAILY 10/01/22 albuterol sulfate 90 mcg/actuation See Rx Instructions inhalation 01/25/23 aerosol inhaler .Q4-6H PRN furosemide 20 mg tablet 20 mg PO DAILY 03/15/23 canagliflozin 300 mg tablet 100 mg PO DAILY AM 03/16/23 (Invokana) insulin NPH isoph U-100 human 100 50 unit subcut HS 04/15/23 unit/mL subcutaneous suspension (Novolin N NPH U-100 Insulin isophane) insulin glargine 100 unit/mL (3 20 unit subcut QAM 04/15/23 mL) subcutaneous pen (Lantus Solostar U-100 Insulin) insulin lispro 100 unit/mL 30 unit subcut QAC 04/15/23 subcutaneous solution (Humalog U-100 Insulin) cholecalciferol (vitamin D3) 25 2,000 unit PO DAILY 05/07/23 mcg (1,000 unit) capsule dulaglutide 1.5 mg/0.5 mL 4.5 mg subcut QWEEK 05/07/23 [facility] acetaminophen 500 mg tablet 1,000 mg PO TID #90 tabs 06/30/23 hydrocodone 5 mg-acetaminophen 325 1 tab PO Q6H PRN pain #12 tabs 06/30/23 mg tablet ibuprofen 600 mg tablet 600 mg PO TID PRN pain #90 tabs 06/30/23 Current Visit Medications: Current Medications Generic Name Dose Route Start Last Admin Trade Name Mary Lou PRN Reason Stop Dose Admin Acetaminophen 1,000 mg 06/30/23 06:00 06/30/23 12:39 Acetaminophen 500 Mg Tab PO 06/30/23 16:00 1,000 mg PREOP RADHA Administration Celecoxib 400 mg 06/30/23 06:00 06/30/23 12:38 Celecoxib 200 Mg Cap PO 06/30/23 16:00 400 mg PREOP RADHA Administration Ringer's Solution 1,000 mls @ 80 mls/hr 06/30/23 06:00 06/30/23 12:55 IV 07/29/23 23:59 80 mls/hr INFUSION RADHA Administration Cefazolin Sodium 3,000 mg/ 100 mls @ 200 mls/hr 06/30/23 06:00 Sodium Chloride IVPB 06/30/23 16:00 PREOP RADHA IV Miscellaneous Supplies 1 each 06/30/23 06:00 Iv Access IV 07/29/23 23:59 DIRECTED RADHA Sodium Chloride 0 ml 06/30/23 06:00 Normal Saline Flush 10 Ml Syr IV 07/29/23 23:59 PRN PRN Sodium Chloride 0 ml 06/30/23 06:00 Normal Saline 10 Ml Vial IJ 07/29/23 23:59 DIRECTED PRN Sterile Water 0 ml 06/30/23 06:00 Water,Injection,Sterile 10 Ml Vial IJ 07/29/23 23:59 DIRECTED PRN PFSH Active Problems Active Problems: Problem Status Onset Code Arthritis of right wrist M19.031 Obstructive sleep apnea G47.33 Hypertension I10 Insulin dependent type 2 diabetes mellitus E11.9, Z79.4 Encounter for screening colonoscopy Z12.11 S/P colonoscopy ~10/31/18 Z98.890 Right lateral epicondylitis M77.11 Left lateral epicondylitis M77.12 Tinnitus, bilateral H93.13 Sensorineural hearing loss of combined sites, bilateral H90.3 Acute UTI N39.0 Nausea R11.0 Pyelonephritis N12 CKD (chronic kidney disease) stage 3, GFR 30-59 ml/min N18.30 Hyperkalemia E87.5 DVT prophylaxis Z29.9 Discharge planning issues Z02.9 Cubital tunnel syndrome on right G56.21 Right carpal tunnel syndrome G56.01 Lung nodule R91.1 SOB (shortness of breath) R06.02 Paresthesia of both hands R20.2 Chronic kidney disease (CKD) N18.9 Lung mass R91.8 Hemidiaphragm paralysis J98.6 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 denies-states this should have never been in his records Glaucoma, bilateral Gout Hand paresthesia Headache History of blood transfusion pt. denies History of cataract Hyperlipidemia Hypertriglyceridemia Joint stiffness Lateral epicondylitis of both elbows Leg edema Morbid obesity Muscle cramps Proteinuria Retinal detachment Retinal detachment, left Retinal lattice degeneration Tinnitus aurium Type 2 diabetes mellitus Venous stasis dermatitis Vitreous floaters Surgical History Surgical History H/O eye surgery Left retinal detachment Tobacco Smoking/Tobacco Use Status: Never Alcohol Alcohol Intake: never Substance Use Substance use: Never Substance use type: does not use Vital Signs and Lab Results Vital Signs Most Recent Vital Signs in EMR: Most Recent Vital Signs Temp Pulse Resp BP Pulse Ox 36.4 C L 88 20 161/84 H 97 06/30/23 12:15 06/30/23 12:15 06/30/23 12:15 06/30/23 12:15 06/30/23 12:15 Point of Care Results Point of Care Results: Finger Stick Blood Glucose 288 06/30/23 11:46 Lab Results Blood Type / Crossmatch: No Data to Display Complete Blood Count: No Data to Display Complete Metabolic Panel: No Data to Display Liver Function Panel: No Data to Display Coagulation Panel: No Data to Display Cardiac Panel: No Data to Display Arterial Blood Gas: No Data to Display Venous Blood Gas: No Data to Display Pancreas Panel: No Data to Display Thyroid Panel: No Data to Display Infectious Disease: No Data to Display Blood Cultures: No Data to Display Toxicology Panel: No Data to Display Imaging and Studies Imaging and Studies Study information below may be from another EMR and interpreted by another provider. Please see original notes in EMR for more complete details. EKG Summary: EKG PATIENT NAME: Elvira Chung #: [id number] ORDERING PROVIDER: Jam Sanchez #: [id number] PRIMARY CARE PROVIDER:MICHELLE LYON NP DATE/TIME OF SERVICE: 02/01/21 1551 : 1965PERFORMING LOCATION: OR APPROVED REPORT Exam: Resting ECG Reason for Exam: nausea Patient Location: E HR:95 bpm ECG Measurements Heart Rate 95 AXIS NE 187 P 50 QRSd 97 QRS 7 QT 323 T34 QTc 408 Conclusion Sinus rhythm...normal P axis, V-rate 60- 99 ST elev, probable normal early repol pattern...ST elevation, age<57 <Electronically signed by SELAM ROE MD in OV> E-Sign Date: 02/01/21 E-Sign Time: 1637 ADDENDUM APPROVED REPORT Exam: Resting ECG Reason for Exam: nausea Patient Location: E HR:95 bpm ECG Measurements Heart Rate 95 AXIS NE 187 P 50 QRSd 97 QRS 7 QT 323 T34 QTc 408 Conclusion Sinus rhythm...normal P axis, V-rate 60- 99 ST elev, probable normal early repol pattern...ST elevation, age<57 I have reviewed and I agree with the emergency room physician's ECG interpretation. Electronically signed by: <Electronically signed by Blu Morrison M.D. in [place]> 02/03/21 0939 Cosigned by: Echocardiogram Summary: Patient Name: ELVIRA CHUNG #: [id number]: DI Ordering Provider: Ana Mace #: [id number]: REG CLI Primary Care Provider: Cathy Lyon of Exam: 09/11/20ex: M Admission Date: 09/11/20 : 1965 Age: 55 Exam(s) a US:US echocardiogram APPROVED REPORT EXAM: Comprehensive 2D, Doppler, and color-flow Echocardiogram Patient Location: Out-Patient Chiropractor Assistant: Lita Rodriguez RDCS (AE) Indications: Bilateral leg edema Other Information Study Quality: Fair. Technically limited study due to body habitus. Conclusion Left Ventricle : The left ventricle is normal size. The left ventricular systolic function is normal. The left ventricular ejection fraction is within the normal range. There is normal left ventricular wall thickness. There is normal LV segmental wall motion. Diastolic function is indeterminate. LVEF is 57%. Right Ventricle : Right ventricle is not well visualized. Right ventricular systolic function could not be assessed. Atria : The left atrium size is normal. The right atrium size is normal. Mitral Valve : Moderate mitral annular calcification. Trace mitral regurgitation. No evidence of mitral valve stenosis. Great Vessels : The aortic root is normal in size. The ascending aorta is mildly dilated IVC is normal in size and collapses >50% with inspiration. Wall motion Left Ventricle The left ventricle is normal size. The left ventricular systolic function is normal. The left ventricular ejection fraction is within the normal range. There is normal left ventricular wall thickness. There is normal LV segmental wall motion. Diastolic function is indeterminate. There is no ventricular septal defect visualized. LVEF is 57%. Right Ventricle Right ventricle is not well visualized. Right ventricular systolic function could not be assessed. Atria The left atrium size is normal. The right atrium size is normal. The interatrial septum is intact with no evidence for an atrial septal defect. Aortic Valve The aortic valve is normal in structure. Aortic valve is trileaflet. There is no aortic valvular stenosis. No aortic regurgitation is present. Mitral Valve Moderate mitral annular calcification. No evidence of mitral valve stenosis. Trace mitral regurgitation. Tricuspid Valve The tricuspid valve is normal in structure. There is no tricuspid valve stenosis. Trace tricuspid regurgitation. Unable to assess PA pressure. Pulmonic Valve The pulmonary valve is normal in structure. There is no pulmonic valvular stenosis. Trace pulmonic regurgitation. Great Vessels The aortic root is normal in size. The ascending aorta is mildly dilated IVC is normal in size and collapses >50% with inspiration. Pericardium There is no pericardial effusion. 2D Dimensions IVSD d PLAX 1.18 cm M: 0.6-1.2LV Vol A2C d MOD 113.2 mL LVPW d PLAX 1.17 cm M: 0.6 - 1.2LV Vol A4C d MOD 180.6 mL LVID d PLAX 5.52 cm M: 4.2 - 5.8LA vol/ BSA A2C s A-L28.6 mL/m2 LVDs 3.75 cm M: 2.5 - 4.0LA vol/ BSA A4C s A-L24.6 mL/m2 Ao Root d 3.45 cm M: 3.1 - 3.7LA Vol/ BSA Biplane s A-L 26.7 mL/m2 RA Area A4C14.49 cm2LA Area A4C s MOD 19.72 cm2 RA Vol/ BSA A4C s A-L 14.5 mL/m2LA Area A2C s MOD 21.13 cm2 Ao Asc Diam d 3.80 cm M: 2.6 - 3.4LV EF A4C MOD 57.2 % LV EF Teichholz 59.4 %LV EF A2C MOD 55.6 % LVEF (Raya's)53.90 % M: 52 - 72LV EF Biplane MOD 53.9 % LV Vsldwa703.28 mL M: 62 - 595OP22.65 mL LV Volume Index41.07 mL/m2 M: 34 - 74SV Index31.61 mL/m2 LV Vol Biplane MOD 145.9 mL FS31.90 % M-Mode TAPSE 2.13 cm (M/F) >1.7 LV Diastology MV E' medial0.049 (>0.07 m/s)E/A Ratio 1.0 LV E/e MED12.60 (<14)MV E Vmax 0.62 (0.4-1.3 m/s) MV E' lateral0.087 (>0.1 m/s)MV A Vmax 0.60 (0.4-1.3 m/s) LV E/e LAT7.05 (<14)MV E/A Ratio 0.99 MV E/E' medial 12.60 MV E/E' lateral7.08 Aortic Valve LVOT Area4.02 cm2AoV Area Vmax2.79 cm2 LVOT Vmax 1.03 m/sAoV Area/ BSA (Vmax)1.12 cm2/m2 LVOT Mean Abel.0.67 m/sAVA Mean Abel.2.63 cm2 LVOT Peak Grad 4.2 mmHgAVA Mean Abel. Index1.06 cm2/m2 LVOT Mean Grad 2.1 mmHg LVOT VTI0.180 m LVOT Diam s 2.25 cm AoV Vmax1.48 m/s Velocity Ratio 0.69 AoV Mean Abel.1.03 m/s AoV Peak Grad8.8 mmHg LVOT SV 72.44 mL AoV Mean Grad5.0 mmHg AoV VTI0.231 m AoV Area VTI3.13 cm2 AoV Area/ BSA (VTI)1.26 cm/m2 Mitral Valve MV DT 282 (160-240 msec) MV PHT82 msec MV Area PHT 2.69 cm2 MV VTI 0.194 m MV VTI Annulus 0.201 m MV Area VTI 3.87 (4.0-6.0 cm2) Pulmonary Valve PV Vmax 1.19 (0.5-1.5 m/s)RVOT Peak Gr.2.49 mmHg PV Peak Grad 5.6 mmHgRVOT Mean Gr.1.15 mmHg PV Mean Grad 2.9 mmHgRVOT VTI0.134 m PV VTI 0.202 mRVOT Vmax 0.79 m/s Ordered By: Fly Mace CC: Dictated By: Blu Morrison M.D. 09/11/20 1557 <Electronically signed by Blu Morrison M.D. in [place]> 09/12/20 0084 Transcribed By: Blu Morrison MD Anesthesia Assessment and Plan Anesthesia History Personal History: No History of Anesthesia Complications Family History: No Family History of Anesthesia Complications Exercise Tolerance Exercise Tolerance: Metabolic Equivalents>4 Pertinent Negatives Pertinent Negatives: No Symptoms of GERD and No History of CVA/TIA Cardiac & Pulmonary Exam Cardiac Exam: Normal S1/S2 Heart Sounds Pulmonary Exam: Clear Bilateral Breath Sounds Implantable Cardiac Device Does patient have a Pacemaker or an ICD?: No Airway Exam Known Difficult Airway: No Mallampati Class: 2 Mouth Opening: Normal (> 3cm) Thyromental Distance: Greater than 3 cm Neck Range of Motion: Full ROM Neck Circumference: Normal Teeth Condition: Normal Dentition ASA Classification ASA Score: ASA 3 Emergency Case?: No NPO Status NPO Status: NPO Clears >2 hours, Solids >8 hours Anesthesia Plan Resuscitation Status: Full Code Anesthesia Technique: General Anesthesia Airway Planned: Endotracheal Tube Monitors Used: Standard Monitors
--- NOTE | 2023-06-30 13:29 | W.PM.DSUDISC ---
Date of service: 06/30/23 Time of Service: 13:29 Discharge Plan Disposition Patient Disposition: Home Condition: Good Discharge Details Reason For Visit: R cubital tunnel release and wrist injection Attending Provider: Jan Velasquez Primary Care Provider: Fly Mace Home Meds and New Rx's Prescriptions: New acetaminophen 500 mg tablet 1,000 mg PO TID Qty: 90 0RF hydrocodone-acetaminophen 5-325 mg tablet 1 tab PO Q6H PRN (Reason: pain) Qty: 12 0RF ibuprofen 600 mg tablet 600 mg PO TID PRN (Reason: pain) Qty: 90 0RF Continued cholecalciferol (vitamin D3) 25 mcg (1,000 unit) capsule 2,000 unit PO DAILY Trulicity 1.5 mg/0.5 mL pen injector 4.5 mg SC QWEEK furosemide 20 mg tablet 20 mg PO DAILY insulin glargine [Lantus Solostar U-100 Insulin] 100 unit/mL (3 mL) insulin pen 20 unit subcut QAM Patient Comments: pt. reports he doesnt use pen anymore, uses a vial, pt. reports taking 10 units last night, pt. states dosing was changed on 06/29/23 to 80 in morning, 30 after supper Pt. states night insulin lispro [Humalog U-100 Insulin] 100 unit/mL solution 30 unit subcut QAC Patient Comments: pt. states on 06/29/23 his advertising display rotator told him to use in PRN ezetimibe 10 mg tablet 10 mg PO DAILY albuterol sulfate 90 mcg/actuation HFA aerosol inhaler See Rx Instructions inhalation .Q4-6H PRN Rx Instructions: 1-2 puffs inhaled Q4-6H PRN; aspirin 325 MG tablet 162 mg PO DAILY chlorthalidone 25 MG tablet 50 mg PO DAILY lisinopril 40 MG tablet 40 mg PO DAILY atorvastatin [Lipitor] 40 MG tablet 40 mg PO DAILY labetalol 100 MG tablet 100 mg PO BID betamethasone dipropionate 0.05 % cream 0 applic TOPICAL BID Patient Comments: APPLY CREAM TOPICALLY TO AFFECTED AREA TWICE DAILY DIRECTED spironolactone 50 mg tablet 50 mg PO DAILY Patient Comments: TAKE 1 TABLET BY MOUTH ONCE DAILY Novolin N NPH U-100 Insulin 100 unit/mL suspension 50 unit SUBCUT HS Patient Comments: changed on 06/29/23 to 40 after breakfast, 50 after supper Invokana 300 mg tablet 100 mg PO DAILY AM Discontinued acetaminophen [Tylenol Extra Strength] 500 mg Tablet 1,000 mg PO Q6H PRN Discharge Instructions Additional Instructions: Cubital Tunnel Decompression Discharge Instructions Activity: You should stay in the sling for the first 2 weeks. You may come out of the sling for gentle motion and hygiene but should largely remain in the sling to allow the incision site to heal. Gentle motion of the elbow, hand, wrist, and fingers is okay and encouraged after the first few days, but no repetitive activites nor heavy lifting. You may apply ice. Medications: - You should take Tylenol and Ibuprofen around the clock. - You have been prescribed Hydrocodone for breakthrough pain. Dressings: - The initial surgical dressing should stay in place for 3 days. It may then be removed and kept clean and dry. You should cover with a light gauze dressing. - You may shower after 3 days and get the wound wet. Follow-up: 10 days Referrals: Jan Velasquez MD [ [facility] STAFF PHYSICIAN] - Activity:: Elevate Remove Dressings/Wound Care:: 72 hours Shower/Bathe:: 72 hours Diet:: As Tolerated Discharge Orders Discharge Orders: Discharge Order (Routine); Ordered 06/30/23 Ordered By: Сергей Lara DS: Diagnosis Discharge Diagnosis (1) Cubital tunnel syndrome on right: Status: Acute (2) Arthritis of right wrist: Status: Acute
[2023-06-30] MEDS: ceFAZolin 3,000 MG in Normal Saline 100 ML 200 MG IVPB (14:20)
[2023-06-30] MEDS: methylPREDNISolone ACETATE 80 MG/ML VIAL (14:46)
[2023-06-30] MEDS: fentaNYL 100 MCG/2 ML VIAL IVP (16:34)
--- NOTE | 2023-06-30 16:35 | W.PM.OP ---
Date of service: 06/30/23 Time of Service: 14:30 Operative Note Operative Note DATE OF PROCEDURE: 06/30/23 PRE-OP DIAGNOSIS: Right Cubital Tunnel Syndrome Right PisoTriquetral Arthritis POST-OP DIAGNOSIS: same PROCEDURE: Right Cubital Tunnel Decompression with Anterior Subcutaneous Transposition Right PisoTriquetral Injection SURGEON: Jan Velasquez CERTIFIED REHABILITATION COUNSELOR: Сергей Lara ANESTHESIA TYPE: General LMA/ETT Refer to Anesthesia Record ESTIMATED BLOOD LOSS: 0 PATHOLOGY: none sent TOURNIQUET TIME: 30 COMPLICATIONS: None Patient was transported to: PACU Patient's condition: stable Indications: Johnson is a 57-year-old male who has had symptoms of cubital tunnel syndrome. Nonoperative treatment options had been trialed. Nerve conduction studies identified the cubital tunnel as the point of compression. Given failure of nonoperative treatments and persistent symptoms, I offered operative intervention. I reviewed the technical details of a cubital tunnel decompression with possible anterior subcutaneous transposition. I reviewed the risk of the procedure to include bleeding, infection, pain, stiffness, tendon instability, damage to the superficial radial nerve, and complete release. Despite these risks, the patient elected to proceed. He also had ongoing pain about the ulnar aspect of the right wrist which was most indicative of pisotriquetral arthritis, confirmed with MRI. As a treatment modality I offered injection of this today while he was under anesthesia. He elected to proceed with the injection. Findings: There was a tightened cubital tunnel. He had an accessory muscle, anconeus epitrochlearis the cubital tunnel which was compressing the nerve. The ulnar nerve was release from the first motor branch distally through the [place] of [place] proximally. It was unstable after release and therefore an anterior subcutaneous transposition was performed. Procedure Description: Johnson was greeted in the preoperative holding area. Name and surgical site were confirmed. The history and physical was completed. The consent was reviewed the patient and signed. Johnson was taken back to the operating room. The patient was placed in the supine positioned and a general anesthetic was administered. The right was then prepped with ChloraPrep and draped in a standard fashion after a nonsterile tourniquet was placed high up into the axilla of the arm. Prophylactic antibiotics in the form of cefazolin were administered. A timeout was performed for safe surgery. Starting with the pisotriquetral injection. The soft spot between the pisiform and the triquetrum was identified over the ulnar aspect of the wrist. Using 25-gauge needle was able to enter the pisotriquetral joint and inject 1 cc of 0.5% bupivacaine and 40 mg of Depo-Medrol. Returning to the elbow, the surgical site was drawn on the skin as was the medial epicondyle borders. The planned surgical field was anesthetized with 1% lidocaine with epinephrine. The limb was exsanguinated and the tourniquet was inflated where it stayed for 30. A 6 cm incision was made curvilinearly around the medial elbow. The skin was incised only. The deep tissue and subcutaneous fat was dissected with a tenotomy scissors trying to protect any branches of the medial antebrachial cutaneous nerve. Any branches that were identified were retracted out of the way. The ulnar nerve was palpated and identified. A small window into the cubital tunnel, sheath overlying the nerve, was created and the nerve was able to be palpated with the [place]. A Metzenbaum scissor was then used to open up the sheath starting with Page's ligament. I then worked distal over the ulnar nerve releasing any constraints against the nerve all the way to the fascia of the FCU muscle belly. This muscle belly was bluntly all the way down to the first motor branch of the ulnar nerve and the overlying fascia was incised. Likewise starting there at the lateral epicondyle, I proceeded to work proximally to release any constraints over the ulnar nerve. This was taken all the way to the arcade of [place]. The medial intermuscular septum was also palpated and any sharp edges against the ulnar nerve were resected and released. After fully releasing the nerve it was inspected visually. I was also able to palpate the nerve fully and reach one finger up into the proximal and distal aspects to make sure there were no constraints against the nerve. A freer elevator was also used to slide easily against the ulnar nerve without any points of constriction. The arm was then taken through range of motion. The ulnar nerve did sublux/dislocate out of its groove behind the medial epicondyle. Therefore, an anterior subcutaneous transposition was performed. Flap of fascia from the medial condyle was raised based on the medial condyle. It was elevated. The ulnar nerve was fully inspected and released from any other attachments and other points of compression and mobilized anteriorly. With the nerve resting anteriorly, the flap was fashioned to the deep dermal layer. The nerve was freely resting over the anterior aspect of the elbow. The tourniquet was then deflated. Any areas of bleeding were cauterized with bipolar electrocautery. The wound was thoroughly irrigated. The deep tissue was closed with a 3-0 Vicryl. The skin was closed with a 4-0 nylon. The wound was dressed with Xeroform, 4 x 4's, ABD, Kerlix and an Chance wrap. He was placed into a sling. Johnson was transferred back to the PACU in a stable condition.
--- NOTE | 2023-06-30 16:52 | W.ANESPOSTOP ---
Postoperative Evaluation Date, Time and Location Date Performed: 06/30/23 Time Performed: 16:42 Patient Location: PACU Vital Signs Most Recent Imported Vital Signs: Most Recent Vital Signs Temp Pulse Resp BP Pulse Ox 36.6 C 74 11 L 153/80 H 95 06/30/23 16:40 06/30/23 16:40 06/30/23 16:40 06/30/23 16:40 06/30/23 16:40 Pain Score Most Recent Pain Score: Most Recent Pain Score Pain Level 3 06/30/23 16:40 Assessment Mental Status: Awake (Alert & Oriented to Patient Baseline) Airway and Respiratory Function: Patent airway with normal (patient baseline) respiratory exam Cardiovascular Function: Hemodynamically Stable Hydration Status: Adequately Hydrated Nausea & Vomiting: No Nausea or Vomiting Pain: Pain is tolerable per patient (Reports some tingling to his operative hand, but overall feeling good. I did discuss this is most likely due to manipulation of the ulnar nerve. I will inform the surgeon as well. ) Peripheral Nerve Block: Patient did not receive a nerve block
== END 2023-06-30 17:52 | disposition home or self-care (01) ==
PROVIDERS: PCP Physician Assistant; Visit Provider Student in an Organized Health Care Education/Training Program
PROC: (CPT 64718; principal; 2023-06-30 14:00)
DX: G56.21 Lesion of ulnar nerve, right upper limb (principal); M19.031 Primary osteoarthritis, right wrist
CPT/HCPCS: 64718; J0131; J0690; J1040; J1100; J2001; J2405; J2704; J3010

== ENCOUNTER 2023-08-04 15:03 | Outpatient (REF) | payer MEDICAID, SELFPAY ==
[2023-08-04 16:19] LABS: HCT 28.5 % (40.0-50.0); HGB 9.6 g/dL (13.5-17.5); MCH 30.8 pg (27.0-33.0); MCHC 33.7 % (32.0-36.0); MCV 91 fL (80-95); Platelet Count 159 10^3/uL (130-400); RBC 3.12 10^6/uL (4.36-5.78); RDW-SD 40.1 fL; WBC 4.91 10^3/uL (4.4-10.8)
[2023-08-04 16:28] LABS: Iron 71 ug/dL (65-175); Total Iron Binding Capacity 271 ug/dL (250-450); Transferrin Sat 26 % (20-55)
[2023-08-04 17:05] LABS: Anion Gap 11.8 mmol/L (3-11); BUN 68 mg/dL (7-18); CO2 21.2 mmol/L (21.0-32.0); Calcium 8.8 mg/dL (8.5-10.1); Chloride 104 mmol/L (98-107); Estimated GFR 38.45 (mL/min/1.73m2); Ferritin 191 ng/mL (26-388); Glucose 231 mg/dL (74-106); Magnesium 1.8 mg/dL (1.8-2.4); Potassium 4.9 mmol/L (3.5-5.1); Sodium 137 mmol/L (136-145); Vitamin B12 921 pg/mL (193-986)
== END 2023-08-04 15:04 | disposition home or self-care (01) ==
LOC: NCHCN 15:03
PROVIDERS: PCP Physician Assistant; Visit Provider Physician Assistant
DX: D64.9 Anemia, unspecified (principal); I10 Essential (primary) hypertension; N18.30 Chronic kidney disease, stage 3 unspecified; R25.2 Cramp and spasm
CPT/HCPCS: 80048; 85027; 82607; 82728; 83540; 83550; 83735

== ENCOUNTER 2023-10-06 10:02 | Outpatient (REF) | payer MEDICAID, SELFPAY ==
[2023-10-06 15:23] LABS: Anion Gap 10.1 mmol/L (3-11); BUN 59 mg/dL (7-18); CO2 24.9 mmol/L (21.0-32.0); Calcium 8.9 mg/dL (8.5-10.1); Chloride 102 mmol/L (98-107); Estimated GFR 38.45 (mL/min/1.73m2); Glucose 215 mg/dL (74-106); Magnesium 1.9 mg/dL (1.8-2.4); Potassium 4.7 mmol/L (3.5-5.1); Sodium 137 mmol/L (136-145)
== END 2023-10-06 10:03 | disposition home or self-care (01) ==
LOC: NCHCN 10:02
PROVIDERS: PCP Physician Assistant; Visit Provider Physician Assistant
DX: M79.18 Myalgia, other site (principal)
CPT/HCPCS: 80048; 83735

== ENCOUNTER 2023-11-11 14:47 | Outpatient (CLI) | payer MEDICAID, SELFPAY ==
--- NOTE | 2023-11-11 09:39 | DI.RAD_ITS ---
Exam(s) XR ELBOW LT COMPLETE EXAM: XR ELBOW LT COMPLETE CLINICAL HISTORY: left elbow pain. TECHNIQUE: 2D digital imaging was performed of the left elbow. Two images were obtained. AP and la teral views were obtained. Per the technologist, the patient was unable to perform the oblique view of the elbow. COMPARISON: No exams were available for comparison FINDINGS: BONES: There is a horizontal lucency in the lateral aspect of the radial head on the AP view suspicio us for fracture. No bony destructive lesion is seen. There is an enthesophyte at the triceps inserti on site. JOINTS: The elbow is normally aligned. There is a small joint effusion. SOFT TISSUE: Normal. IMPRESSION: 1. Horizontal lucency in the lateral aspect of the radial head which may represent a nondisplaced fra cture. Please correlate with patient's clinical history. 2. Small joint effusion. Unexpected findings DATA REPOSITORY: RADIATION DOSE DELIVERED:
== END 2023-11-11 14:48 | disposition home or self-care (01) ==
LOC: DIORS 14:47
PROVIDERS: PCP Physician Assistant; Visit Provider Physician Assistant
DX: M25.522 Pain in left elbow (principal)
CPT/HCPCS: 73080

== ENCOUNTER 2024-09-04 12:26 | Outpatient (REF) | payer MEDICAID, SELFPAY ==
[2024-09-04 15:00] LABS: HCT 29.3 % (40.0-50.0); HGB 9.6 g/dL (13.5-17.5); MCH 31.8 pg (27.0-33.0); MCHC 32.8 % (32.0-36.0); MCV 97 fL (80-95); MPV 10.4 fL (8.0-11.0); Platelet Count 184 10^3/uL (130-400); RBC 3.02 10^6/uL (4.36-5.78); RDW 12.9 % (11.8-14.1); RDW-SD 45.3 fL; WBC 4.06 10^3/uL (4.4-10.8)
[2024-09-04 15:43] LABS: Anion Gap 10.1 mmol/L (3-11); BUN 72 mg/dL (7-18); CO2 24.9 mmol/L (21.0-32.0); CREATININE 2.7 mg/dL (0.70-1.30); Calcium 8.8 mg/dL (8.5-10.1); Chloride 103 mmol/L (98-107); Estimated GFR 26.66 (mL/min/1.73m2); Glucose 189 mg/dL (74-106); Potassium 4.8 mmol/L (3.5-5.1); Sodium 138 mmol/L (136-145)
[2024-09-04 15:47] LABS: Iron 83 ug/dL (65-175); Total Iron Binding Capacity 308 ug/dL (250-450); Transferrin Sat 27 % (20-55)
== END 2024-09-04 12:27 | disposition home or self-care (01) ==
LOC: NCHCN 12:26
PROVIDERS: PCP Physician Assistant; Visit Provider Physician Assistant
DX: D64.9 Anemia, unspecified (principal)
CPT/HCPCS: 80048; 85027; 83540; 83550

== ENCOUNTER 2024-09-21 09:53 | Outpatient (REF) | payer MEDICAID, SELFPAY ==
[2024-09-21 15:33] LABS: HGB 9.5 g/dL (13.5-17.5)
[2024-09-21 16:08] LABS: Anion Gap 12.7 mmol/L (3-11); BUN 64 mg/dL (7-18); CREATININE 2.7 mg/dL (0.70-1.30); Calcium 9.4 mg/dL (8.5-10.1); Chloride 103 mmol/L (98-107); Estimated GFR 26.66 (mL/min/1.73m2); Glucose 135 mg/dL (74-106); Potassium 4.5 mmol/L (3.5-5.1); Sodium 140 mmol/L (136-145)
[2024-09-21 16:55] LABS: CO2 22.6 mmol/L (21.0-32.0)
[2024-09-21 22:14] LABS: Parathyroid Hormone,Intact 116.6 pg/mL (19.0-88.0)
== END 2024-09-21 09:54 | disposition home or self-care (01) ==
LOC: NCHCN 09:53
PROVIDERS: PCP Physician Assistant; Visit Provider Physician Assistant
DX: N18.30 Chronic kidney disease, stage 3 unspecified (principal)
CPT/HCPCS: 80048; 83970; 85018

== ENCOUNTER 2024-10-20 23:58 | Emergency (ER) | payer MEDICAID, SELFPAY ==
[2024-10-21 00:03] VITALS: BP 175/80; PULSE 97; RESP 22; TEMP 36.1; O2SAT 97
[2024-10-21 00:13] VITALS: RESP 20
[2024-10-21 00:27] LABS: Bilirubin Negative (Negative); Blood Small (Negative); Clarity Clear (Clear); Glucose 500 mg/dL (Negative); Ketones Negative (Negative); Leukocyte Esterase Negative (Negative); Nitrite Negative (Negative); Specific Gravity 1.025 (1.005-1.025); Urobilinogen 0.2 mg/dL (Up to 0.2)
[2024-10-21 00:31] LABS: Bacteria Rare HPF (Negative); C & S Indicated? No; Casts Negative LPF (Negative); Crystals Negative HPF (Negative); Epithelial Cells Rare HPF (Negative); Mucus Negative (Negative); WBC Negative HPF (0-5)
[2024-10-21 00:33] LABS: Abs Immature Grans 0.11 10^3/uL (0.0-0.06); Absolute Basophil Count 0.06 10^3/uL (0.0-0.2); Absolute Eosinophil Count 0.41 10^3/uL (0.0-0.7); Absolute Lymphocyte Count 1.23 10^3/uL (1.2-3.4); Absolute Monocyte Count 0.78 10^3/uL (0.1-0.8); Absolute Neutrophil Count 5.62 10^3/uL (1.2-6.7); Basophils % 0.7 %; HCT 29.1 % (40.0-50.0); HGB 10.2 g/dL (13.5-17.5); Immature Grans % 1.3 %; MCH 32.6 pg (27.0-33.0); MCHC 35.1 % (32.0-36.0); MCV 93 fL (80-95); MPV 10.4 fL (8.0-11.0); Monocytes % 9.5 %; Neutrophils % 68.5 %; Nucleated RBC 0.5 % (0.0-0.3); Platelet Count 229 10^3/uL (130-400); RBC 3.13 10^6/uL (4.36-5.78); RDW 12.1 % (11.8-14.1); RDW-SD 41.1 fL; WBC 8.21 10^3/uL (4.4-10.8)
--- NOTE | 2024-10-21 00:44 | ED.GENADUL_ITS ---
Discharge Plan Disposition Patient Disposition: Home Condition: Good Discharge Details Clinical Impression: Muscle spasm of both lower legs Primary Care Provider: Fly Mace ED Provider: Rosendo Schuster Home Meds and New Rx's Prescriptions: New methocarbamol 750 mg tablet 750 mg PO Q8H MDD 4500 mg Qty: 30 0RF No Action cholecalciferol (vitamin D3) 25 mcg (1,000 unit) capsule 2,000 unit PO DAILY Trulicity 1.5 mg/0.5 mL pen injector 4.5 mg SC QWEEK furosemide 20 mg tablet 20 mg PO DAILY Epogen 20,000 unit/mL solution 20,000 unit subcut .Q 2 WEEKS allopurinol 100 mg tablet 100 mg PO DAILY colchicine 0.6 mg tablet 0.6 mg PO BID lisinopril 20 mg tablet 20 mg PO DAILY insulin glargine U-300 conc [Toujeo Max U-300 SoloStar] 300 unit/mL (3 mL) insulin pen 45 unit subcut DAILY prednisone 10 mg tablet 10 mg PO DIRECTED Rx Instructions: see taper instructions (32atw4a, 30mgx2, 20mgx2, 10mgx2) insulin lispro [Humalog U-100 Insulin] 100 unit/mL solution 30 unit subcut QA Patient Comments: pt. states on 06/29/23 his signalling and communications engineer told him to use in PRN ezetimibe 10 mg tablet 10 mg PO DAILY albuterol sulfate 90 mcg/actuation HFA aerosol inhaler See Rx Instructions inhalation .Q4-6H PRN Rx Instructions: 1-2 puffs inhaled Q4-6H PRN; aspirin 325 MG tablet 162 mg PO DAILY chlorthalidone 25 MG tablet 50 mg PO DAILY atorvastatin [Lipitor] 40 MG tablet 40 mg PO DAILY labetalol 100 MG tablet 100 mg PO BID betamethasone dipropionate 0.05 % cream 0 applic TOPICAL BID Patient Comments: APPLY CREAM TOPICALLY TO AFFECTED AREA TWICE DAILY DIRECTED spironolactone 50 mg tablet 50 mg PO DAILY Patient Comments: TAKE 1 TABLET BY MOUTH ONCE DAILY Novolin N NPH U-100 Insulin 100 unit/mL suspension 50 unit SUBCUT HS Patient Comments: changed on 06/29/23 to 40 after breakfast, 50 after supper acetaminophen 500 mg tablet 1,000 mg PO TID Qty: 90 0RF ibuprofen 600 mg tablet 600 mg PO TID PRN (Reason: pain) Qty: 90 0RF Invokana 300 mg tablet 100 mg PO DAILY AM Jardiance 10 mg tablet 10 mg PO ONCE Patient Comments: TAKE ONE TABLET BY MOUTH EVERY DAY Mounjaro 5 mg/0.5 mL pen injector 5 mg SUBCUT Patient Comments: INJECT 5MG UNDER THE SKIN ONCE WEEKLY Discharge Instructions Instructions: Muscle Spasm ED Additional Instructions: Take 1 or 2 methocarbamol tablets every 8 hours as needed for symptoms of muscle spasms. Start with 1 tablet every 8 hours, and you may increase to 2 tablets if symptoms not well-controlled. If your symptoms are not improving with this medical plan, consider following up with your regular primary care doctor and trying a different medication like gabapentin or Lyrica to help improve your symptoms. You can always return to the ER for any new concerns or sudden changes in your health which you feel require emergency medical attention. Discharge Data Discharge Physician: Rosendo Schuster [facility] General Date/Time Provider Initiated Documentation: 10/21/24 00:02 . HPI Narrative: The patient is a 59-year-old male, with a past medical history significant for type 2 diabetes treated with a combination of oral medications and insulin, hypertension, hyperlipidemia, anemia of chronic disease with Epogen use, and gout, who presents to the emergency department this evening complaining of migratory muscle cramping in his legs and lower back which is somewhat chronic but was severe tonight and out of the norm for his typical symptoms. The patient states that he was getting into bed and was trying to get undressed when he developed cramping in his right groin which then radiated into his lower back and then began in his left knee. The pain was so severe that he was unable to stand up or walk. He attempted to stretch out and rub the areas, but he could not get the sensation of the charley horse to go away. The patient tells me that he gets chronic muscle cramps like this almost every day but not typically to this severity. Since he is arrived in the ER, the patient reports the pain has completely resolved at this time. The patient has a history of chronic kidney disease and does occasionally have electrolyte abnormalities which she is being followed by nephrology at [facility] at this time. Related Data Home Medications ?Medication ?Instructions ?Recorded ?Confirmed aspirin 325 mg tablet 162 mg PO DAILY 06/09/13 10/21/24 chlorthalidone 25 mg tablet 50 mg PO DAILY 06/09/13 10/21/24 atorvastatin 40 mg tablet (Lipitor) 40 mg PO DAILY 10/12/17 10/21/24 labetalol 100 mg tablet 100 mg PO BID 10/12/17 10/21/24 betamethasone dipropionate 0.05 % 0 applic topical BID 02/02/21 10/21/24 topical cream spironolactone 50 mg tablet 50 mg PO DAILY 02/02/21 10/21/24 ezetimibe 10 mg tablet 10 mg PO DAILY 10/01/22 10/21/24 albuterol sulfate 90 mcg/actuation See Rx Instructions inhalation 01/25/23 10/21/24 aerosol inhaler .Q4-6H PRN furosemide 20 mg tablet 20 mg PO DAILY 03/15/23 10/21/24 canagliflozin 300 mg tablet 100 mg PO DAILY AM 03/16/23 10/21/24 (Invokana) insulin NPH isoph U-100 human 100 50 unit subcut HS 04/15/23 10/21/24 unit/mL subcutaneous suspension (Novolin N NPH U-100 Insulin isophane) insulin lispro 100 unit/mL 30 unit subcut QAC 04/15/23 10/21/24 subcutaneous solution (Humalog U-100 Insulin) cholecalciferol (vitamin D3) 25 2,000 unit PO DAILY 05/07/23 10/21/24 mcg (1,000 unit) capsule dulaglutide 1.5 mg/0.5 mL 4.5 mg subcut QWEEK 05/07/23 10/21/24 subcutaneous [facility] acetaminophen 500 mg tablet 1,000 mg (2 x 500 mg) PO TID #90 06/30/23 10/21/24 tabs ibuprofen 600 mg tablet 600 mg PO TID PRN pain #90 tabs 06/30/23 10/21/24 allopurinol 100 mg tablet 100 mg PO DAILY 11/11/23 10/21/24 colchicine 0.6 mg tablet 0.6 mg PO BID 11/11/23 10/21/24 epoetin jade 20,000 unit/mL 20,000 unit subcut .Q 2 WEEKS 11/11/23 10/21/24 injection solution (Epogen) insulin glargine U-300 conc 300 45 unit subcut DAILY 11/11/23 10/21/24 unit/mL (3 mL) subcutaneous pen (Toujeo Max U-300 SoloStar) lisinopril 20 mg tablet 20 mg PO DAILY 11/11/23 10/21/24 prednisone 10 mg tablet 10 mg PO DIRECTED 11/11/23 10/21/24 empagliflozin 10 mg tablet 10 mg PO ONCE 10/21/24 10/21/24 (Jardiance) methocarbamol 750 mg tablet 750 mg PO Q8H muscle spams #30 tabs 10/21/24 tirzepatide 5 mg/0.5 mL 5 mg subcut 10/21/24 subcutaneous pen injector (Richi) Previous Rx's ?Medication ?Instructions ?Recorded acetaminophen 500 mg tablet 1,000 mg (2 x 500 mg) PO TID #90 06/30/23 tabs ibuprofen 600 mg tablet 600 mg PO TID PRN pain #90 tabs 06/30/23 methocarbamol 750 mg tablet 750 mg PO Q8H muscle spams #30 tabs 10/21/24 Allergies Allergy/AdvReac Type Severity Reaction Status Date / Time pollen extracts Allergy Other (See Verified 10/21/24 00:08 Comment) General Stated Complaint: GenMedical NOEMI: 3 Exam Const General: cooperative and no acute distress Nutritional Appearance: overweight Orientation: alert, awake and oriented x3 HENMT Head: normal to inspection and normocephalic Ears: external ears normal General nose exam: external nose normal Face and sinus: normal facial exam Resp Effort & Inspection: normal respiratory effort and able to speak in complete sentences Auscultation: clear to auscultation bilaterally Cardio Rate: regular rate Rhythm: regular rhythm GI Palpation: soft Auscultation: normal bowel sounds Skin General skin exam: no rashes or lesions noted Neuro General: patient oriented x3, moves all extremities, normal light touch, pain and propioception, no focal motor deficits and CN's II-XI intact bilaterally Psych Appearance: grossly normal Mental Status: mental status grossly normal Speech and Movement: speech and movement normal Affect: normal affect Course Vital Signs Vital signs: Vital Signs Temperature 36.1 C L 10/21/24 00:03 Pulse 97 H 10/21/24 00:03 Respiratory Rate 22 10/21/24 00:03 Blood Pressure 175/80 H 10/21/24 00:03 Pulse Oximetry 97 10/21/24 00:03 Temperature 36.1 C L 10/21/24 00:03 Temperature Source Skin 10/21/24 00:03 Pulse 97 H 10/21/24 00:03 Respiratory Rate 20 10/21/24 00:13 Respiratory Effort Normal, Non-Labored 10/21/24 00:13 Respiratory Depth Normal 10/21/24 00:13 Respiratory Pattern Normal 10/21/24 00:13 Blood Pressure 175/80 H 10/21/24 00:03 Blood Pressure Position Sitting 10/21/24 00:03 Pulse Oximetry 97 10/21/24 00:03 Oxygen Delivery Method Room Air 10/21/24 00:03 Oxygen Flow Rate 0 10/21/24 00:03 Lab/Test Results Lab/Test Results: Laboratory Tests Range/Units 10/21/24 00:16 WBC (4.4-10.8) 10^3/uL 8.21 RBC (4.36-5.78) 10^6/uL 3.13 L Hgb (13.5-17.5) g/dL 10.2 L Hct (40.0-50.0) % 29.1 L MCV (80-95) fL 93 MCH (27.0-33.0) pg 32.6 MCHC (32.0-36.0) % 35.1 RDW (11.8-14.1) % 12.1 Plt Count (130-400) 10^3/uL 229 MPV (8.0-11.0) fL 10.4 Immature Gran % % 1.3 Neutrophils % % 68.5 Lymphocytes % % 15.0 Monocytes % % 9.5 Eosinophils % % 5.0 Basophils % % 0.7 Nucleated RBC % (0.0-0.3) % 0.5 H Absolute Neutrophils (1.2-6.7) 10^3/uL 5.62 Absolute Lymphocytes (1.2-3.4) 10^3/uL 1.23 Absolute Monocytes (0.1-0.8) 10^3/uL 0.78 Absolute Eosinophils (0.0-0.7) 10^3/uL 0.41 Absolute Basophils (0.0-0.2) 10^3/uL 0.06 Urine Color (Yellow) Yellow Urine Clarity (Clear) Clear Urine pH (5-8) 6.0 Ur Specific [place] (1.005-1.025) 1.025 Urine Protein (Neg-Trace) mg/dL >=300 H Urine Ketones (Negative) mg/dL Negative Urine Blood (Negative) Small H Urine Nitrite (Negative) Negative Urine Bilirubin (Negative) Negative Urine Urobilinogen (Up to 0.2) mg/dL 0.2 Ur Leukocyte Esterase (Negative) Negative Urine RBC (0-2) HPF 3-5 H Urine WBC (0-5) HPF Negative Ur Epithelial Cells (Negative) HPF Rare Urine Crystals (Negative) HPF Negative Urine Bacteria (Negative) HPF Rare Urine Casts (Negative) LPF Negative Urine Mucus (Negative) Negative Ur Culture Indicated? No Urine Glucose (Negative) mg/dL 500 H Medical Decision Making The patient was seen and examined. He is in no distress and has some hypertension here on arrival to the emergency room. This may be reflection of the patient's chronic disease state and also may be related to some anxiety from being in the emergency room. The patient has a relatively normal heart rate, respiratory rate and temperature. The patient has no signs or symptoms of a current infection such as cough, upper respiratory tract symptoms, chest pain, abdominal pain, or urinary dysfunction. The patient describes no GI symptoms such as nausea, vomiting, or diarrhea. This sounds like it was an exacerbation of chronic underlying muscle spasms that the patient experiences almost daily. The patient will be evaluated to ensure that he does not have any remarkable electrolyte abnormalities that require acute treatment here in the emergency room. Assuming that his labs are at baseline, or not significantly worse, we can discuss treatment with a variety of medications including gabapentin or methocarbamol to help improve the patient's symptoms. The patient might also be experiencing some of these muscle cramps related to his more recent use of epoetin jade for his anemia. Disposition depends on discovery of pathology here in the emergency room. The patient electrolytes well-preserved, despite having some worsening kidney function. The patient has improvement in his anemia with the Epogen since our last encounter. I will prescribe the patient oral methocarbamol to help improve his muscle spasms as needed. If symptoms are not well-controlled with this medication, I will recommend that he follow-up with his regular primary care doctor and consider gabapentin. Quality:SDOH Health Related Social Needs: No Data to Display PFSH All Active Problems (Updated 10/21/24 @ 01:38 by Rosendo Schuster MD) Muscle spasm of both lower legs (Acute) Left elbow pain (Acute) Arthritis of right wrist (Acute) Right pisotriquetral Injection: 06/30/2023, 04/19/2024 Obstructive sleep apnea (Chronic) noncompliant with CPAP; sleep study at [facility] Hypertension (Chronic) 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) Encounter for screening colonoscopy (Acute) S/P colonoscopy (Acute ~10/31/18) Right lateral epicondylitis (Chronic) Left lateral epicondylitis (Chronic) Tinnitus, bilateral (Acute) Sensorineural hearing loss of combined sites, bilateral (Acute) Acute UTI (Acute) CKD (chronic kidney disease) stage 3, GFR 30-59 ml/min (Chronic) DVT prophylaxis (Acute) Discharge planning issues (Acute) Cubital tunnel syndrome on right (Acute) S/P Decompression with anterior transposition: 06/30/2023 Right carpal tunnel syndrome (Acute) Lung nodule (Acute) SOB (shortness of breath) (Acute) Paresthesia of both hands (Acute) Chronic kidney disease (CKD) (Chronic) Lung mass (Acute) 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 denies Type 2 diabetes mellitus Vitreous floaters Lateral epicondylitis of both elbows Retinal detachment Leg edema Venous stasis dermatitis Tinnitus aurium Decreased hearing Anemia Hand paresthesia Hypertriglyceridemia Muscle cramps Headache Retinal detachment, left Proteinuria Retinal lattice degeneration Glaucoma, bilateral Diastolic heart failure Pt. denies-states this should have never been in his records Gout Hyperlipidemia Morbid obesity Joint stiffness Surgical History H/O eye surgery Left retinal detachment Social History Smoking/Tobacco Use Status: Never Smoking risk assessment performed?: Yes Alcohol Intake: never Drug use: Never Substance use type: does not use Housing: house Current gender identity: male Do you feel safe at home: Yes Do you feel safe in your relationship?: Yes
[2024-10-21 00:50] LABS: Albumin 3.4 g/dL (3.4-5.0); Alkaline Phosphatase 88 U/L (46-116); Anion Gap 9.3 mmol/L (3-11); Bilirubin, Total 0.28 mg/dL (0.2-1.0); CO2 25.7 mmol/L (21.0-32.0); Calcium 8.9 mg/dL (8.5-10.1); Chloride 99 mmol/L (98-107); Estimated GFR 17.69 (mL/min/1.73m2); Glucose 309 mg/dL (74-106); Magnesium 1.8 mg/dL (1.8-2.4); Potassium 4.7 mmol/L (3.5-5.1); Sodium 134 mmol/L (136-145); Total Protein 7.5 g/dL (6.4-8.2)
[2024-10-21 00:56] LABS: BUN 84 mg/dL (7-18)
[2024-10-21 00:57] LABS: CREATININE 3.8 mg/dL (0.70-1.30)
[2024-10-21 01:41] LABS: ALT 34 U/L (16-63); AST 20 U/L (15-37)
[2024-10-21 02:06] VITALS: BP 127/65; PULSE 87; RESP 18; O2SAT 99
== END 2024-10-21 02:06 | disposition home or self-care (01) ==
PROVIDERS: Emergency Provider Emergency Medicine Emergency Medical Services; PCP Physician Assistant
DX: R25.2 Cramp and spasm (principal); M62.831 Muscle spasm of calf; E11.22 Type 2 diabetes mellitus with diabetic chronic kidney disease; I13.0 Hypertensive heart and chronic kidney disease with heart failure and stage 1 through stage 4 chronic kidney disease, or unspecified chronic kidney disease; N18.30 Chronic kidney disease, stage 3 unspecified; I50.32 Chronic diastolic (congestive) heart failure; E78.5 Hyperlipidemia, unspecified; Z79.4 Long term (current) use of insulin; Z79.85 Long-term (current) use of injectable non-insulin antidiabetic drugs; Z79.82 Long term (current) use of aspirin
CPT/HCPCS: 36415; 80053; 99283; 81003; 81015; 83735; 85025

== ENCOUNTER 2025-01-04 22:29 | Outpatient (REF) | payer MEDICAID, SELFPAY ==
[2025-01-04 22:18] LABS: ALT 39 U/L (16-63); AST 25 U/L (15-37); Albumin 3.6 g/dL (3.4-5.0); Alkaline Phosphatase 79 U/L (46-116); Anion Gap 9.6 mmol/L (3-11); Bilirubin, Total 0.3 mg/dL (0.2-1.0); CO2 24.4 mmol/L (21.0-32.0); Calcium 9.2 mg/dL (8.5-10.1); Chloride 103 mmol/L (98-107); Estimated GFR 17.14 (mL/min/1.73m2); Glucose 195 mg/dL (74-106); Lipase 64 U/L (<78); Potassium 5.2 mmol/L (3.5-5.1); Sodium 137 mmol/L (136-145); Total Protein 6.9 g/dL (6.4-8.2)
[2025-01-04 22:25] LABS: Bacteria Rare HPF (Negative); C & S Indicated? No; Crystals Negative HPF (Negative); Epithelial Cells Negative HPF (Negative); Mucus Trace (Negative); RBC 0-2 HPF (0-2); WBC 0-2 HPF (0-5)
[2025-01-04 22:28] LABS: Abs Immature Grans 0.02 10^3/uL (0.0-0.06); Absolute Basophil Count 0.04 10^3/uL (0.0-0.2); Absolute Eosinophil Count 0.37 10^3/uL (0.0-0.7); Absolute Lymphocyte Count 1.09 10^3/uL (1.2-3.4); Absolute Monocyte Count 0.56 10^3/uL (0.1-0.8); Absolute Neutrophil Count 3.52 10^3/uL (1.2-6.7); Basophils % 0.7 %; Eosinophils % 6.6 %; HCT 28.1 % (40.0-50.0); HGB 9.4 g/dL (13.5-17.5); Immature Grans % 0.4 %; Lymphocytes % 19.5 %; MCH 31.1 pg (27.0-33.0); MCHC 33.5 % (32.0-36.0); MCV 93 fL (80-95); Neutrophils % 62.8 %; Platelet Count 198 10^3/uL (130-400); RBC 3.02 10^6/uL (4.36-5.78); RDW 12.6 % (11.8-14.1); RDW-SD 42.9 fL
[2025-01-04 22:29] LABS: CREATININE 3.9 mg/dL (0.70-1.30)
[2025-01-04 22:30] LABS: BUN 94 mg/dL (7-18)
== END 2025-01-04 22:30 | disposition home or self-care (01) ==
LOC: LBN 22:29
PROVIDERS: PCP Physician Assistant; Visit Provider Physician Assistant Medical
DX: R10.11 Right upper quadrant pain (principal)
CPT/HCPCS: 80053; 83690; 81015; 85025; 87086

== ENCOUNTER 2025-01-05 07:20 | Outpatient (CLI) | payer MEDICAID, SELFPAY ==
--- NOTE | 2025-01-05 | DI.US_ITS ---
Exam(s) US ABDOMEN LIMITED EXAM: US ABDOMEN LIMITED CLINICAL HISTORY: RUQ PAIN,EVALUATE RT KIDNEY AND GB TECHNIQUE: Ultrasound abdomen performed using standard protocol. COMPARISON: CT CT CHEST/ABD/PEL WO from 01/18/2023 US POCUS EXAM from 04/17/2024 FINDINGS: There is no ascites evident. LIVER: Liver is hyperechoic applying steatosis and is mildly enlarged. There are no discrete focal h epatic lesions evident. GALLBLADDER/BILIARY: There are no shadowing gallstones but there are multiple nonmobile polyps noted. No gallbladder wall edema nor pericholecystic fluid The common hepatic duct isnot dilated, measuring 4mm at the level of marii hepatis. PANCREAS: There is no evidence of pancreatic mass nor dilatation of the pancreatic duct. RIGHT KIDNEY:No evidence of solid mass, calculus, nor hydronephrosis. No cortical cysts evident. Prev iously described upper pole hemorrhagic cyst is not evident on the present ultrasound images. IMPRESSION: 1. Hepatic steatosis and hepatomegaly. No discrete focal hepatic lesions. 2. Multiple gallbladder polyps noted. These corresponded 2 findings described is calculi on prior C T scan. 3. There are no findings in the right kidney evident on these images. The small 1 cm finding exophyt ic off the superior pole the right kidney described on CT scan of January 2023 is not evident on the ultr asound images. DATA REPOSITORY:
== END 2025-01-05 07:40 ==
LOC: DI 07:21
PROVIDERS: PCP Physician Assistant; Visit Provider Physician Assistant Medical
DX: K76.0 Fatty (change of) liver, not elsewhere classified (principal)
CPT/HCPCS: 76705

== ENCOUNTER 2025-04-26 14:12 | Outpatient (REF) | payer MEDICAID, SELFPAY ==
[2025-04-26 14:40] LABS: HCT 28.1 % (40.0-50.0); HGB 9.5 g/dL (13.5-17.5); MCH 31.4 pg (27.0-33.0); MCHC 33.8 % (32.0-36.0); MCV 93 fL (80-95); MPV 10.8 fL (8.0-11.0); Platelet Count 175 10^3/uL (130-400); RBC 3.03 10^6/uL (4.36-5.78); RDW 12.7 % (11.8-14.1); RDW-SD 43.3 fL; WBC 4.46 10^3/uL (4.4-10.8)
[2025-04-26 14:58] LABS: Iron 78 ug/dL (65-175); Total Iron Binding Capacity 299 ug/dL (250-450); Transferrin Sat 26 % (20-55)
[2025-04-26 15:09] LABS: Albumin 3.2 g/dL (3.4-5.0); Alkaline Phosphatase 64 U/L (46-116); Anion Gap 10.5 mmol/L (3-11); Bilirubin, Total 0.3 mg/dL (0.2-1.0); CO2 23.5 mmol/L (21.0-32.0); Calcium 8.8 mg/dL (8.5-10.1); Chloride 99 mmol/L (98-107); Cholesterol 311 mg/dL (<200); Estimated GFR 20.21 (mL/min/1.73m2); Ferritin 235 ng/mL (26-388); Glucose 279 mg/dL (74-106); HDL Cholesterol 31 mg/dL (>or=40); Potassium 4.1 mmol/L (3.5-5.1); Sodium 133 mmol/L (136-145); Total Protein 6.7 g/dL (6.4-8.2)
[2025-04-26 15:16] LABS: Hemoglobin A1C 10.3 % (<5.7)
[2025-04-26 16:06] LABS: BUN 80 mg/dL (7-18)
[2025-04-26 16:07] LABS: Triglyceride 1668 mg/dL (<150)
[2025-04-26 16:08] LABS: ALT 37 U/L (16-63); AST 41 U/L (15-37)
[2025-04-26 16:21] LABS: LDL CHOLESTEROL 71 mg/dL (<100)
[2025-04-26 16:51] LABS: Uric Acid 13.6 mg/dL (3.5-7.2)
== END 2025-04-26 14:13 | disposition home or self-care (01) ==
LOC: NCHCN 14:12
PROVIDERS: PCP Physician Assistant; Visit Provider Physician Assistant
DX: E11.22 Type 2 diabetes mellitus with diabetic chronic kidney disease (principal); D64.9 Anemia, unspecified; M10.9 Gout, unspecified
CPT/HCPCS: 80053; 80061; 83721; 85027; 82728; 83036; 83540; 83550; 84550

== ENCOUNTER 2025-07-10 00:26 | Outpatient (CLI) | payer MEDICAID, SELFPAY ==
--- NOTE | 2025-07-10 10:59 | W.NUTRFU ---
Date of service: 07/10/25 Time of Service: 10:00 Nutrition Note NOTE: Completed appt telephonically as Alvarado had a hard time working around his schedule and days off being reserved for other appts and such. He states he has been managing diabetes for >20years. He has a and 2 kids at home. He works ~35hours per week at [employer]. Currently denies any food insecurities - no SNAP benefits or other supplements/benefits. Alvarado had an A1C of 10.3 last April and has a hx of glucose out of target range. He has tried CGM's but has not had one that stayed on his arm more than a week. He currently takes capillary glucose measurements before each meal for purpose of his sliding scale insulin but no post prandial or HS checks. He takes 10mg Jardiance and is on a statin and furosemide. He informs me his insulin regimen is as follows: takes insulin Lispro on sliding scale before meals. He also takes Novolin N at meals - 40u at bkfst, 60u at lunch, and 50u at dinner. He also takes insulin Glagine (toujeo) 50units in AM and 50 units H. total of 8 injections per day. Also started Mounjaro weekly. Reviewed his drinks - states this is my vice - and relates drinking upwards of 800mg caffeine per day in energy drinks. Mostly no sugar varieiy but one coffee type he likes only comes in regular form. He does relate he knows he needs to drink more water and is trying to. I agreed this is a significant amount of caffeine and most assuredly will interfere with sleep which is already suffering d/t long hx of apnea. Also segwayed into added sugar and made a note that 30g Added sugars per day is a good goal and try to track to see where he lands and make adjustments with foods and drinks accordingly. Reviewed typical day of eating - he is consistent with 3 meals per day and usually a snack around 2/3 pm - can be guilty of evening snacking as well. Usual diet assessed as low in fiber. Encouraged at least 30g of fiber per day but preferrably more and discussed many of examples he gave me for meals resulted in only a few grams of fiber when he needs to aim for more like 10g per meal. Gave some suggestions for incrasing and encouraged to move up slowly with fiber. Encouraged baseline of at least 3 servings legumes per week and work at increasing as they are kidney-friendly protein source and will contribut slow starch and fiber to his regular diet - gave examples of ways to include. Reviewed goals towards end of out appt: 1) eat real traditional food choices most of the time 2) limit added sugars to 30g per day 3) aim for minimum of 30g fiber per day 4) make sure grain and grain products are at least 3g fiber per serving 5)reduce caffeine intake and work at better sleep quality 6)set aside time for purposeful movement and resistance exercise. Alvarado will work on the above and work with provider to adjust insulin as needed along the way. He has my contact info and is encouraged to reach out with any questions. declined to schedule follow up at this time. Time Spent in Nutritional Counseling and Treatment: 40 min
== END 2025-07-10 00:27 | disposition home or self-care (01) ==
LOC: DS 00:26
PROVIDERS: PCP Physician Assistant; Visit Provider Dietitian, Registered
DX: E11.22 Type 2 diabetes mellitus with diabetic chronic kidney disease (principal); M10.9 Gout, unspecified
CPT/HCPCS: 00123; 97802

== ENCOUNTER 2025-07-27 09:54 | Outpatient (REF) | payer MEDICAID, SELFPAY ==
[2025-07-27 15:51] LABS: HCT 28.1 % (40.0-50.0); HGB 9.4 g/dL (13.5-17.5); MCH 30.7 pg (27.0-33.0); MCHC 33.5 % (32.0-36.0); MCV 92 fL (80-95); MPV 10.0 fL (8.0-11.0); Platelet Count 239 10^3/uL (130-400); RBC 3.06 10^6/uL (4.36-5.78); RDW 12.6 % (11.8-14.1); RDW-SD 42.3 fL; WBC 5.32 10^3/uL (4.4-10.8)
[2025-07-27 16:26] LABS: ALT 44 U/L (16-63); AST 35 U/L (15-37); Albumin 3.4 g/dL (3.4-5.0); Alkaline Phosphatase 55 U/L (46-116); Anion Gap 14.8 mmol/L (3-11); Bilirubin, Total 0.3 mg/dL (0.2-1.0); CO2 20.2 mmol/L (21.0-32.0); Calcium 8.7 mg/dL (8.5-10.1); Chloride 103 mmol/L (98-107); Glucose 112 mg/dL (74-106); Potassium 4.1 mmol/L (3.5-5.1); Sodium 138 mmol/L (136-145); Total Protein 7.3 g/dL (6.4-8.2); Uric Acid 12.2 mg/dL (3.5-7.2)
[2025-07-27 16:36] LABS: BUN 85 mg/dL (7-18)
[2025-07-27 17:37] LABS: Hemoglobin A1C 9.4 % (<5.7)
[2025-07-27 18:02] LABS: Cholesterol 229 mg/dL (<200); HDL Cholesterol 32 mg/dL (>or=40); Vitamin D 25 Total 16 ng/mL (30-100)
== END 2025-07-27 09:55 | disposition home or self-care (01) ==
LOC: NCHCN 09:54
PROVIDERS: PCP Physician Assistant; Visit Provider Physician Assistant
DX: N18.30 Chronic kidney disease, stage 3 unspecified (principal); E78.5 Hyperlipidemia, unspecified; E11.22 Type 2 diabetes mellitus with diabetic chronic kidney disease
CPT/HCPCS: 80053; 80061; 82306; 83721; 85027; 83036; 83970; 84550

== ENCOUNTER → 2025-08-15 00:35 | Outpatient (CLI) | payer MEDICAID, SELFPAY ==
--- NOTE | 2025-08-15 | DI.US_ITS ---
Exam(s) US CAROTID EXAM: US CAROTID CLINICAL HISTORY: DIABETIC RETINOPATHY BOTH EYES, TYPE 2 DIABETES, MACULAR EDEMA. TECHNIQUE: Ultrasound carotids performed using grayscale, color-flow, and spectral Doppler imaging. COMPARISON: No exams were available for comparison FINDINGS: RIGHT CAROTID ARTERY: Plaque: Minimal calcific plaque in the carotid bulb. Velocity elevation: None. LEFT CAROTID ARTERY: Plaque: Minimal calcific plaque in the carotid bulb. Velocity elevation: None. VERTEBRAL ARTERIES: Antegrade flow. Measurements: R Bulb: 46.6cm/s PS / 9cm/s ED R CCA: 60.9cm/s PS / 16.8cm/s ED R ECA: 76.5cm/s PS / 6.4cm/s ED R ICA Prox: 53.9cm/s PS / 19.3cm/s ED R ICA Mid: 39.3cm/s PS / 14.4cm/s ED R ICA Distal: 68.9cm/s PS /28.9cm/s ED R Vert: 33.3cm/s PS / 12.7cm/s ED R SVR: 1.1 R DVR: 1.7 L Bulb: 65.7cm/s PS / 19cm/s ED L CCA: 72.2cm/s PS / 20.3cm/s ED L ECA: 74.7cm/s PS / 0cm/s ED L ICA Prox: 62.3cm/s PS / 24.4cm/s ED L ICA Mid: 69.7cm/s PS / 28cm/s ED L ICA Distal: 70.9cm/s PS / 30.5cm/s ED L Vert: 48.9cm/s PS / 19.5cm/s ED L SVR: 1 L DVR: 1.5 IMPRESSION: No evidence for hemodynamically significant carotid stenosis. Criteria for Carotid Stenosis: Normal: ICA PSV <125 cm/s no plaque or intimal thickening is visible. <50% stenosis: ICA PSV <125 cm/s and plaque or intimal thickening is visible. 50-69% stenosis: ICA PSV is 125-250 cm/s and plaque is visible. >70% stenosis to near occlusion: ICA PSV >250 cm/s with visible plaque and luminal narrowing. DATA REPOSITORY:
== END ==
LOC: DI 00:35
PROVIDERS: PCP Physician Assistant; Visit Provider Physician Assistant
DX: E11.319 Type 2 diabetes mellitus with unspecified diabetic retinopathy without macular edema (principal)
CPT/HCPCS: 93880